=== PATIENT | female | born 1930 | race Caucasian/White ===

== ENCOUNTER → 2016-04-05 | Outpatient (CLI) | payer OTHER ==
[~2016-04-05] MED LIST: AMIO200T PO; APIX5TAB PO; ASPI81CH37 CHEW; CARD240C6 PO; KRIL300C3 PO; LEVO137T2 PO; LOVA40TA PO; METO50TA11 PO; MULTTAB67 PO; PRIM250T5 PO; TOLT1CAP4 PO; VITA100C6 PO; VITA60003 PO
--- NOTE | 2016-04-09 10:19 | RSPPFT ---
DATE OF PROCEDURE: 04/05/16 COMMENTS: Spirometry with FVC of 2.3, FEV1 of 1.5, FEV1/FVC ratio at 64%. A positive response to acutely inhaled bronchodilator noted. Slow vital capacity is 58% of predicted. TLC is 100%. Diffusion capacity is normal. IMPRESSION: 1. Moderately severe obstructive airways disease. 2. A positive response to acutely inhaled bronchodilator noted.
== END ==
LOC: HRSP 12:02
PROVIDERS: ATTEND Family Medicine
DX: J98.8 Other specified respiratory disorders (principal); Z79.899 Other long term (current) drug therapy
CPT/HCPCS: 94060; 94726; 94729

== ENCOUNTER 2016-05-30 07:22 | Day surgery (SDC) | payer OTHER ==
[~2016-05-30 07:22] MED LIST changes: -CARD240C6 PO
[2016-05-30] MEDS ORDERED: PROPOFOL 200 MG/20 ML AMP IV ONE (07:57)
[2016-05-30] MEDS ORDERED: INSULIN HUMAN REGULAR 1,000 UNITS/10 ML VIAL SQ PRN (08:15)
[2016-05-30] MEDS ORDERED: METOPROLOL TARTRATE 25 MG TAB PO PRN (08:15)
[2016-05-30] MEDS ORDERED: SODIUM CHLORID 0.9% 500 ML IV SCH (08:15)
[2016-05-30] MEDS ORDERED: LACTATED RINGER'S 1000 ML IV SCH (08:15)
--- NOTE | 2016-05-30 18:28 | EKG ---
Date Performed: 05/30/2016 Time Performed: 07:42:30 PTAGE: 85 years EKG: Atrial fibrillation Possible left anterior fascicular block Possible anterior infarct - age undetermined Lateral T wave changes may be due to myocardial ischemia Abnormal ECG NO PREVIOUS TRACING DOCTOR: Tristen Cordon Interpretating Date/Time 05/30/2016 18:26:56
--- NOTE | 2016-05-31 00:03 | MR ---
cc: DANO COBIAN M.D. DATE: 05/30/2016 PROCEDURE: Cardioversion. INDICATIONS FOR PROCEDURE: Mrs. Tejada is an 85 year-old female with atrial fibrillation, previous ablation, atrial fibrillation, admitted for cardioversion. The risks, the nature and the benefit of the procedure are clearly stated to her. Risks include cardiac arrest, need for endotracheal intubation, stroke, need for temporary pacing and even . The patient understood and agreed to proceed. PROCEDURE NOTE: After written informed consent was obtained, the patient was evaluate by the anesthesiologist. Once sedation verified, anterolateral pads were placed, a 200 sync biphasic joule was delivered that converted the patient into sinus rhythm. No incident report. The patient tolerated procedure. CONCLUSION: Successful cardioversion. COMMENT AND RECOMMENDATIONS: The patient will be observed and discharged home later today. Dano Cobian MD /[place] /11:03 PM /11:48 PM
== END 2016-05-30 13:18 | disposition home or self-care (01) ==
LOC: HDOC 07:22 → HDIC 07:23 → HDOC 13:18
PROVIDERS: ATTEND Internal Medicine Interventional Cardiology
DX: I48.91 Unspecified atrial fibrillation (principal); I10 Essential (primary) hypertension; R06.02 Shortness of breath
CPT/HCPCS: 92960; 93005

== ENCOUNTER 2016-07-23 14:05 | Day surgery (SDC) | payer OTHER ==
[~2016-07-23] VITALS: Ht 167.6 cm; Wt 74.5 kg
[2016-07-23] MEDS ORDERED: METOPROLOL TARTRATE 25 MG TAB PO PRN (14:45)
[2016-07-23] MEDS ORDERED: LACTATED RINGER'S 1000 ML IV PRN (14:45)
[2016-07-23] MEDS ORDERED: INSULIN HUMAN REGULAR 1,000 UNITS/10 ML VIAL SQ PRN (14:45)
[2016-07-23] MEDS ORDERED: POVIDONE IODINE 5% (ANTISEPSIS KIT) 4 APPLICATIONS EACH NARE PRN (14:45)
[2016-07-23] MEDS ORDERED: CHLORHEXIDINE GLUCONATE 2 % 1 PACK (2 CLOTHS) TOPICAL PRN (14:45)
[2016-07-23] MEDS ORDERED: SODIUM CHLORID 0.9% 500 ML IV PRN (14:45)
[2016-07-23] MEDS ORDERED: LORazepam 1 MG TAB SL SCH (14:45)
[2016-07-23] MEDS ORDERED: LEVOFLOXACIN 500 MG PREMIX INJ 100 ML IV ONE (15:00)
[2016-07-23] MEDS: SODIUM CHLORID 0.9% 500 ML INJ 500 ML IV SCH (15:00)
[2016-07-23 15:02] VITALS: BP 171/123; PULSE 116; RESP 18; TEMP 98.4; O2SAT 98
[2016-07-23 15:05] LABS: AUTOMATED NEUTROPHIL # 5.2 TH/MM3 (1.8-7.7); BASOPHIL # 0.1 TH/MM3 (0-0.2); BASOPHIL % 0.9 % (0.0-2.0); EOSINOPHIL # 0.2 TH/MM3 (0-0.4); EOSINOPHIL % 2.2 % (0.0-4.0); HEMATOCRIT 41.9 % (35.0-46.0); HEMO FLAGS DIFF FINAL; LYMPH % 21.4 % (9.0-44.0); LYMPHOCYTE # 1.7 TH/MM3 (1.0-4.8); MEAN CELL VOLUME 97.6 FL (80.0-100.0); MEAN CORPUSCULAR HGB CONC 33.8 % (32.0-36.0); MONO % 8.7 % (0.0-8.0); NEUT % 66.8 % (16.0-70.0); PLATELET COUNT 224 TH/MM3 (150-450); RED BLOOD COUNT 4.29 MIL/MM3 (4.00-5.30); RED CELL DISTRIBUTION WIDTH 14.9 % (11.6-17.2); WHITE BLOOD COUNT 7.8 TH/MM3 (4.0-11.0)
[2016-07-23] MEDS ORDERED: CARD240C6 PO (15:07)
[2016-07-23 15:16] LABS: POTASSIUM 4.1 MEQ/L (3.5-5.1)
[2016-07-23 15:20] LABS: APTT (PATIENT) 24.5 SEC (24.3-30.1); INTERNATIONAL NORMALIZED RATIO 1.1 RATIO; PROTHROMBIN TIME - PATIENT 12.2 SEC (9.8-11.6)
[2016-07-23] MEDS ORDERED: HEPARIN-NS/PF INJ 500 ML ONE (15:52)
[2016-07-23] MEDS ORDERED: PROPOFOL 200 MG/20 ML AMP OTHER ONE (16:46)
[2016-07-23] MEDS ORDERED: ISOPROTERENOL HCL 1 MG/5 ML AMP ONE (17:03)
[2016-07-23] MEDS ORDERED: PROTAMINE SULFATE 50 MG/5 ML VIAL ONE (17:03)
[2016-07-23] MEDS ORDERED: HEPARIN SODIUM - IV 10,000 UNITS/10 ML VIAL ONE (17:03)
[2016-07-23] MEDS ORDERED: HEPARIN-D5W INJ 250 ML ONE (17:03)
--- NOTE | 2016-07-23 18:55 | CATHPROC ---
[facility] HIS Report Study Information Study Number Scheduled Start Study Start [id number] 07/23/2016 Jul 23 2016 3:47PM Referring Institution Admit Source Facility Department 1 Other [facility] - Informatics Spec Physician and Clinical Staff Initial Maria Teresa Summers Energy Director Concepcion Amador,SEATING AND MOBILITY TECHNOLOGIST TECH2 Energy Director Juan Antonio Pardo,RT(R) Other Anesthesia, SERVICE ENGINE REPAIRER Recorder Kaci Pizarro,RN Recorder Ilana Macario,NERISSA Scrub Dottie Pendleton RCIS Procedures Performed Procedure Location (Site) Vessel Name Ablation Procedure Cardioversion ICE CATHETER INSERT RA Atruim RF Ablation LT. ATRIUM LT. ATRIUM RF Ablation RA Atruim Equipment Time Gas And Oil Checker Description Size Mfg Part Number Used/Scraped NEEDLE, TRANSSEPTAL NRG 98 15:51 [facility] [id number] Used C1 [employer]/ EP 15:51 KIT, TRANSDUCER / AFIB [id number] Used PACER COVER, TRANSDUCER CABLE 15:51 [employer] [id number] Used ACUNAV WIRE, GUIDE AMPLATZ STIFF 17:49 COOK/PACER 3MMJ [id number] Used 180CM 15:51 CORDIS/PACER SHEATH, FR10 RAMIRO 11CM FR 10 [id number] Used 15:51 CORDIS/PACER SHEATH, FR9 RAMIRO 11CM FR 9 [id number] Used 15:51 [employer] PACK, CCL CUSTOM * [id number] Used 15:51 [employer] PACER [place], LIMB * [id number] Used [id number] 15:51 [employer] MEDICAL SHEATH, FR4.5 PRELUDE 11CM FR 4.5 Used [id number] 15:51 NAMIC TUBING, HIGH PRESSURE 48" 48" [id number] Used 15:51 NAMIC TUBING, HIGH PRESSURE 48" 48" [id number] Used 15:51 [employer] BLANKET,WARM AIR CCL * [id number] Used CATHETER, TACTICATH ABLAT [id number] 15:51 [facility] [employer] Used 65 BUNDLE BUNDLE CATHETER, FR7 OPTIMA SPIRAL 15:51 [facility] [facility] MEDICAL FR7 [id number] Used BUNDLE 15:51 [facility] MEDICAL CATHETER, JSN, QUAD BUNDLE FR 5 [id number] Used 15:51 [facility] MK MEDICAL CATHETER, JSN, QUAD BUNDLE FR 5 [id number] Used 15:51 [facility] MEDICAL ELECTRODE KIT, MARIA GUADALUEP X SURFACE * [id number] Used SET, [place] TUBING 15:51 [facility] MEDICAL [id number] Used BUNDLE 15:51 [facility]. MK MEDICAL SHEATH, EPS, FR6 FAST CATH FR 6 [id number] Used 15:51 [facility] MK MEDICAL SHEATH, EPS, FR7 FAST CATH FR 7 [id number] Used 15:51 [facility] MEDICAL SHEATH, EPS, FR8 FAST CATH FR 8 [id number] Used SHEATH, FR8.5 STEERABLE SM 15:51 [facility] MEDICAL 71CM [id number] Used 71CM BUNDLE [facility] PAD, ELECTROSURGICAL 15:51 * [id number] Used SURGICAL GROUNDING (BLUE) History: Allergies Allergy Reaction NKDA History: Risk Factors Hypertension Dyslipidemia Yes Yes Labs Hgb (g/dl) Hct (%) RBC (MIL/MM3) WBC (l/cumm) Platelets (thousands) 12.00-18.00 37.00-55.00 4.80-6.20 4.80-10.80 140.00-450.00 14.0 21 4.2 7.8 224 Glucose (mg/dl) BUN (mg/dl) Creatinine (mg/dl) BUN:Creatinine (1:x) 60.00-110.00 8.00-20.00 0.10-9.00 10.00-20.00 96 20 0.9 22.2 Na (meq/l) K (meq/l) 138.00-146.00 3.80-5.10 138 4.1 INR (PTT:PT) 0.50-2.00 1.1 Medication Medication Total Dose (Bolus/Oral) Medication Total Dosage/Unit 1% XYLOCAINE 40 mL HEPARIN 12278 units PROTAMINE 40 mg Medications (Bolus/Oral) Medication Time Given Dosage/Unit Administered By Reason 1% XYLOCAINE 07/23/2016 5:36:12 PM 20 mL Maria Teresa Cobian 20 mL 1% XYLOCAINE given in lab by Maria Teresa Cobian in Left Groin via Subcutaneous. 1% XYLOCAINE 07/23/2016 5:40:27 PM 20 mL Mango, Maria Teresa 20 mL 1% XYLOCAINE given in lab by Maria Teresa Cobian in Right Groin via Subcutaneous. HEPARIN 07/23/2016 5:50:45 PM 84261 units Anesthesia, SERVICE ENGINE REPAIRER As per physicians v erbal order 34111 units HEPARIN given in lab by Anesthesia, SERVICE ENGINE REPAIRER via Peripheral IV. Ordered by Maria Teresa Cobian. Carolynn son: As per physicians verbal order. PROTAMINE 07/23/2016 6:37:03 PM 40 mg Anesthesia, SERVICE ENGINE REPAIRER As per physicians lorene bal order 40 mg PROTAMINE given in lab by Anesthesia, SERVICE ENGINE REPAIRER via Peripheral IV. Ordered by Maria Teresa Cobian. Reason: As per physicians verbal order. Medication (Drip) Medication Time Given Dosage/Unit Concentration/Unit Diluent (ml) Solution ISUPREL 07/23/2016 6:31:03 PM 2 mcg/min 1 mg 250 NaCl .9 2 mcg/min ISUPREL given in lab by Anesthesia, SERVICE ENGINE REPAIRER via Peripheral IV. Pump/Drip Flow = 30 ml/hr using NaCl .9 with a concentration of 1 mg in 250 ml. Ordered by Maria Teresa Cobian. Initial Case Assessment Cardiovascular HR Rhythm NIBP 104 af 178/130 Edema Present Skin color Skin None Normal Warm Dry Neurological State Oriented to time-place- Alert Moves all extremities person Respiration - General Respiration Rate SpO2 (%) O2 (lpm) (B/min) 16 95 0 Final Case Assessment Cardiovascular HR Rhythm NIBP Chest Pain 88 sr 166/110 0 Edema Present Skin color Skin None Normal Warm Dry Circulatory - Right Pulses Dorsalis Pedis 3 Scale (0,1,2,3,4,d) Circulatory - Left Pulses Dorsalis Pedis 2 Scale (0,1,2,3,4,d) Circulatory - Lower Extremities Color Lower Right Color Lower Left Normal Normal Neurological State Oriented to time-place- Lethargic Moves all extremities person Respiration - General Respiration Rate SpO2 (%) O2 (lpm) (B/min) 16 99 4 Chronological Log Time Study Chronological Log 16:25:50 Patient arrived via Bed. 16:36:14 Patient Name, D.O.B, / Armband Verified By R.N. 16:36:21 Pre-op and post- op instructions given; patient acknowledges understanding of instructions. 16:36:26 Presedation assessment performed by Informatics Spec RN. 16:36:43 Patient has been NPO for More than 6Hrs. 16:36:53 Consent signed by the physician and the patient and verified by the Informatics Spec staff. 16:37:03 Verbal Stimulation=2 Physical Stimulation=2 Airway=2 Respiration=2 TOTAL=2. (0=absent, 1=li mited, 2=present) 16:37:34 Skin Breakdown. None per pt. 16:37:45 Patient Warmer Placed on the Table. 16:37:51 Ean Prominences Protected 16:37:53 A # 20 IV was noted in the Antecubital (left). Grade = 0 16:38:49 A # 20 IV was noted in the Forearm (right). Grade = 0 16:39:07 History and physical on the chart or being dictated. Assessment: Initial Case, RY=073 BPM, Rhythm=af, EEIB=440/130 mmhg, Edema=None, Color=Normal, S kin = Warm, Dry 16:39:11 Neurological: State=Alert, Ox3, BERMAN Respiration: Resp=16 B/min, SpO2=95 %, O2=0 lpm 16:40:47 Table restraints applied according to hospital policy 16:41:00 Right groin prepped with 2% chlorhexidine, and with a 3 min. waiting time. 16:45:00 Anesthesia at bedside. Assumes care of patient. See anesthesia flow sheet for all vital sig ns and medications given. 16:51:57 Reference ECG taken 16:56:38 SE out. MM in. 16:56:44 St Mk rep present. 17:13:25 Anesthesiologist present for intubation. 17:23:08 MD paged 17:23:22 MD responded 17:26:31 MD arrived. Time Out. Correct patient, procedure, procedure equipment, site and side verified with physicia n present. Time 17:30:00 concurred by MD, individual staff and SERVICE ENGINE REPAIRER. Time Out #2 - Consents verified, patient in correct position, all results are labled and displa yed, safety precautions 17:30:13 taken, antibiotics administered. Time out concurred by MD, individual staff and SERVICE ENGINE REPAIRER in procedu re 17:30:37 Case Start 17:30:52 Yunier in progress. 17:35:19 Yunier complete. 17:36:12 20 mL 1% XYLOCAINE given in lab by Maria Teresa Cobian in Left Groin via Subcutaneous. 17:36:39 Vascular access was obtained in the Fem Vein (left). 17:36:46 Vascular access was obtained in the Fem Vein (left). 17:36:58 Vascular access was obtained in the Fem Vein (left). 17:37:06 Vascular access was obtained in the Fem Art (left). A SHEATH, FR4.5 PRELUDE 11CM FR 4.5 was advanced into the Fem Art (left) using the Modified Katie geoffrey technique. 17:37:25 0.9ns pressure bag connected. 17:37:55 A SHEATH, EPS, FR6 FAST CATH FR 6 was advanced into the Fem Vein (left) using the Modified Seldinger technique. 17:38:05 A SHEATH, EPS, FR7 FAST CATH FR 7 was advanced into the Fem Vein (left) using the Modified Seldinger technique. 17:38:20 A SHEATH, FR10 RAMIRO 11CM FR 10 was advanced into the Fem Vein (left) using the Modified S eldinger technique. 17:40:27 20 mL 1% XYLOCAINE given in lab by Maria Teresa Cobian in Right Groin via Subcutaneous. 17:40:52 Vascular access was obtained in the Fem Vein (right). 17:40:57 A SHEATH, EPS, FR8 FAST CATH FR 8 was advanced into the Fem Vein (right) using the Modified Seldinger technique. 17:43:21 Reference ECG taken A CATHETER, JSN, QUAD BUNDLE FR 5 was advanced vis Fem Vein (left) and placed in the CS. Placem ent was visually 17:43:22 confirmed under fluoroscopy. 17:44:08 Beginning of case Body Temp 35.9. A CATHETER, JSN, QUAD BUNDLE FR 5 was advanced vis Fem Vein (left) and placed in the HIS. Place ment was 17:44:55 visually confirmed under fluoroscopy. 17:46:51 ice catheter Was Postioned. A SHEATH, FR8.5 STEERABLE SM 71CM BUNDLE 71CM was exchanged in the Fem Vein (right). This was n ecessary in 17:47:01 order for catheter support. 17:48:29 Unable to advance [place] over 0.035 wire. Amplatz wire used 17:50:[place] [address] units HEPARIN given in lab by Anesthesia, SERVICE ENGINE REPAIRER via Peripheral IV. Ordered by Damon Cobian Reason: As per 17:50:45 physicians verbal order. 17:52:14 A eps was advanced to the right atrium and passed through the septal wall to the left atriu m. 17:52:20 [place] out A CATHETER, FR7 OPTIMA SPIRAL BUNDLE FR7 was advanced vis Fem Vein (right) and placed in the LA . Placement 17:52:48 was visually confirmed under fluoroscopy. Mapping in progress. 17:58:00 Activated Clotting Time Drawn A CATHETER, TACTICATH ABLAT 65 BUNDLE was advanced vis Fem Vein (right) and placed in the LA. P lacement was 18:02:29 visually confirmed under fluoroscopy. 18:04:45 Mapping complete. Mapping catheter removed. 18:04:54 RF Ablation of the LT. ATRIUM with a CATHETER, TACTICATH ABLAT 65 BUNDLE. 18:07:18 ACT (Normal Range 90-180) = 342 18:18:00 Activated Clotting Time Drawn 18:20:27 RF Catheter was removed A CATHETER, TACTICATH ABLAT 65 BUNDLE was advanced vis Fem Vein (right) and placed in the HRA. Placement 18:22:46 was visually confirmed under fluoroscopy. 18:23:24 RF Ablation of the RA with a CATHETER, TACTICATH ABLAT 65 BUNDLE. 18:23:30 Ablation complete. 18:23:40 ECG rhythm of AFnoted. Patient cardioverted at 200 joules. synch 18::58 Monitor noted SB. 18:24:00 ACT (Normal Range 90-180) = 347 18:26:50 Catheters removed without difficulty. A SHEATH, FR9 RAMIRO 11CM FR 9 was exchanged in the Fem Vein (right). This was necessary in ord er to achieve 18:27:09 vascular hemostasis. 2 mcg/min ISUPREL given in lab by Anesthesia, SERVICE ENGINE REPAIRER via Peripheral IV. Pump/Drip Flow = 30 ml/hr using NaCl .9 with 18:31:03 a concentration of 1 mg in 250 ml. Ordered by Maria Teresa Cobian. 18:32:30 Isuprel gtt off per order. 40 mg PROTAMINE given in lab by Anesthesia, SERVICE ENGINE REPAIRER via Peripheral IV. Ordered by Maria Teresa Cobian. R allyson: As per 18:37:03 physicians verbal order. 18:39:11 PACU called. Spoke to Phuong 18:39:24 Bedside Report will be given. 18:39:26 No case complications noted. 18:39:34 Ablation procedure performed: AFIB. 18:39:37 EP Procedure was performed. 18:39:47 Catheter was removed 18:40:[address], sutured, 0.9ns kvo connected and will be removed in Holding Area 18:40:49 No case complications noted. 18:40:50 Cine recording checked. 18:47:30 Activated Clotting Time Drawn 18:50:35 ACT (Normal Range 90-180) = 140 18:50:52 Sterile dressing applied to site 18:50:53 Case End 18:51:16 Defibrillator and ground pads removed. Skin intact. Assessment: Final Case, HR=88 BPM, Rhythm=sr, RMLU=329/110 mmhg, Chest Pain=0, Edema=None, Col or=Normal, Skin = Warm, Dry Right Pulses: Salty Ped=3 Left Pulses: Salty Ped=2 18:51:20 Lower Right Extremities: Color=Normal Lower Left Extremities: Color=Normal Neurological: State=Lethargic, Ox3, BERMAN Respiration: Resp=16 B/min, SpO2=99 %, O2=4 lpm 18:58:39 Patient moved to stretcher End Study - Contrast Media Used In Study Contrast Total Opened (mL) Total Used (mL) Total Wasted (mL) Unspecified 0 0 0 End Study - Maximum Contrast Load Max Contrast Load (mL) 413.9 End Study - Radiation Exposure Fluoro Time (minutes) 4.1 End Study - Patient Disposition Complications Transferred To Interventional Outcome No Telemetry Bed successful
[2016-07-23] MEDS ORDERED: LIDOCAINE HCL 1% 50 ML VIAL INFIL PRN (19:00)
[2016-07-23] MEDS ORDERED: ONDANSETRON HCL 4 MG/2 ML VIAL IV PRN (19:00)
[2016-07-23] MEDS ORDERED: ATROPINE SULFATE 1 MG/ML VIAL IV PRN (19:00)
[2016-07-23] MEDS ORDERED: LORazepam 2 MG/ML VIAL IV PRN (19:00)
[2016-07-23] MEDS ORDERED: SODIUM CHLOR 0.9% 250 ML INJ 250 ML IV PRN (19:00)
[2016-07-23] MEDS ORDERED: METOCLOPRAMIDE HCL 10 MG/2 ML VIAL IV PRN (19:00)
[2016-07-23] MEDS ORDERED: oxyCODONE/ACETAMINOPHEN 5 MG/325 MG TAB PO PRN ×2 (19:00)
[2016-07-23] MEDS ORDERED: fentaNYL CITRATE 250 MCG/5 ML AMP ONE (19:22)
[2016-07-23] MEDS ORDERED: BACITRACIN OINT 0.9 GM PKT TOP ONE (19:30)
[2016-07-23 20:30] VITALS: BP 146/88; PULSE 56; RESP 18; TEMP 97.5; O2SAT 95
[2016-07-23 20:48] VITALS: PULSE 55
[2016-07-23 21:00] VITALS: PULSE 56
[2016-07-23] MEDS: APIXABAN 5 MG TABLET PO SCH (21:32)
[2016-07-23 22:00] VITALS: PULSE 57
--- NOTE | 2016-07-23 22:34 | EKG ---
Date Performed: 07/23/2016 Time Performed: 19:30:35 PTAGE: 85 years EKG: SINUS BRADYCARDIA WITH FIRST DEGREE AV BLOCK INFERIOR MYOCARDIAL INFARCTION , PROBABLY OLD ABNORMAL ECG PREVIOUS TRACING : 07/23/2016 15.03 Compared to previous tracing, Sinus rhythm has replaced atrial fibrillation. DOCTOR: Dennis Fitzgerald Interpretating Date/Time 07/23/2016 22:33:26
--- NOTE | 2016-07-23 22:39 | EKG ---
Date Performed: 07/23/2016 Time Performed: 15:03:14 PTAGE: 85 years EKG: Atrial fibrillation with rapid ventricular response Leftward axis Possible anterior infarct - age undetermined Abnormal ECG PREVIOUS TRACING : 05/30/2016 07.42 No significant change from previous tracing noted. DOCTOR: Dennis Fitzgerald Interpretating Date/Time 07/23/2016 22:38:07
[2016-07-23 23:28] VITALS: BP 106/69; PULSE 58; PULSE 70; RESP 18; TEMP 97.8; O2SAT 93
[2016-07-24] VITALS (11 sets, daily range): BP systolic 124–129; BP diastolic 73–86; PULSE 61–76; RESP 18–20; TEMP 97.7–97.8; O2SAT 98–99
[2016-07-24] MEDS ORDERED: LEVOTHYROXINE SODIUM 25 MCG TAB PO SCH (06:00)
[2016-07-24] MEDS ORDERED: LEVOTHYROXINE SODIUM 112 MCG TAB PO SCH (06:00)
[2016-07-24] MEDS: SODIUM CHLORID 0.9% 500 ML INJ 500 ML IV SCH (07:40)
--- NOTE | 2016-07-24 08:17 | PD.CARD.PN ---
Subjective Subjective Remarks No complaints Objective Medications Current Medications Medications (Trade) Dose Ordered Sig/Charisma Route Start Time Stop Time Status Last Admin (NS 500 ml Inj) 500 ml @ 30 mls/hr [id number] IV 07/23/16 15:00 (Percocet 5-325 Mg) 1 tab Q4H PRN PO 07/23/16 19:00 (Percocet 5-325 Mg) 2 tab Q4H PRN PO 07/23/16 19:00 (Ativan Inj) 0.5 mg UNSCH PRN IV 07/23/16 19:00 07/24/16 18:59 Atropine Sulfate 0.5 mg 0.5 mg UNSCH PRN IV 07/23/16 19:00 (NS 250 ml Inj) 250 ml @ 500 mls/hr ONCE PRN IV 07/23/16 19:00 07/24/16 18:59 (Reglan Inj) 10 mg Q4H PRN IV 07/23/16 19:00 (Zofran Inj) 4 mg Q4H PRN IV 07/23/16 19:00 (Xylocaine 1% Inj (50 ml)) 10 ml UNSCH PRN INFIL 07/23/16 19:00 07/24/16 18:59 (Cordarone) 200 mg DAILY PO 07/24/16 09:00 (Eliquis) 5 mg BID PO 07/23/16 21:00 07/23/16 21:32 (Aspirin Chew) 81 mg DAILY CHEW 07/24/16 09:00 (Cardizem Cd) 240 mg DAILY PO 07/24/16 09:00 (Pravachol) 40 mg DAILY PO 07/24/16 09:00 (Mysoline) 125 mg TID PO 07/24/16 09:00 (Synthroid) 112 mcg DAILY@06 PO 07/24/16 06:00 07/24/16 06:06 (Theragran) 1 tab DAILY PO 07/24/16 09:00 (Synthroid) 25 mcg DAILY@06 PO 07/24/16 06:00 07/24/16 06:06 Vital Signs / I&O Vital Signs Date Time Temp Pulse Resp B/P Pulse Ox O2 Delivery O2 Flow Rate FiO2 07/24/16 07:00 65 07/24/16 07:00 99 07/24/16 07:00 97.7 65 20 129/86 99 07/24/16 06:13 61 07/24/16 05:13 62 07/24/16 04:28 61 07/24/16 03:00 66 Nasal Cannula 2.00 07/24/16 03:00 66 07/24/16 03:00 97.8 70 18 124/73 98 07/24/16 02:50 97 Nasal Cannula 2.00 07/24/16 02:20 61 07/24/16 01:05 62 07/24/16 00:00 64 07/23/16 23:32 93 Nasal Cannula 3.00 07/23/16 23:28 70 07/23/16 23:28 97.8 58 18 106/69 93 07/23/16 22:00 57 07/23/16 21:00 56 07/23/16 20:48 55 07/23/16 20:30 95 Nasal Cannula 3.00 07/23/16 20:30 97.5 56 18 146/88 95 07/23/16 20:15 97.6 56 18 140/85 100 Nasal Cannula 3 07/23/16 20:00 58 17 134/79 99 Nasal Cannula 3 07/23/16 19:45 58 20 137/86 99 Nasal Cannula 3 07/23/16 19:30 57 19 145/82 100 Nasal Cannula 3 07/23/16 19:15 65 22 150/84 100 Nasal Cannula 3 07/23/16 19:11 97.4 67 21 147/89 95 Nasal Cannula 3 07/23/16 15:02 98.4 116 18 171/123 98 I/O 07/23/16 07/23/16 07/23/16 07/24/16 07/24/16 07/24/16 07:00 15:00 23:00 07:00 15:00 23:00 Intake Total 1050 ml 240 ml Output Total 800 ml 150 ml Balance 250 ml 90 ml Intake Oral 50 ml 240 ml Other 1000 ml Output Urine Total 800 ml 150 ml Stool Total 0 ml Physical Exam GENERAL: Well-nourished, well-developed patient. SKIN: Warm and dry. Groin sites soft without swelling or bleeding. HEAD: Normocephalic. EYES: No scleral icterus. No injection or drainage. NECK: Supple, trachea midline. No JVD or lymphadenopathy. CARDIOVASCULAR: Regular rate and rhythm without murmurs, gallops, or rubs. RESPIRATORY: Breath sounds equal bilaterally. No accessory muscle use. GASTROINTESTINAL: Abdomen soft, non-tender, nondistended. EXTREMITIES: No cyanosis, or edema. NEUROLOGICAL: Awake, alert, and oriented x 3. Non-focal. Laboratory Laboratory Tests Test 07/23/16 14:36 White Blood Count 7.8 TH/MM3 Red Blood Count 4.29 MIL/MM3 Hemoglobin 14.2 GM/DL Hematocrit 41.9 % Mean Corpuscular Volume 97.6 FL Mean Corpuscular Hemoglobin 33.0 PG Mean Corpuscular Hemoglobin 33.8 % Concent Red Cell Distribution Width 14.9 % Platelet Count 224 TH/MM3 Mean Platelet Volume 8.4 FL Neutrophils (%) (Auto) 66.8 % Lymphocytes (%) (Auto) 21.4 % Monocytes (%) (Auto) 8.7 % Eosinophils (%) (Auto) 2.2 % Basophils (%) (Auto) 0.9 % Neutrophils # (Auto) 5.2 TH/MM3 Lymphocytes # (Auto) 1.7 TH/MM3 Monocytes # (Auto) 0.7 TH/MM3 Eosinophils # (Auto) 0.2 TH/MM3 Basophils # (Auto) 0.1 TH/MM3 CBC Comment DIFF FINAL Differential Comment Prothrombin Time 12.2 SEC Prothromb Time International 1.1 RATIO Ratio Activated Partial 24.5 SEC Thromboplast Time Sodium Level 138 MEQ/L Potassium Level 4.1 MEQ/L Chloride Level 98 MEQ/L Carbon Dioxide Level 32.0 MEQ/L Anion Gap 8 MEQ/L Blood Urea Nitrogen 20 MG/DL Creatinine 0.97 MG/DL Estimat Glomerular Filtration 55 ML/MIN Rate Random Glucose 96 MG/DL Calcium Level 9.8 MG/DL Blood Type A POSITIVE Antibody Screen NEGATIVE Assessment and Plan Problem List: (1) Atrial fibrillation Assessment and Plan: NSR on tele s/p ablation. (2) S/P ablation of atrial fibrillation Assessment and Plan: Groin sites stable, NSR on tele. Continue Eliquis. DC home, f/u with Dr. Cobian in 3 weeks per my d/w him. Problem Qualifiers (1) Atrial fibrillation: Qualified Code: I48.91 - Atrial fibrillation, unspecified type Inez Steen July 24, 2016 08:17
[2016-07-24] MEDS: APIXABAN 5 MG TABLET PO SCH (08:54)
[2016-07-24] MEDS ORDERED: MULTIVITAMIN TAB PO SCH (09:00)
[2016-07-24] MEDS ORDERED: PRIMIDONE 250 MG TAB PO SCH (09:00)
[2016-07-24] MEDS ORDERED: ASPIRIN 81 MG CHEW TAB CHEW SCH (09:00)
[2016-07-24] MEDS ORDERED: PRAVASTATIN SOD 40 MG TAB PO SCH (09:00)
[2016-07-24] MEDS ORDERED: AMIODARONE 200 MG TAB PO SCH (09:00)
[2016-07-24] MEDS ORDERED: DILTIAZEM-CD 240 MG CAP ER PO SCH (09:00)
[2016-07-24 09:07] LABS: APTT (PATIENT) 26.1 SEC (24.3-30.1); INTERNATIONAL NORMALIZED RATIO 1.2 RATIO; PROTHROMBIN TIME - PATIENT 13.2 SEC (9.8-11.6)
--- NOTE | 2016-07-24 11:47 | EKG ---
Date Performed: 07/24/2016 Time Performed: 06:36:56 PTAGE: 85 years EKG: Sinus rhythm with PAC(s) Possible anterior infarct - age undetermined Low QRS voltages in precordial leads Abnorm al ECG PREVIOUS TRACING : 07/23/2016 19.30 No significant change from previous tracing noted. DOCTOR: Dennis Fitzgerald Interpretating Date/Time 07/24/2016 11:46:06
--- NOTE | 2016-07-29 17:40 | ETE ---
Study Study Date:07/23/2016 STUDY CONCLUSIONS SUMMARY - Left ventricle: The cavity size was normal. Wall thickness was normal. Systolic function was severely reduced. The estimated ejection fraction was in the range of 20% to 25%. Wall motion was normal; there were no regional wall motion abnormalities. - Aortic valve: No evidence of vegetation. - Mitral valve: No evidence of vegetation. Mild regurgitation. - Left atrium: The atrium was moderately dilated. No evidence of thrombus in the atrial cavity or appendage. No evidence of thrombus in the atrial cavity or appendage. No evidence of thrombus in the atrial cavity or appendage. - Right atrium: No evidence of thrombus in the atrial cavity or appendage. - Atrial septum: No defect or patent foramen ovale was identified. Echo contrast study showed no xaegs-tk-demx atrial level shunt , at baseline or with provocation. Echo contrast study showed no jrdrk-yo-yzeg atrial level shunt, at baseline or with provocation. - Tricuspid valve: No evidence of vegetation. Mild regurgitation. - Pulmonic valve: No evidence of vegetation. If LV function is below 40, please consider prescribing an ACEI or ARB or document rationale for non-use. PROCEDURE DATA Consent: The risks, benefits, and alternatives to the procedure were explained to the patient and informed consent was obtained. Procedure: Initial setup. The patient was brought to the laboratory in the fasting state. Intravenous access was obtained. Surface ECG leads and pulse oximetric signals were monitored. Sedation. Conscious sedation was administered by cardiology staff. Transesophageal echocardiography. Topical anesthesia was obtained using viscous lidocaine. A transesophageal probe was inserted by the attending tax collection coordinator. Image quality was good. Study completion: All IVs inserted during the procedure were removed. The patient tolerated the procedure well. There were no complications. Transesophageal echocardiography. 2D, complete spectral Doppler, and color Doppler. CARDIAC ANATOMY LEFT VENTRICLE: The cavity size was normal. Wall thickness was normal. Systolic function was severely reduced. The estimated ejection fraction was in the range of 20% to 25%. Wall motion was normal; there were no regional wall motion abnormalities. AORTIC VALVE: Trileaflet; mildly thickened, mildly calcified leaflets. Cusp separation was normal. No evidence of vegetation. Doppler: No significant regurgitation. Aorta: - There was no atheroma. There was no evidence for dissection. Aortic root: The aortic root was not dilated. Ascending aorta: The ascending aorta was normal in size. Aortic arch: The aortic arch was normal in size. Descending aorta: The descending aorta was normal in size. MITRAL VALVE: Structurally normal valve. Leaflet separation was normal. No evidence of vegetation. Doppler: Mild regurgitation. LEFT ATRIUM: The atrium was moderately dilated. No evidence of thrombus in the atrial cavity or appendage. No evidence of thrombus in the atrial cavity or appendage. No evidence of thrombus in the atrial cavity or appendage. The appendage was morphologically a left appendage, multilobulated, and of normal size. Emptying velocity was normal. ATRIAL SEPTUM: No defect or patent foramen ovale was identified. Echo contrast study showed no cwzmg-ws-qeai atrial level shunt, at baseline or with provocation. Echo contrast study showed no gwvts-wj-dnor atrial level shunt, at baseline or with provocation. RIGHT VENTRICLE: The cavity size was normal. Wall thickness was normal. Systolic function was normal. PULMONIC VALVE: Structurally normal valve. No evidence of vegetation. TRICUSPID VALVE: Structurally normal valve. Leaflet separation was normal. No evidence of vegetation. Doppler: Mild regurgitation. PULMONARY ARTERY: The main pulmonary artery was normal-sized. RIGHT ATRIUM: The atrium was normal in size. No evidence of thrombus in the atrial cavity or appendage. The appendage was morphologically a right appendage. PERICARDIUM: There was no pericardial effusion. Prepared and signed by Maria Teresa Cobian [id number]
--- NOTE | 2016-09-12 19:40 | PD.CARD ---
Atrial Fibrillation Ablation PROCEDURE DATE: July 23, 2016 PROCEDURES PERFORMED: 1. Electrophysiology study on Isuprel infusion 2. CS cannulation 3. 3-D mapping 4. Transseptal approach 5. Right and left heart catheterization 6. Intracardiac echo 7. Radiofrequency ablation of atrial fibrillation 8. Pulmonary vein isolation 9. Posterior wall ablation 10. Mitral valve isolation 11. Mitral line creation 12. Left atrial tachycardia ablation 13. Roof line creation 14. Floor line creation 15. Anterior and posterior ablation 16. Cardioversion INDICATIONS FOR THE PROCEDURE Ms. Tejada is a 85-year-old female with atrial fibrillation, previous ablation, symptomatic, on anticoagulation, admitted for electrophysiology study and ablation. The risks, the nature and the benefits of the procedure were clearly stated to her. The risks include pneumothorax, cardiac perforation, stroke, need for open heart surgery and even . The patient understood and agreed to proceed. DESCRIPTION OF THE PROCEDURE IN DETAIL As written informed consent was obtained prior to esophageal echocardiogram, the patient was kept on the table where she was prepped and draped in the usual sterile fashion. Conscious sedation was initiated and maintained throughout the procedure by the anesthesiologist. Once sedation was verified, the right and left inguinal areas were anesthetized with 2% Xylocaine. Using modified Seldinger technique, the left femoral vein was cannulated on three occasions, three guidewires were advanced. Over the wire a 6, 7 and a 10-Hungarian Hemaquet were advanced. Then the left femoral artery was cannulated on one occasion, one guidewire was advanced. Over the wire a 4-Hungarian Hemaquet was advanced. Then the right femoral vein was cannulated on one occasion, one guidewire was advanced. Over the wire a 8-Hungarian Hemaquet was advanced. Then under fluoroscopic guidance through the 6 and 7-Hungarian Hemaquet, two 5-Hungarian Jordana curved quadripolar electrophysiology catheters were advanced and placed around the His as well as coronary sinus. Basic interval was measured. The patient was in atrial fibrillation. Through the 10-Hungarian Hemaquet, a CordWorkpop Garber AcuNav intracardiac echo catheter was advanced and placed at the right atrium. Multiple view was obtained. There was no pericardial effusion, pulmonary vein was seen, atrial septal was visualized. Then the 8-Hungarian Hemaquet in the right femoral vein was exchanged for Agilis transseptal sheath that was placed all the way to the superior vena cava. Through the sheath a Gato needle was advanced, then the sheath, the dilator and the needle were progressed until foci engaged. Once engaged, the needle was advanced. RF was delivered for 2 seconds. I was able to cross into the left atrium. Once the needle crossed, the dilator was advanced. Once the dilator crossed, the sheath was advanced. Once the sheath crossed, the dilator and the needle were removed. At this point I did flood the system and fluid movement was seen in the left atrium the indicates the sheath is in good position. The patient already received 10,000 units of heparin. The goal is to keep an ACT around 350 during ablation. Then through the sheath a St. Mk 20 pulse circumferential catheter was advanced. Using Matchbook endocardial solution mapping system, a two-dimensional configuration of the left atrium was obtained. Points were taken at the left superior and inferior veins, right superior and inferior veins, mitral valve, and appendages. There were signals around the left superior and right inferior veins. Then through the sheath a St. Mk TactiCath 65cm 3.5mm irrigated tipped mapping and radiofrequency ablation catheter was advanced. Esophageal probe was placed temperature monitoring during ablation. When it increased to 0.5 degrees Celsius above baseline, I moved to a different area of the atrium. First I did isolate the left superior and inferior vein. I did make a big [place] around the veins. Posterior was ablated. Then a roof line was created, a floor line was created, a mitral line was isolated, then the mitral valve was isolated. The patient was already in left atrial tachycardia. I did create a new line from the floor to the roof area, passing by the left atrial appendage. Then the right superior and inferior veins were isolated. I did remap the atrium. There is no significant signal in the atrium. At this point I decided to proceed with cardioversion. A 200 sync biphasic joule was delivered that converted the patient into sinus rhythm. At that point I did advance the circumferential catheter again into the vein. There was no signal into the vein, pacing from the vein showed no conduction to the atrium. Isuprel infusion was initiated at 20 mcg for 10 minutes. No tachyarrhythmia was induced, post Isuprel no tachyarrhythmia was induced. At that point the procedure was complete. All catheters were removed, atrial septal sheath was exchanged for 9-Hungarian Hemaquet, intracardiac echo showed no pericardial effusion. There is still good flow in the pulmonary vein. The patient is going to be transferred to the recovery room. No incident report. The patient tolerated the procedure. Blood loss was minimal. FINDINGS 1. Electrocardiogram: At baseline the patient was in atrial fibrillation, post procedure the patient was in sinus rhythm. 2. Basic interval: Base cycle length was around 540. Post ablation she was around 980 milliseconds. 3. Tachyarrhythmia: Atrial fibrillation was mapped and ablated. Atrial tachycardia was ablated. The ablation was successful. CONCLUSION Successful electrophysiology study, mapping, radiofrequency ablation of atrial fibrillation, left atrial tachycardia, pulmonary vein isolation, posterior ablation, mitral valve isolation, mitral line creation, roof line creation, floor line creation, left atrial tachycardia, and cardioversion. COMMENTS AND RECOMMENDATIONS The patient is going to be transferred to the telemetry unit. Will be observed and when stable can be discharged home. Maria Teresa Cobian MD Sep 12, 2016 19:40
== END 2016-07-24 11:25 | disposition home or self-care (01) ==
LOC: HDOC 14:05 → HDIC 14:07 → HCIN 20:30 → HDOC 07-24 11:25
PROVIDERS: ATTEND Internal Medicine Interventional Cardiology
DX: I48.91 Unspecified atrial fibrillation (principal); R00.2 Palpitations; I12.9 Hypertensive chronic kidney disease with stage 1 through stage 4 chronic kidney disease, or unspecified chronic kidney disease; N18.9 Chronic kidney disease, unspecified; E78.5 Hyperlipidemia, unspecified; E03.9 Hypothyroidism, unspecified; R25.1 Tremor, unspecified
CPT/HCPCS: 00537; 80048; 85002; 85025; 85610; 85730; 86850; 86900; 86901; 92960; 93005; 93312; 93320; 93325; 93613; 93623; 93656; 93662; C1730; C1731; C1732; C1759; C1766; C2630; J1644; J1956; J2720; J3010

== ENCOUNTER 2017-06-03 13:13 | Day surgery (SDC) | payer OTHER ==
[~2017-06-03 13:13] MED LIST changes: -ASPI81CH37 CHEW; +ASPI81CH6 CHEW; +CARD240C6 PO; -METO50TA11 PO; -TOLT1CAP4 PO; -VITA60003 PO
[2017-06-03 14:12] VITALS: BP 159/116; PULSE 94; RESP 20; TEMP 97.8; O2SAT 92
[2017-06-03] MEDS ORDERED: LEVO175T2 PO (14:14)
[2017-06-03] MEDS ORDERED: VITA250T3 PO (14:14)
[2017-06-03] MEDS ORDERED: XARE20TA PO (14:14)
[2017-06-03] MEDS ORDERED: PRIM50TA5 PO (14:14)
[2017-06-03] MEDS ORDERED: POTA-163 PO (14:16)
[2017-06-03] MEDS ORDERED: METO100T PO (14:16)
[2017-06-03] MEDS ORDERED: FURO1TAB60 PO (14:16)
--- NOTE | 2017-06-03 14:26 | RADRPT ---
EXAM DATE/TIME: 06/03/2017 13:39 [facility] COMPARISON: No previous studies available for comparison. INDICATIONS : Left pleural effusion. MEDICAL HISTORY : Hypertension. Thyroid disease. SURGICAL HISTORY : None. ENCOUNTER: Initial ACUITY: 1 day PAIN SCORE: 0/10 LOCATION: Left chest MEASUREMENTS: SKIN TO PARIETAL PLEURA: 2.6 cm SKIN TO MAX SAFE DEPTH: 5.4 cm ESTIMATED FLUID VOLUME: 445 cc FLUID COMPOSITION: simple FINDINGS: Pleural effusion as above. CONCLUSION: 1. Simple appearing moderate size left pleural effusion, as above. Giovani Monique MD on June 03, 2017 at 14:24 Board Certified Radiologist. This report was verified electronically.
[2017-06-03 14:32] LABS: AUTOMATED NEUTROPHIL # 3.9 TH/MM3 (1.8-7.7); BASOPHIL % 0.9 % (0.0-2.0); EOSINOPHIL # 0.1 TH/MM3 (0-0.4); HEMATOCRIT 34.2 % (35.0-46.0); HEMOGLOBIN 11.7 GM/DL (11.6-15.3); LYMPH % 12.5 % (9.0-44.0); LYMPHOCYTE # 0.7 TH/MM3 (1.0-4.8); MEAN CELL VOLUME 96.8 FL (80.0-100.0); MEAN CORPUSCULAR HEMOGLOBIN 33.2 PG (27.0-34.0); MEAN CORPUSCULAR HGB CONC 34.3 % (32.0-36.0); MEAN PLATELET VOLUME 8.1 FL (7.0-11.0); MONO % 13.9 % (0.0-8.0); MONOCYTE # 0.8 TH/MM3 (0-0.9); NEUT % 71.7 % (16.0-70.0); PLATELET COUNT 115 TH/MM3 (150-450); RED BLOOD COUNT 3.54 MIL/MM3 (4.00-5.30); RED CELL DISTRIBUTION WIDTH 15.4 % (11.6-17.2); WHITE BLOOD COUNT 5.4 TH/MM3 (4.0-11.0)
[2017-06-03 14:41] LABS: INTERNATIONAL NORMALIZED RATIO 1.2 RATIO; PROTHROMBIN TIME - PATIENT 12.4 SEC (9.8-11.6)
[2017-06-03 14:58] LABS: TOTAL PROTEIN 6.9 GM/DL (6.4-8.2)
[2017-06-03 15:30] VITALS: BP 149/99; PULSE 79; RESP 20; TEMP 97.7; O2SAT 95
[2017-06-03] MEDS ORDERED: HEPARIN SODIUM - IV 10,000 UNITS/10 ML VIAL OTHER ONE (15:45)
--- NOTE | 2017-06-03 16:16 | MR ---
cc: Gilberto Sheets MD 06/03/2017 PROCEDURE: Left thoracentesis. PREOPERATIVE DIAGNOSIS: Left pleural effusion. PROCEDURE NOTE: Informed consent was obtained from the patient. The procedure and the complications including the complication of anesthesia, pneumothorax requiring chest tube, injury to blood vessels, lungs, nausea, arrhythmia, hypoxia, pneumothorax requiring chest tube were explained. She consented for the procedure. The left side of the chest was marked with US. Chest was cleaned with ChloraPrep and 1% lidocaine. Infiltration anesthesia was used with 16 gauge Angio-cath. Thoracentesis was done and hemorrhagic fluid was obtained .It was hooked up to a vacuum bottle. 450 mL was removed then fluid stopped coming and the procedure was terminated. She tolerated the procedure well. Pleural fluid is sent for protein, glucose, LDH, cell count and differential, routine culture, AFB fungal culture and cytology. Postprocedure, successful removal of fluid, rule out pneumothorax. Gilberto Sheets MD ADA/DL/rr , 03:20 PM , 03:35 PM [facility]
--- NOTE | 2017-06-03 16:24 | RADRPT ---
EXAM DATE/TIME: 06/03/2017 15:26 [facility] COMPARISON: No previous studies available for comparison. INDICATIONS : Post left thoracentesis. MEDICAL HISTORY : Hypertension. Thyroid disease. SURGICAL HISTORY : None. ENCOUNTER: Initial ACUITY: 1 day PAIN SCORE: 0/10 LOCATION: Bilateral chest FINDINGS: The exam demonstrates a small left effusion with consolidation of the left lower lobe. There is no pn eumothorax. The right lung is clear. The heart is mildly enlarged. The osseous structures demonstrate degenerative changes but are grossly intact. CONCLUSION: 1. No pneumothorax identified following left thoracentesis. 2. Continued atelectasis and consolidation of the left lung base. Gonzalez Martinez MD on June 03, 2017 at 16:22 Board Certified Radiologist. This report was verified electronically.
[2017-06-03 16:46] LABS: TOTAL PROTEIN,PLEURAL FLUID 3.4 GM/DL
[2017-06-03 20:36] LABS: PLEURAL FLUID HISTIOCYTES 9 %; PLEURAL FLUID LYMPHS 53 %; PLEURAL FLUID MESOTHELIAL 1 %; PLEURAL FLUID MONOS 4 %; PLEURAL FLUID POLYS (SEGS) 33 %
[2017-06-03 20:40] LABS: PLEURAL FLUID RBC 18739 /MM3 (0-0); PLEURAL FLUID WBC 870 /MM3 (0-10)
--- NOTE | 2017-06-04 08:16 | MH ---
cc: Gilberto Sheets MD DATE OF ADMISSION: 06/03/2017 CHIEF COMPLAINT: The patient will come for left thoracentesis on 06/03/2017. HISTORY OF PRESENT ILLNESS: Ms. Tejada is a pleasant 86-year-old female with history CHF, atrial fibrillation, shortness of breath which is getting worse. She had a chest x-ray done which shows moderate size left pleural effusion, small right pleural effusion. She has no cough or sputum production, no fever, chills, no night sweats, no chest pain. PAST MEDICAL HISTORY: History of atrial fibrillation, hypertension, essential, familial tremors, history of bladder implant. MEDICATIONS She takes Xarelto 20 mg a day, aspirin 81 mg a day, primidone 250 mg a day, diltiazem 240 mg a day, metoprolol 100 mg, Lasix 40 mg a day, pravastatin 40 mg a day, potassium 20 mEq a day, amiodarone 200 mg a day, levothyroxine once a day. ALLERGIES: SHE IS ALLERGIC TO SIMVASTATIN. SOCIAL HISTORY: She has no history of smoking. She used to drink rarely which she quit. 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 She is a , lives alone. She has 5 children. One has drug problem. She has 3 brothers, 2 . Has 3 sisters, all . REVIEW OF SYSTEMS: Feels weak, mild shortness of breath, no bleeding from any site, no seizure, stroke or epilepsy, has lost some weight. PHYSICAL EXAMINATION: GENERAL: A frail elderly female, not in acute distress. VITAL SIGNS: Blood pressure 144/80, heart rate 79, respirations 18, weight 163, pulse ox saturation 97%. HEENT: Pupils equal and reactive to light. Oral mucosa, nasal mucosa normal. NECK: Supple. JVP not raised. CHEST: Dull to percussion, decreased breath sounds at the left base. CARDIOVASCULAR: S1, S2 normal. ABDOMEN: Benign. EXTREMITIES: No edema. IMPRESSION: 1. Moderate size left pleural effusion. 2. Congestive heart failure. 3. Atrial fibrillation 4. Dyspnea. 5. Hypertension. 6. Tremors. 7. Status post bladder implant. PLAN: She will need thoracentesis. I explained to her the procedure and the complications including complications of anesthesia, pneumothorax, possible chest tube placement, injury to blood vessles, nerves, arrthmias, hypoxia. She will have to hold her Xarelto for 3 days and while she is off Xarelto she will be at increased risk of thromboembolic events and stroke which she understands well. She will be scheduled for thoracentesis at [facility] for 06/03/2017. Follow up in 2 weeks. Gilberto Sheets MD ADA/rt , 10:18 PM , 11:23 PM [facility]
[2017-06-05 14:33] LABS: AMYLASE BODY FLUID 30 U/L; AMYLASE BODY FLUID TYPE PLEURAL
== END 2017-06-03 16:49 | disposition home or self-care (01) ==
LOC: HRAD 13:13 → HRIP 13:19 → HRAD 16:49
PROVIDERS: ATTEND Specialist
DX: J90 Pleural effusion, not elsewhere classified (principal); Z79.01 Long term (current) use of anticoagulants; Z79.899 Other long term (current) drug therapy; I10 Essential (primary) hypertension; E07.9 Disorder of thyroid, unspecified; I50.9 Heart failure, unspecified; I48.91 Unspecified atrial fibrillation; R06.02 Shortness of breath; J98.11 Atelectasis
CPT/HCPCS: 32554; 71045; 76604; 82150; 82945; 82947; 83615; 83986; 84155; 84157; 85025; 85610; 85730; 87015; 87070; 87102; 87116; 87205; 87206; 88112; 88305; 89051; J1644

== ENCOUNTER 2017-09-26 12:13 | Observation (INO) ==
[2017-09-26] MEDS ORDERED: Iohexol 300 MG/ML 100 ML Vial (for Rad CT) IVCONTRAST ONE (12:14)
[2017-09-26] MEDS ORDERED: Sod Chloride 0.9% Inj 1,000 ML IV.SIG ONE (18:25)
--- NOTE | 2017-09-26 19:10 | ED ---
HPI General Chief complaint: Medical Clearance Stated complaint: possible fluid in stomach Time Seen by Provider: 09/26/17 18:14 Source: patient Mode of arrival: ambulatory Limitations: no limitations History of Present Illness HPI narrative: 36-year-old female presents to the emergency department for evaluation of swelling of the upper abdomen and chest that is been present for a couple of weeks. She says that she had a CT abdomen pelvis performed Saturday with Dr. Barriga, her primary care physician. She does not know the results of this. Says that she was here in April and had a thoracentesis because of edema in the chest and abdomen. She says that she believes this started after taking her "water pill". She says she started bloating afterwards. She denies fever, chills, chest pain, shortness of breath, abdominal pain. She says she has been urinating and has normal bowel movements. Says she does have a bladder device implanted and this helps her control her bladder. This was 6 years ago that this was implanted. Related Data Home Medications Medication Instructions Recorded Confirmed amiodarone 200 mg PO DAILY 09/26/17 09/26/17 apixaban [Eliquis] 5 mg PO BID 09/26/17 09/26/17 ascorbic acid (vitamin C) [Vitamin 500 mg PO DAILY 09/26/17 09/26/17 C] aspirin [Aspirin Low Dose] 81 mg PO DAILY 09/26/17 09/26/17 calcium citrate-vitamin D3 1 tab PO QAM 09/26/17 09/26/17 [Citracal + D Maximum] furosemide [Lasix] 40 mg PO BID 09/26/17 09/26/17 levothyroxine 200 mcg PO DAILY 09/26/17 09/26/17 metoprolol succinate 50 mg PO AC DINNER 09/26/17 09/26/17 metoprolol succinate 100 mg PO DAILY 09/26/17 09/26/17 multivitamin 1 tab PO DAILY 09/26/17 09/26/17 polyvinyl alcohol [Artificial 1 drop EACH EYE BID 09/26/17 09/26/17 Tears (polyvin alc)] potassium chloride 10 meq PO DAILY 09/26/17 09/26/17 pravastatin 40 mg PO DAILY 09/26/17 09/26/17 primidone 125 mg PO Q12H 09/26/17 09/26/17 Allergies Allergy/AdvReac Type Severity Reaction Status Date / Time simvastatin Allergy Unknown Rash Verified 09/26/17 12:30 Review of Systems Except as stated in HPI: all other systems reviewed are negative FOR[facility]LY [facility] Medical History Medical History COPD (chronic obstructive pulmonary disease) (Acute) Hypertension (Acute) Surgical History Surgical History Hx of tonsillectomy (Acute) Social History Social History Substance History: No History of Abuse Second Hand Smoke Exposure: Yes Smoking Status: Never smoker How Often Do You Have a Drink Containing Alcohol: Never Recent Travel in [facility] within the Last 8 Weeks: No Recent Out of Country Travel within the Last 8 Weeks: No Immunization History Tetanus Immunization: >5 Years Hx Influenza Vaccine This Season: Yes Exam Narrative Exam Narrative: GENERAL: WD, WN in NAD, resting tremor present SKIN: Focused skin assessment warm/dry. HEAD: Atraumatic. Normocephalic. EYES: Pupils equal and round. No scleral icterus. No injection or drainage. ENT: No nasal bleeding or discharge. Mucous membranes pink and moist. NECK: Trachea midline. No JVD. CARDIOVASCULAR: Regular rate and rhythm. No murmur appreciated. RESPIRATORY: No accessory muscle use. Clear to auscultation. Breath sounds equal bilaterally. GASTROINTESTINAL: Abdomen soft, non-tender, somewhat distended in the upper abdominal region without rebound tenderness. Hepatic and splenic margins not palpable. MUSCULOSKELETAL: No obvious deformities. No clubbing. No cyanosis. No edema. Homans sign negative bilaterally NEUROLOGICAL: Awake and alert. No obvious cranial nerve deficits. Motor grossly within normal limits. Normal speech. PSYCHIATRIC: Appropriate mood and affect; insight and judgment normal. Course Initial Documented Vital Signs Temperature 98.0 F 09/26/17 12:24 Pulse Rate 84 09/26/17 12:24 Respiratory Rate 18 09/26/17 12:24 Blood Pressure 143/96 H 09/26/17 12:24 Pulse Oximetry 94 L 09/26/17 12:24 Last Documented Vital Signs Temperature 98.3 F 09/27/17 02:55 Pulse Rate 96 H 09/27/17 02:55 Respiratory Rate 16 09/27/17 02:55 Blood Pressure 133/78 09/27/17 02:55 Pulse Oximetry 94 L 09/27/17 02:55 Medical Decision Making MARTHA Attestation MARTHA supervised visit: Yes Attestation: I, Dr. Gonzales, have reviewed the advance practice practitioner's documentation and am in agreement, met with the patient face to face, made the diagnosis, and the medical decision making was done by me. *My assessment and Findings: The patient has pericardial effusion pleural effusion and ascites. She has shortness of breath. Admission with a plan for evaluation by Dr. Sheets pulmonology and/or interventional radiology if necessary for pericardial effusion drainage. Dr. Sheets has performed thoracentesis previously. Patient is hemodynamically stable despite the presence of pericardial effusion. Case discussed with Dr. Flores. [facility] Narrative Medical decision making narrative: 86-year-old female presents emergency department for evaluation of upper abdominal swelling that is been present for a couple of weeks. Primary care physician who ordered a CT abdomen pelvis. Patient comes in today because the swelling has increased. She denies fever, chills, nausea, vomiting, diarrhea, abdominal pain. She believes that she needs to have fluid removed as she required this earlier this year. Denies history of cancer. Her vital signs are stable. Her labs are significant for an elevated alkaline phosphatase. Review the CT of the abdomen and pelvis from just a couple of days ago. There is concern for pericardial effusion and ascites. There are also small pleural effusions. I discussed this case my attending who recommended a CT abdomen pelvis for further evaluation. Please see his note for further information and disposition. Lab Data Lab results reviewed: Yes I reviewed the patient's lab results. Result diagrams: 09/26/17 18:40 09/26/17 18:40 Lab Results 09/26/17 09/26/17 09/26/17 Range/Units 18:40 18:40 18:40 WBC 4.3 (4.0-11.0) th/mm3 RBC 3.90 L (4.00-5.30) mil/mm3 Hgb 12.2 (11.6-15.3) gm/dL Hct 36.7 (35.0-46.0) % MCV 94.1 (80.0-100.0) fL MCH 31.2 (27.0-34.0) pg MCHC 33.2 (32.0-36.0) % RDW 15.3 (11.6-17.2) % Plt Count 184 (150-450) th/mm3 MPV 7.8 (7.0-11.0) fL Neut % (Auto) 63.5 (16.0-70.0) % Lymph % (Auto) 18.1 (9.0-44.0) % [place] % (Auto) 13.2 H (0.0-8.0) % Eos % (Auto) 4.3 H (0.0-4.0) % Baso % (Auto) 0.9 (0.0-2.0) % Neut # (Auto) 2.7 (1.8-7.7) th/mm3 Lymph # (Auto) 0.8 L (1.0-4.8) th/mm3 [place] # (Auto) 0.6 (0.0-0.9) th/mm3 Eos # (Auto) 0.2 (0.0-0.4) th/mm3 Baso # (Auto) 0.0 (0.0-0.2) th/mm3 WBC Differential . Differential Comment Auto diff final PT 12.7 H (9.8-11.6) sec INR 1.3 Ratio APTT 28.7 (24.3-30.1) sec Sodium 132 L (136-145) meq/L Potassium 5.0 (3.5-5.1) meq/L Chloride 94 L (98-107) meq/L Carbon Dioxide 29.6 (21.0-32.0) meq/L Anion Gap 8 (5-15) meq/L BUN 10 (7-18) mg/dL Creatinine 0.87 (0.50-1.00) mg/dL Estimated GFR 62 L (>89) mL/min Random Glucose 88 (74-106) mg/dL Calcium 9.7 (8.5-10.1) mg/dL Total Bilirubin 0.5 (0.2-1.0) mg/dL AST 35 (15-37) U/L ALT 21 (10-53) U/L Alkaline Phosphatase 313 H (45-117) U/L B-Natriuretic Peptide (0-100) pg/mL Total Protein 7.5 (6.4-8.2) g/dL Albumin 4.0 (3.4-5.0) g/dL Lipase 196 (73-393) U/L 09/26/17 Range/Units 18:40 WBC (4.0-11.0) th/mm3 RBC (4.00-5.30) mil/mm3 Hgb (11.6-15.3) gm/dL Hct (35.0-46.0) % MCV (80.0-100.0) fL MCH (27.0-34.0) pg MCHC (32.0-36.0) % RDW (11.6-17.2) % Plt Count (150-450) th/mm3 MPV (7.0-11.0) fL Neut % (Auto) (16.0-70.0) % Lymph % (Auto) (9.0-44.0) % [place] % (Auto) (0.0-8.0) % Eos % (Auto) (0.0-4.0) % Baso % (Auto) (0.0-2.0) % Neut # (Auto) (1.8-7.7) th/mm3 Lymph # (Auto) (1.0-4.8) th/mm3 [place] # (Auto) (0.0-0.9) th/mm3 Eos # (Auto) (0.0-0.4) th/mm3 Baso # (Auto) (0.0-0.2) th/mm3 WBC Differential Differential Comment PT (9.8-11.6) sec INR Ratio APTT (24.3-30.1) sec Sodium (136-145) meq/L Potassium (3.5-5.1) meq/L Chloride (98-107) meq/L Carbon Dioxide (21.0-32.0) meq/L Anion Gap (5-15) meq/L BUN (7-18) mg/dL Creatinine (0.50-1.00) mg/dL Estimated GFR (>89) mL/min Random Glucose (74-106) mg/dL Calcium (8.5-10.1) mg/dL Total Bilirubin (0.2-1.0) mg/dL AST (15-37) U/L ALT (10-53) U/L Alkaline Phosphatase (45-117) U/L B-Natriuretic Peptide 236 H (0-100) pg/mL Total Protein (6.4-8.2) g/dL Albumin (3.4-5.0) g/dL Lipase (73-393) U/L Imaging Data Attestation: I personally reviewed and interpreted this imaging study as follows : Radiologist's impression: ITS Impressions Abdomen/Pelvis CT 09/26/17 20:07 CONCLUSION: 1. Persistent moderate ascites and body wall edema/anasarca, nonspecific but potentially cardiac in origin. 2. Pleural and pericardial effusions and panchamber enlargement of the heart again noted. 3. No obstruction or acute inflammatory changes are demonstrated. Discharge Plan Discharge Disposition Patient Disposition: 30 Still Patient Physicians Team ED Provider: Gonzalez Gonzales ED Midlevel Provider: Elvia Black Primary Care Provider: Aguilar Barriga Attending Provider: Delvin Flores Other Providers: Dennis Fitzgerald Status ED Status: Admitted Observation Patient
[2017-09-26 19:15] LABS: Baso % (Auto) 0.9 % (0.0-2.0); Eos # (Auto) 0.2 th/mm3 (0.0-0.4); Eos % (Auto) 4.3 % (0.0-4.0); Hematocrit 36.7 % (35.0-46.0); Hemoglobin 12.2 gm/dL (11.6-15.3); Lymph # (Auto) 0.8 th/mm3 (1.0-4.8); Lymph % (Auto) 18.1 % (9.0-44.0); Mean Corpuscular HGB Conc 33.2 % (32.0-36.0); Mean Corpuscular Hemoglobin 31.2 pg (27.0-34.0); Mean Corpuscular Volume 94.1 fL (80.0-100.0); Mean Platelet Volume 7.8 fL (7.0-11.0); Mono # (Auto) 0.6 th/mm3 (0.0-0.9); Mono % (Auto) 13.2 % (0.0-8.0); Neut # (Auto) 2.7 th/mm3 (1.8-7.7); Neut % (Auto) 63.5 % (16.0-70.0); Platelet Count 184 th/mm3 (150-450); Red Cell Distribution Width 15.3 % (11.6-17.2); White Blood Count 4.3 th/mm3 (4.0-11.0)
[2017-09-26 19:27] LABS: Activated Partial Thrombo Time 28.7 sec (24.3-30.1); INR 1.3 Ratio; Prothrombin Time 12.7 sec (9.8-11.6)
[2017-09-26 19:41] LABS: Anion Gap 8 meq/L (5-15); Aspartate Aminotransferase 35 U/L (15-37); Blood Urea Nitrogen 10 mg/dL (7-18); Calcium 9.7 mg/dL (8.5-10.1); Carbon Dioxide 29.6 meq/L (21.0-32.0); Chloride 94 meq/L (98-107); Glomerular Filtration Rate 62 mL/min (>89); Glucose,Random 88 mg/dL (74-106); Lipase 196 U/L (73-393); Sodium 132 meq/L (136-145)
[2017-09-26 19:42] LABS: Alanine Aminotransferase 21 U/L (10-53)
[2017-09-26 19:44] LABS: Alkaline Phosphatase 313 U/L (45-117); Total Protein 7.5 g/dL (6.4-8.2)
[2017-09-26] MEDS ORDERED: Diatrizoate Meglum/Diatrizoate Sod Liq 9 ML UDC PO ONE (21:00)
--- NOTE | 2017-09-26 21:48 | ECG ---
Date Performed: 09/26/2017 Time Performed: 18:54:25 PTAGE: 86 years EKG: Baseline artifact present Artifact prevents accurate interpretation of baseline rhythm. POS SIBLE ANTERIOR MYOCARDIAL INFARCTION ABNORMAL RHYTHM ECG Compared to prior electrocardiogram, I canno t compare rhythm because of artifact. I see no other definite changes. PREVIOUS TRACING : 07/24/2016 06.36 DOCTOR: Santana Armas Interpretating Date/Time 09/26/2017 21:48:06
--- NOTE | 2017-09-26 23:08 | CT ---
EXAM DATE: 09/26/2017 10:56 PM EDT AGE/SEX: 86 years / Female INDICATIONS: Abdominal pain, distention. CLINICAL DATA: This is the patient's initial encounter. Patient reports that signs and symptoms have been present for 1 day and indicates a pain score of 5/10. MEDICAL/SURGICAL HISTORY: Chronic obstructive pulmonary disease. Hypertension. Tonsillectomy. ORAL CONTRAST: Prescribed oral contrast ingested. RADIATION DOSE: 13.61 CTDI (mGy) COMPARISON: POI, CT ABDOMEN W AND W/O CONTRAST, 09/20/2017. . TECHNIQUE: Multiple contiguous axial images were obtained through the abdomen and pelvis following b olus infusion of 80 ml Omnipaque 350 (iohexol) nonionic water-soluble contrast as a single exam dos e. Prescribed oral contrast ingested. Using automated exposure control and adjustment of the mA and/ or kV according to patient size, radiation dose was kept as low as reasonably achievable to obtain op timal diagnostic quality images. DICOM format image data is available electronically for review and comparison. FINDINGS: Decreased attenuation liver again noted. Spleen, pancreas and adrenal glands are within normal limits . Bilateral renal cysts are again seen. There are prominent bilateral extrarenal pelves but no defini te abhilash hydronephrosis. No obstruction or acute inflammatory changes seen of the gastrointestinal tract. No free air seen. Moderate ascites again noted, not significantly changed in volume. Small bilateral pleural effusions, large pericardial effusion and panchamber enlargement of the heart again noted. There is coronary ar radha calcification. There is body wall edema and anasarca. Scattered calcified uterine fibroids again seen. CONCLUSION: 1. Persistent moderate ascites and body wall edema/anasarca, nonspecific but potentially cardiac in origin. 2. Pleural and pericardial effusions and panchamber enlargement of the heart again noted. 3. No obstruction or acute inflammatory changes are demonstrated. Electronically signed by: pJ Gregory MD 09/26/2017 11:06 PM EDT
[2017-09-27] MEDS ORDERED: Temazepam 15 MG Capsule PO PRN (00:40)
[2017-09-27] MEDS ORDERED: Bisacodyl 10 MG Supp RECTAL PRN (00:40)
[2017-09-27] MEDS: Calcium/Vitamin D 250/125 MG Tablet PO SCH (05:30)
--- NOTE | 2017-09-27 11:28 | MB ---
cc: Dennis Fitzgerald MD DATE: 09/27/2017 REASON FOR CONSULTATION: Pericardial effusion. HISTORY OF PRESENT ILLNESS: The patient is an 86-year-old white female with a history of paroxysmal atrial fibrillation, apparently status post ablation sometime last year, history of hypertension and hyperlipidemia, who was sent to the hospital due to a moderate to large-sized pericardial effusion seen on recent echo and abdominal CT, as well as due to symptoms of increased shortness of breath and pedal edema. The patient states in the last few days she has had increased dyspnea with minimal exertion. She has chronic pedal edema which has also worsened over the last few weeks. She denies orthopnea, paroxysmal nocturnal dyspnea, chest pain, palpitations, lightheadedness, syncope, near-syncope, fevers, flu symptoms. PAST MEDICAL HISTORY: As above. No other details currently available. CARDIAC MEDICATIONS AT HOME: 1. Amiodarone 200 mg daily. 2. Eliquis 5 mg daily. 3. Aspirin 81 mg daily. 4. Metoprolol succinate 150 mg daily. 5. Furosemide 40 mg twice daily. 6. Pravastatin 40 mg daily. 7. Potassium chloride 10 mEq daily. ALLERGIES: SIMVASTATIN. FAMILY HISTORY: Noncontributory. SOCIAL HISTORY: The patient denies alcohol or tobacco abuse. REVIEW OF SYSTEMS: As in the History of Present Illness, otherwise negative or noncontributory. She also denies headache, abdominal pain, melena, dyspepsia, bright red blood per rectum. PHYSICAL EXAMINATION: VITAL SIGNS: Her blood pressure 134/82 with a pulse of 92, respirations 18. GENERAL: She is a well-developed, well-nourished white female, in no acute distress. HEENT/NECK: Jugular venous pressure is seen to the mandible. Carotid pulses are 2+ bilaterally and without bruits. CHEST: Reveals clear lungs rodriguez. CARDIAC: She has an irregularly irregular rhythm with a grade 1-2/6 systolic murmur heard at the right upper sternal border, as well as a grade 1-2/6 systolic murmur heard at the apex. The S2 heart sound is normal. No gallop is audible. ABDOMEN: She has a soft, nontender abdomen. Bowel sounds are present. There is no definite hepatosplenomegaly. EXTREMITIES: Reveals no clubbing or cyanosis. There is 2-3+ pretibial edema bilaterally. LABORATORY DATA: Potassium 5.0, BUN 10, creatinine 0.87. Brain natriuretic peptide level 236. WBC 4.3, hemoglobin 12.2, platelets 184. INR 1.3. EKG shows atrial fibrillation, borderline poor R-wave progression, low QRS voltage in the limb leads, diffuse nonspecific T-wave abnormality. IMPRESSION: Moderate to large-sized pericardial effusion demonstrated by recent echo and abdominal CT, increased pedal edema, severe tricuspid regurgitation in this 86-year-old white female with a history of paroxysmal atrial fibrillation, apparently status post cardioversion and ablation sometime last year, history of hypertension, hyperlipidemia. Although there was no echocardiographic evidence for pericardial tamponade, clinically the patient has deteriorated recently. She also has elevated jugular venous pressure on exam, although some of this jugular venous distention is likely due to tricuspid regurgitation. She did have a pericardial effusion on echocardiogram a year ago, but the size reportedly was small. Overall, in light of her increased symptomatology, I have recommended she undergo CT guided pericardiocentesis. With respect to her severe tricuspid regurgitation also demonstrated on a recent echo, would recommend conservative medical therapy. With respect to her atrial fibrillation, it appears mostly chronic based on EKG's in Dr. Cobian's office. RECOMMENDATIONS: 1. Interventional Radiology consultation for CT-guided pericardiocentesis today. 2. After pericardiocentesis, I recommend intravenous diuretic therapy to help mobilize her pedal edema and ascites. 3. After her pericardiocentesis, resume Eliquis. MD DAWIT Boggs/KIRILL , 11:08 AM , 11:27 AM SILVER
[2017-09-27 12:22] LABS: Bilirubin,Urine Negative (Negative); Clarity,Urine Cloudy (Clear); Color,Urine Yellow (Yellw/Straw); Glucose,Urine (UA) Negative (Negative); Nitrite,Urine Negative (Negative); Specific Gravity,Urine 1.019 (1.002-1.035)
[2017-09-27 12:23] LABS: Leukocyte Esterase,Urine Large (Negative); Mucus,Urine Few /lpf (Occasional); Squamous Epithelial Cell,Urine 1 /hpf (0-5)
--- NOTE | 2017-09-27 16:29 | ECHRPT ---
Indication: HEART FAILURE CONCLUSIONS Normal left ventricular size. Wall thickness is normal. The left ventricular systolic function is low normal with an estimated ejection fraction in the rang e of 50- 55%. The left atrial size is mrgavsim-ra-ifflmldl dilated. The right atrial size is severely dilated. No atrial level shunt is demonstrated by color flow Doppler interrogation. Jarh-od-lvngafwo mitral valve regurgitation. Aortic valve sclerosis is present. No aortic valve regurgitation. No aortic valve stenosis. There is severe tricuspid valve regurgitation. The estimated pulmonary arterial pressure is 50.4 mmHg. Mild to moderate pulmonary valve regurgitation. A left sided pleural effusion is present. A moderate left sided pleural effusion is noted. There is a tgtym-uu-chpyxwxn sized posterior, partially loculated pericardial effusion present. No hemodynamically significant echocardiographic features were observed (no pre-tamponade physiology). BP: / HR: Rhythm: Sinus MEASUREMENTS (Male / Female) Normal Values Technical Quality:Fair 2D ECHO LV Diastolic Diameter PLAX 3.6 cm 4.2 - 5.9 / 3.9 - 5.3 cm LV Systolic Diameter PLAX 2.9 cm IVS Diastolic Thickness 1.0 cm 0.6 - 1.0 / 0.6 - 0.9 cm LVPW Diastolic Thickness 1.0 cm 0.6 - 1.0 / 0.6 - 0.9 cm LV Relative Wall Thickness 0.5 RV Internal Dim ED PLAX 3.3 cm LVOT Diameter 2.1 cm Aortic Root Diameter 3.2 cm LA Systolic Diameter LX 4.0 cm 3.0 - 4.0 / 2.7 - 3.8 cm M-MODE AV Cusp Separation MM 1.1 cm DOPPLER AV Peak Velocity 176.5 cm/s AV Peak Gradient 12.5 mmHg AV Mean Gradient 6.5 mmHg AV Velocity Time Integral 31.5 cm LVOT Peak Velocity 106.1 cm/s LVOT Peak Gradient 4.5 mmHg LVOT Velocity Time Integral 17.5 cm AV Area Cont Eq vti 1.9 cm AV Area Cont Eq pk 2.1 cm Mitral E Point Velocity 119.5 cm/s LV E' Lateral Velocity 4.3 cm/s Mitral E to LV E' Lateral Ratio 27.9 LV E' Septal Velocity 3.0 cm/s Mitral E to LV E' Septal Ratio 39.6 TR Peak Velocity 318.0 cm/s TR Peak Gradient 40.4 mmHg Right Atrial Pressure 10.0 mmHg Pulmonary Artery Systolic Pressu 50.4 mmHg Right Ventricular Systolic Press 50.4 mmHg PV Peak Velocity 47.8 cm/s PV Peak Gradient 0.9 mmHg FINDINGS LEFT VENTRICLE Normal left ventricular size. Wall thickness is normal. The left ventricular systolic function is low normal with an estimated ejection fraction in the rang e of 50- 55%. RIGHT VENTRICLE Normal right ventricular size and systolic function. LEFT ATRIUM The left atrial size is rpzuwzab-lm-ewkjvaug dilated. RIGHT ATRIUM The right atrial size is severely dilated. ATRIAL SEPTUM No atrial level shunt is demonstrated by color flow Doppler interrogation. AORTA The aortic root and proximal ascending aorta are normal in size on limited imaging. MITRAL VALVE Wvia-bp-lsqovkhz mitral valve regurgitation. AORTIC VALVE Aortic valve sclerosis is present. No aortic valve regurgitation. No aortic valve stenosis. TRICUSPID VALVE There is severe tricuspid valve regurgitation. The estimated pulmonary arterial pressure is 50.4 mmHg. PULMONARY VALVE Mild to moderate pulmonary valve regurgitation. VESSELS The inferior vena cava is normal in size. PERICARDIUM A left sided pleural effusion is present. A moderate left sided pleural effusion is noted. There is a arrmn-hb-dfnyhpuj sized posterior, partially loculated pericardial effusion present. No hemodynamically significant echocardiographic features were observed (no pre-tamponade physiology). Tripp Ruiz MD, FACC (Electronically Signed) Final Date:27 September 2017 16:27
--- NOTE | 2017-09-27 16:32 | P.HPIM ---
History of Present Illness Primary Care Physician: Aguilar Barriga MD Chief Complaint: Sent for shortness of breath and pericardial effusion/pleural effusion History of Present Illness: 86-year-old female with a medical history significant for hypertension, paroxysmal A. fib, hyperlipidemia sent to the hospital for worsening shortness of breath, lower extremity edema. Patient was found to have a large pericardial effusion on a recent echocardiogram and abdominal CT. She reports increasing dyspnea with minimal exertion. She reports abdominal bloating. The patient currently denies chest pain. No nausea or vomiting. She states she is okay as long as she does not move much. - Diagnosis (1) Pericardial effusion (2) Pleural effusion (3) Ascites (4) Paroxysmal A-fib (5) Tricuspid regurgitation Inpatient Certification: I certify that the inpatient services were ordered in accordance with Medicare regulations governing the order. This includes certification that hospital inpatient services are reasonable and necessary and in the case of services not specified as inpatient-only under 42 CFR 419.22(n), that they are appropriately provided as inpatient services in accordance to with the 2-midnight benchmark under 43 CFR 412.3(e) Review of Systems All other systems reviewed negative except as stated in HPI PMFSH - History History Provided By: Patient - Medical History Medical History: Medical History (Last Updated 09/27/17 @ 17:02 by Deborah Shultz MD) COPD (chronic obstructive pulmonary disease) Hypertension Paroxysmal A-fib Pericardial effusion without cardiac tamponade Pleural effusion - Surgical History Surgical History: Surgical History (Last Reviewed 09/27/17 @ 17:02 by Deborah Shultz MD) Hx of tonsillectomy - Tobacco History Second Hand Smoke Exposure: Yes Tobacco Use In Past 30 Days: No Smoking Status: Never smoker - Alcohol History How Often Do You Have a Drink Containing Alcohol: Never - Substance Use History Substance History: No History of Abuse - Travel History Recent Travel in the [place] Within the Last 8 Weeks: No Recent Travel Out of the Country Within the Last 8 Weeks: No - Immunization History Tetanus Immunization: >5 Years Hx Influenza Vaccine This Season: Yes Medications and Allergies Active Medications: Active Medications Al Hydroxide/Mg Hydroxide (Milk Of Magnesia Liq) 30 ml PO Q12H PRN PRN Reason: Mild Constipation Bisacodyl (Dulcolax Supp) 10 mg RECTAL DAILY PRN PRN Reason: SEVERE CONSITIPATION Lactulose (Lactulose Liq) 30 ml PO DAILY PRN PRN Reason: SEVERE CONSITIPATION Sennosides (Senokot) 17.2 mg PO Q12H PRN PRN Reason: Moderate Constipation Sodium Chloride (Ns Flush) 2 ml IV.FLUSH PRN PRN PRN Reason: FLUSH AFTER USING IV ACCESS Temazepam (Restoril) 15 mg PO HS PRN PRN Reason: INSOMNIA Allergies Allergy/AdvReac Type Severity Reaction Status Date / Time simvastatin Allergy Unknown Rash Verified 09/26/17 12:30 Home Medications Medication Instructions Recorded Confirmed Type amiodarone 200 mg PO DAILY 09/26/17 09/26/17 History apixaban [Eliquis] 5 mg PO BID 09/26/17 09/26/17 History ascorbic acid (vitamin C) [Vitamin 500 mg PO DAILY 09/26/17 09/26/17 History C] aspirin [Aspirin Low Dose] 81 mg PO DAILY 09/26/17 09/26/17 History calcium citrate-vitamin D3 1 tab PO QAM 09/26/17 09/26/17 History [Citracal + D Maximum] furosemide [Lasix] 40 mg PO BID 09/26/17 09/26/17 History levothyroxine 200 mcg PO DAILY 09/26/17 09/26/17 History metoprolol succinate 50 mg PO AC DINNER 09/26/17 09/26/17 History metoprolol succinate 100 mg PO DAILY 09/26/17 09/26/17 History multivitamin 1 tab PO DAILY 09/26/17 09/26/17 History polyvinyl alcohol [Artificial 1 drop EACH EYE BID 09/26/17 09/26/17 History Tears (polyvin alc)] potassium chloride 10 meq PO DAILY 09/26/17 09/26/17 History pravastatin 40 mg PO DAILY 09/26/17 09/26/17 History primidone 125 mg PO Q12H 09/26/17 09/26/17 History Exam Vital signs: Vital Signs 09/26/17 17:29 09/26/17 17:57 09/26/17 18:52 Temperature 97.5 F L 97.6 F Pulse Rate 73 72 87 Respiratory Rate 22 22 Blood Pressure 142/95 H 142/95 H Pulse Oximetry 97 97 09/26/17 20:01 09/26/17 20:02 09/26/17 20:03 Temperature Pulse Rate 88 79 Respiratory Rate 18 Blood Pressure 153/96 H Pulse Oximetry 95 95 09/27/17 00:30 09/27/17 00:52 09/27/17 02:55 Temperature 98.3 F Pulse Rate 76 96 H Respiratory Rate 18 16 Blood Pressure 144/72 H 133/78 Pulse Oximetry 99 94 L 94 L 09/27/17 08:00 09/27/17 09:00 09/27/17 09:02 Temperature 97.6 F Pulse Rate 70 92 H Respiratory Rate 18 Blood Pressure 134/82 Pulse Oximetry 94 L 94 L 09/27/17 11:27 09/27/17 16:06 Temperature 98.3 F 98 F Pulse Rate 87 95 H Respiratory Rate 18 16 Blood Pressure 143/81 H 131/78 Pulse Oximetry 96 95 Intake & Output 09/26/17 09/27/17 09/27/17 18:59 06:59 18:59 Intake Total 1000 / 1000 Balance 1000 / 1000 Weight 76.657 kg 77 kg Intake: IV 1000 / 1000 NS Inj 1,000 ML @ Wide Open IV. 1000 / 1000 SIG BOLUS ONE Rx#:[id number] Other: # Voids 1 Weight On Admission 76.657 kg Narrative: GENERAL: Elderly female in no acute distress at rest. CARDIOVASCULAR: JVD present. Normal rate, irregular rhythm. 2 out of 6 LINDA best heard over the right upper sternal border RESPIRATORY: Good respiratory efforts. Breath sounds equal and clear to auscultation bilaterally. GASTROINTESTINAL: Abdomen soft, non-tender, non-distended. Normal active bowel sounds MUSCULOSKELETAL: 2+ bilateral lower extremity pitting edema NEURO: Alert & Oriented x4 to person, place, time, situation. Moves all ext x4 PSYCH: Appropriate mood and affect. Results - Labs CBC & Chem 7: 09/26/17 18:40 09/26/17 18:40 Labs: Short CBC 09/26/17 Range/Units 18:40 WBC 4.3 (4.0-11.0) th/mm3 Hgb 12.2 (11.6-15.3) gm/dL Hct 36.7 (35.0-46.0) % Plt Count 184 (150-450) th/mm3 BMP 09/26/17 18:40 Sodium 132 L Potassium 5.0 Chloride 94 L Carbon Dioxide 29.6 BUN 10 Creatinine 0.87 Calcium 9.7 Liver Function 07/05/18 Range/Units 18:40 Total Bilirubin 0.5 (0.2-1.0) mg/dL AST 35 (15-37) U/L ALT 21 (10-53) U/L Alkaline Phosphatase 313 H (45-117) U/L Albumin 4.0 (3.4-5.0) g/dL Urine 09/27/17 Range/Units 11:40 Urine Color Yellow (Yellw/Straw) Urine Clarity Cloudy H (Clear) Urine pH 8.0 (5.0-8.5) Ur Specific Cher[place] 1.019 (1.002-1.035) Urine Protein 30 H (Neg-Trace) mg/dL Urine Glucose (UA) Negative (Negative) mg/dL - Imaging Impressions Abdomen/Pelvis CT 09/26/17 20:07 CONCLUSION: 1. Persistent moderate ascites and body wall edema/anasarca, nonspecific but potentially cardiac in origin. 2. Pleural and pericardial effusions and panchamber enlargement of the heart again noted. 3. No obstruction or acute inflammatory changes are demonstrated. Caprini VTE Risk Assessment Caprini VTE Risk Assessment: Moderate/High Risk (score >= 2) (Patient is on Eliquis) Caprini Risk Assessment Model: Point Value = 1 Point Value = 2 Point Value = 3 Point Value = 5 Age 41-60 Minor surgery BMI > 25 kg/m2 Swollen legs Varicose veins or History of unexplained or recurrent spontaneous Oral contraceptives or hormone replacement Sepsis (< 1 month) Serious lung disease, including pneumonia (< 1 month) Abnormal pulmonary function Acute myocardial infarction Congestive heart failure (< 1 month) History of inflammatory bowel disease Medical patient at bed rest Age 61-74 Arthroscopic surgery Major open surgery (> 45 min) Laparoscopic surgery (> 45 min) Malignancy Confined to bed (> 72 hours) Immobilizing plaster cast Central venous access Age >= 75 History of VTE Family history of VTE Factor V Leiden Prothrombin [id number] Lupus anticoagulant Anticardiolipin antibodies Elevated serum homocysteine Heparin-induced thrombocytopenia Other congenital or acquired thrombophilia Stroke (< 1 month) Elective arthroplasty Hip, pelvis, or leg fracture Acute spinal cord injury (< 1 month) Prophylaxis Regimen: Total Risk Factor Score Risk Level Prophylaxis Regimen 0-1 Low Early ambulation 2 Moderate Order ONE of the following: *Sequential Compression Device (SCD) *Heparin 5000 units SQ BID 3-4 Higher Order ONE of the following medications: *Heparin 5000 units SQ TID *Enoxaparin/Lovenox 40 mg SQ daily (WT < 150 kg, CrCl > 30 mL/min) *Enoxaparin/Lovenox 30 mg SQ daily (WT < 150 kg, CrCl > 10-29 mL/min) *Enoxaparin/Lovenox 30 mg SQ BID (WT < 150 kg, CrCl > 30 mL/min) AND/OR *Sequential Compression Device (SCD) 5 or more Highest Order ONE of the following medications: *Heparin 5000 units SQ TID (Preferred with Epidurals) *Enoxaparin/Lovenox 40 mg SQ daily (WT < 150 kg, CrCl > 30 mL/min) *Enoxaparin/Lovenox 30 mg SQ daily (WT < 150 kg, CrCl > 10-29 mL/min) *Enoxaparin/Lovenox 30 mg SQ BID (WT < 150 kg, CrCl > 30 mL/min) AND *Sequential Compression Device (SCD) Assessment and Plan - Assessment (1) Pericardial effusion Code(s): I31.3 - Pericardial effusion (noninflammatory) Status: Acute Plan: Appreciate collection agent input. IR for pericardiocentesis. Procedure could not be done today because patient took Eliquis late yesterday. This is scheduled for tomorrow. Continue to monitor hemodynamics. Resume diuretics. (2) Pleural effusion Code(s): J90 - Pleural effusion, not elsewhere classified Status: Acute Plan: Diuretics as above. Patient scheduled for pericardiocentesis. Continue to monitor closely. Supplemental oxygen as needed. (3) Ascites Code(s): R18.8 - Other ascites Status: Acute Plan: I suspect her fluid overload state is secondary to valvulopathy. EF is unremarkable on echocardiogram. Appreciate collection agent input. Continue diuretics. (4) Paroxysmal A-fib Code(s): I48.0 - Paroxysmal atrial fibrillation Status: Acute Plan: Continue amiodarone. Patient is to be restarted on Eliquis after the procedure. (5) Tricuspid regurgitation Code(s): I07.1 - Rheumatic tricuspid insufficiency Status: Acute Plan: Agree with collection agent recommendations to treat conservatively with medical therapy. H&P: Quality - VTE Deep Vein Thrombosis/Pulmonary Embolism Present on Admission: No
[2017-09-27] MEDS: Primidone 250 MG Tablet PO SCH (17:38)
[2017-09-27] MEDS ORDERED: Furosemide 20 MG Tablet PO SCH (21:00)
[2017-09-28] MEDS: Primidone 250 MG Tablet PO SCH ×2 (05:42→17:40)
--- NOTE | 2017-09-28 08:56 | P.PNCA ---
Subjective Interval history: Feels "just fine". Denies dyspnea, orthopnea, PND, CP, palpitations, dizziness. Physical Exam Vital signs: Vital Signs 09/27/17 09:00 09/27/17 09:02 09/27/17 11:27 Temperature 97.6 F 98.3 F Pulse Rate 70 92 H 87 Respiratory Rate 18 18 Blood Pressure 134/82 143/81 H Pulse Oximetry 94 L 96 09/27/17 16:06 09/27/17 19:34 09/27/17 23:37 Temperature 98 F 97.8 F Pulse Rate 95 H 105 H 92 H Respiratory Rate 16 16 16 Blood Pressure 131/78 134/89 109/59 L Pulse Oximetry 95 96 95 09/28/17 03:57 09/28/17 08:17 Temperature 97.6 F Pulse Rate 98 H 88 Respiratory Rate 18 Blood Pressure 137/82 Pulse Oximetry 92 L Intake & Output 09/27/17 09/28/17 09/28/17 18:59 06:59 18:59 Intake Total 240 / 240 Output Total 500 / 500 1000 / 1000 Balance -500 / -500 -760 / -760 Intake: Oral 240 / 240 Output: Urine 500 / 500 1000 / 1000 - Constitutional no acute distress - Routine Neck Exam Present: JVD Comments: JVD to the mandible - Routine Respiratory Exam Present: CTA bilaterally - Routine Cardiovascular Exam Present: S1, S2, murmur, irregularly irregular Comments: II/ systolic murmur lower left sternal border - Routine Abdominal Exam Present: soft, normoactive bowel sounds. Absent: tenderness, organomegaly - Routine Extremities Exam Present: edema. Absent: cyanosis, clubbing Comments: 2+ pretibial edema Assessment and Plan - Assessment (1) Pericardial effusion Code(s): I31.3 - Pericardial effusion (noninflammatory) Status: Chronic Plan: Patient sent to interventional radiology yesterday for CT guided pericardiocentesis. Effusion felt to be now small to medium size. Patient clinically and hemodynamically stable. Recommend no pericardiocentesis at this time. (2) Paroxysmal A-fib Code(s): I48.0 - Paroxysmal atrial fibrillation Status: Chronic Plan: Patient appears to be in atrial fib chronically now. HR's OK. Recommend resume Eliquis, continue metoprolol. 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 Recommend conservative management with diuretic therapy. Recommend IV furosemide diuresis. - Plan Code Status: full code Discussed Condition With: patient and son (3) Tricuspid regurgitation Qualifiers: Cardiac valve disease etiology: etiology unspecified Qualified Code(s): I07.1 - Rheumatic tricuspid insufficiency
[2017-09-28] MEDS ORDERED: Amiodarone 200 MG Tablet PO SCH (09:00)
[2017-09-28 09:23] LABS: Baso % (Auto) 0.9 % (0.0-2.0); Eos # (Auto) 0.2 th/mm3 (0.0-0.4); Eos % (Auto) 4.3 % (0.0-4.0); Hematocrit 31.9 % (35.0-46.0); Hemoglobin 10.8 gm/dL (11.6-15.3); Lymph # (Auto) 0.7 th/mm3 (1.0-4.8); Lymph % (Auto) 12.6 % (9.0-44.0); Mean Corpuscular HGB Conc 33.9 % (32.0-36.0); Mean Corpuscular Hemoglobin 31.6 pg (27.0-34.0); Mean Corpuscular Volume 93.2 fL (80.0-100.0); Mean Platelet Volume 7.6 fL (7.0-11.0); Mono # (Auto) 0.7 th/mm3 (0.0-0.9); Mono % (Auto) 12.3 % (0.0-8.0); Neut # (Auto) 3.9 th/mm3 (1.8-7.7); Neut % (Auto) 69.9 % (16.0-70.0); Platelet Count 169 th/mm3 (150-450); Red Blood Count 3.43 mil/mm3 (4.00-5.30); Red Cell Distribution Width 15.3 % (11.6-17.2); White Blood Count 5.5 th/mm3 (4.0-11.0)
[2017-09-28 09:46] LABS: Alanine Aminotransferase 16 U/L (10-53); Albumin 3.1 g/dL (3.4-5.0); Alkaline Phosphatase 278 U/L (45-117); Anion Gap 8 meq/L (5-15); Aspartate Aminotransferase 27 U/L (15-37); Blood Urea Nitrogen 10 mg/dL (7-18); Carbon Dioxide 25.6 meq/L (21.0-32.0); Chloride 99 meq/L (98-107); Glomerular Filtration Rate 70 mL/min (>89); Glucose,Random 84 mg/dL (74-106); Potassium 3.9 meq/L (3.5-5.1); Sodium 133 meq/L (136-145); Total Protein 6.2 g/dL (6.4-8.2)
--- NOTE | 2017-09-28 11:36 | P.PN ---
Subjective Interval history: Follow-up visit pericardial effusion, pleural effusion, ascites, paroxysmal A. fib. Patient seen and examined today reports she is doing okay. Son at the bedside. States that she has dry mouth and has not eaten. States otherwise, she denies any shortness of breath at rest. States Dr. Salgado have seen her this morning and has mentioned that they are not going to do any procedures today. Denies pain and discomfort. Denies SOB/ dyspnea. Denies chest pain, palpitations, headaches, dizziness. Denies fevers, chills, n/v/d. Denies dysuria. Physical Exam Vital signs: Vital Signs 09/27/17 16:06 09/27/17 19:34 09/27/17 23:37 Temperature 98 F 97.8 F Pulse Rate 95 H 105 H 92 H Respiratory Rate 16 16 16 Blood Pressure 131/78 134/89 109/59 L Pulse Oximetry 95 96 95 09/28/17 03:57 09/28/17 08:00 09/28/17 08:17 Temperature 97.6 F 97.5 F L Pulse Rate 98 H 91 H 88 Respiratory Rate 18 17 Blood Pressure 137/82 135/88 Pulse Oximetry 92 L 96 Intake & Output 09/27/17 09/28/17 09/28/17 18:59 06:59 18:59 Intake Total 240 / 240 Output Total 500 / 500 1000 / 1000 Balance -500 / -500 -760 / -760 Intake: Oral 240 / 240 Output: Urine 500 / 500 1000 / 1000 Narrative: GENERAL: This is a well-nourished, well-developed patient, in no apparent distress. SKIN: Warm and dry. HEENT: Normocephalic. Pupils equal round and reactive. Nose without bleeding. Airway patent. NECK: Trachea midline. CARDIOVASCULAR: Regular rate and rhythm without murmurs, gallops, or rubs. RESPIRATORY: Diminished bases no wheezes, rales, or rhonchi. GASTROINTESTINAL: Abdomen soft, non-tender, nondistended. Bowel Sounds normoactive x4. MUSCULOSKELETAL: Extremities without clubbing, cyanosis, +1 edema. NEUROLOGICAL: Awake and alert. Oriented to time, place, person. No focal neuro deficit. Moves all extremities. Normal speech. Results - Labs CBC & Chem 7: 09/28/17 08:50 09/28/17 08:50 Laboratory Results - last 24 hr 09/27/17 09/28/17 09/28/17 11:40 08:50 08:50 WBC 5.5 RBC 3.43 L Hgb 10.8 L Hct 31.9 L MCV 93.2 MCH 31.6 MCHC 33.9 RDW 15.3 Plt Count 169 MPV 7.6 Neut % (Auto) 69.9 Lymph % (Auto) 12.6 [place] % (Auto) 12.3 H Eos % (Auto) 4.3 H Baso % (Auto) 0.9 Neut # (Auto) 3.9 Lymph # (Auto) 0.7 L [place] # (Auto) 0.7 Eos # (Auto) 0.2 Baso # (Auto) 0.0 WBC Differential . Differential Comment Auto diff final Sodium 133 L Potassium 3.9 D Chloride 99 Carbon Dioxide 25.6 Anion Gap 8 BUN 10 Creatinine 0.78 Estimated GFR 70 L Random Glucose 84 Calcium 9.0 Total Bilirubin 0.4 AST 27 ALT 16 Alkaline Phosphatase 278 H Total Protein 6.2 L D Albumin 3.1 L D Urine Color Yellow Urine Clarity Cloudy H Urine pH 8.0 Ur Specific [place] 1.019 Urine Protein 30 H Urine Glucose (UA) Negative Urine Ketones Trace H Urine Occult Blood Moderate H Urine Nitrate Negative Urine Bilirubin Negative Urine Urobilinogen Less than 2 Ur Leukocyte Esterase Large H Urine RBC 8 H Urine WBC Ur Squamous Epith Cells 1 Urine Mucus Few H Micro UA Comment Culture indicated Urine Culture Comments Culture indicated Assessment and Plan - Assessment (1) Pericardial effusion Code(s): I31.3 - Pericardial effusion (noninflammatory) Status: Chronic Plan: Appreciate screen making supervisor input. IR for pericardiocentesis. Procedure could not be done today because patient took Eliquis late yesterday. This is scheduled for tomorrow. Continue to monitor hemodynamics. Resume diuretics. (2) Pleural effusion Code(s): J90 - Pleural effusion, not elsewhere classified Status: Acute Plan: Diuretics as above. Patient scheduled for pericardiocentesis. Continue to monitor closely. Supplemental oxygen as needed. (3) Ascites Code(s): R18.8 - Other ascites Status: Acute Plan: I suspect her fluid overload state is secondary to valvulopathy. EF is unremarkable on echocardiogram. Appreciate screen making supervisor input. Continue diuretics. (4) Paroxysmal A-fib Code(s): I48.0 - Paroxysmal atrial fibrillation Status: Chronic Plan: Continue amiodarone. Patient is to be restarted on Eliquis after the procedure. 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 - Plan 86-year-old female with a medical history significant for hypertension, paroxysmal A. fib, hyperlipidemia sent to the hospital for worsening shortness of breath, lower extremity edema. Pericardial effusion Pleural effusion Ascites -Appreciate screen making supervisor input. Recommends hold off on pericardiocentesis for now we will conservatively treat with IV diuretics -Continue to monitor hemodynamics. Resume diuretics, switched to IV -Continue to monitor closely. Supplemental oxygen as needed. -fluid overload state is secondary to valvulopathy. EF is unremarkable on echocardiogram. Appreciate screen making supervisor input. Continue diuretics. -Monitor labs Paroxysmal A-fib -Patient is to be restarted on Eliquis DVT Prop Eliquis Code Status: Full code Discussed Condition With: Patient, Son, nursing, Dr. Shultz Discharge Planning: Plan to DC home when clinically improved. (5) Tricuspid regurgitation Qualifiers: Cardiac valve disease etiology: etiology unspecified Qualified Code(s): I07.1 - Rheumatic tricuspid insufficiency
[2017-09-28] MEDS: Calcium/Vitamin D 250/125 MG Tablet PO SCH (13:17)
[2017-09-28] MEDS: Ascorbic Acid 500 MG Tablet PO SCH (13:17)
[2017-09-29] MEDS: Primidone 250 MG Tablet PO SCH (05:34)
[2017-09-29 06:13] LABS: Calcium 8.7 mg/dL (8.5-10.1); Carbon Dioxide 32.1 meq/L (21.0-32.0); Potassium 3.6 meq/L (3.5-5.1)
--- NOTE | 2017-09-29 09:40 | P.PNCA ---
Subjective Interval history: Feels "good". Mild intermittent dyspnea. No orthopnea, CP, dizziness, palpitations. Physical Exam Vital signs: Vital Signs 09/28/17 12:00 09/28/17 12:20 09/28/17 15:53 Temperature 98.1 F 98.6 F Pulse Rate 99 H 90 94 H Respiratory Rate 18 16 Blood Pressure 145/94 H 158/87 H Pulse Oximetry 99 96 09/28/17 16:27 09/28/17 20:00 09/29/17 00:00 Temperature 97.8 F 97.6 F Pulse Rate 106 H 110 H 100 H Respiratory Rate 16 16 Blood Pressure 143/91 H 130/80 Pulse Oximetry 96 96 09/29/17 04:00 09/29/17 08:42 Temperature 97.8 F 97.5 F L Pulse Rate 87 86 Respiratory Rate 15 20 Blood Pressure 119/65 136/74 Pulse Oximetry 95 95 Intake & Output 09/28/17 09/29/17 09/29/17 18:59 06:59 18:59 Intake Total 360 / 360 Balance 360 / 360 Intake: Oral 360 / 360 Other: # Voids 3,000 # Bowel Movements 1 - Constitutional no acute distress - Routine Neck Exam Present: JVD Comments: JVD to the mandible, no change - Routine Respiratory Exam Present: CTA bilaterally - Routine Cardiovascular Exam Present: S1, S2, irregular rhythm. Absent: S3, S4 Comments: II/ systolic murmur lower left sternal border - Routine Abdominal Exam Present: soft, normoactive bowel sounds. Absent: tenderness, organomegaly - Routine Extremities Exam Present: edema. Absent: cyanosis, clubbing Comments: 1+ pretibial edema Assessment and Plan - Assessment (1) Paroxysmal A-fib Code(s): I48.0 - Paroxysmal atrial fibrillation Status: Chronic Plan: Patient appears to be in atrial fib chronically now. HR's OK. Recommend continue Eliquis, continue metoprolol. Keep off Amiodarone on discharge. OK to discharge late today. 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 Recommend conservative management with diuretic therapy. OK from my standpoint to discharge late this afternoon. Would keep her on furosemide 40 mg bid and metolazone 5 mg qd as she had been taking, 2 week f/u with Dr. Cobian. Also needs f/u BMP by PCP this week. (3) Pericardial effusion Code(s): I31.3 - Pericardial effusion (noninflammatory) Status: Chronic Plan: Patient sent to interventional radiology on admission for CT guided pericardiocentesis. Effusion by CT felt to be now only small to medium size. Patient clinically and hemodynamically stable. Recommend no pericardiocentesis at this time Recommend repeat echo by Dr. Cobian in next couple weeks in the office. - Plan Code Status: full code Discussed Condition With: patient (2) Tricuspid regurgitation Qualifiers: Cardiac valve disease etiology: etiology unspecified Qualified Code(s): I07.1 - Rheumatic tricuspid insufficiency
[2017-09-29] MEDS: Ascorbic Acid 500 MG Tablet PO SCH (09:57)
[2017-09-29] MEDS: Calcium/Vitamin D 250/125 MG Tablet PO SCH (09:57)
--- NOTE | 2017-09-29 10:09 | P.PN ---
Physical Exam Vital signs: Vital Signs 09/28/17 12:00 09/28/17 12:20 09/28/17 15:53 Temperature 98.1 F 98.6 F Pulse Rate 99 H 90 94 H Respiratory Rate 18 16 Blood Pressure 145/94 H 158/87 H Pulse Oximetry 99 96 09/28/17 16:27 09/28/17 20:00 09/29/17 00:00 Temperature 97.8 F 97.6 F Pulse Rate 106 H 110 H 100 H Respiratory Rate 16 16 Blood Pressure 143/91 H 130/80 Pulse Oximetry 96 96 09/29/17 04:00 09/29/17 08:42 Temperature 97.8 F 97.5 F L Pulse Rate 87 86 Respiratory Rate 15 20 Blood Pressure 119/65 136/74 Pulse Oximetry 95 95 Intake & Output 09/28/17 09/29/17 09/29/17 18:59 06:59 18:59 Intake Total 360 / 360 Balance 360 / 360 Intake: Oral 360 / 360 Other: # Voids 3,000 # Bowel Movements 1 Results - Labs CBC & Chem 7: 09/28/17 08:50 09/29/17 04:50 Laboratory Results - last 24 hr 09/29/17 04:50 Sodium 137 Potassium 3.6 Chloride 96 L Carbon Dioxide 32.1 H Anion Gap 9 BUN 14 Creatinine 0.85 Estimated GFR 64 L Random Glucose 87 Calcium 8.7 Microbiology 09/27/17 11:40 Clean Catch Urine Urine Culture - Preliminary Group B beta Strep Assessment and Plan - Assessment (1) Pericardial effusion Code(s): I31.3 - Pericardial effusion (noninflammatory) Status: Chronic Plan: Appreciate move coordinator input. IR for pericardiocentesis. Procedure could not be done today because patient took Eliquis late yesterday. This is scheduled for tomorrow. Continue to monitor hemodynamics. Resume diuretics. (2) Pleural effusion Code(s): J90 - Pleural effusion, not elsewhere classified Status: Acute Plan: Diuretics as above. Patient scheduled for pericardiocentesis. Continue to monitor closely. Supplemental oxygen as needed. (3) Ascites Code(s): R18.8 - Other ascites Status: Acute Plan: I suspect her fluid overload state is secondary to valvulopathy. EF is unremarkable on echocardiogram. Appreciate move coordinator input. Continue diuretics. (4) Paroxysmal A-fib Code(s): I48.0 - Paroxysmal atrial fibrillation Status: Chronic Plan: Continue amiodarone. Patient is to be restarted on Eliquis after the procedure. 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 - Plan 86-year-old female with a medical history significant for hypertension, paroxysmal A. fib, hyperlipidemia sent to the hospital for worsening shortness of breath, lower extremity edema. Pericardial effusion Pleural effusion Ascites -Appreciate move coordinator input. Recommends hold off on pericardiocentesis for now we will conservatively treat with IV diuretics -Continue to monitor hemodynamics. Resume diuretics, switched to IV -Continue to monitor closely. Supplemental oxygen as needed. -fluid overload state is secondary to valvulopathy. EF is unremarkable on echocardiogram. Appreciate move coordinator input. Continue diuretics. -Monitor labs Paroxysmal A-fib -Patient is to be restarted on Eliquis DVT Prop Eliquis Discharge Planning: Plan to DC home when clinically improved. (5) Tricuspid regurgitation Qualifiers: Cardiac valve disease etiology: etiology unspecified Qualified Code(s): I07.1 - Rheumatic tricuspid insufficiency
--- NOTE | 2017-09-29 11:06 | P.DCO ---
- Physical Therapy Order: Evaluate and treat - Home Health Nursing Order: Signs/symptoms of disease process, CHF education, Medication education- adverse effect - Certification I have seen patient Ana Tejada on 09/29/17. My clinical findings support the need for the requested home health care services because: Limited mobility due to disease progression, Deconditioned with increased weakness, High risk of falls, Infection with risk of complications I certify that my clinical findings support that this patient is homebound because: Unsteady gait/balance, Unable to use public transportation, Poor cardiac reserve
--- NOTE | 2017-09-29 11:09 | P.DS ---
Date of admission: 09/27/17 00:31 Primary care physician: Aguilar Barriga MD Attending physician on discharge: Deborah Shultz Anticipated date of discharge: 09/29/17 Brief History from admission: 86-year-old female with a medical history significant for hypertension, paroxysmal A. fib, hyperlipidemia sent to the hospital for worsening shortness of breath, lower extremity edema. Patient was found to have a large pericardial effusion on a recent echocardiogram and abdominal CT. She reports increasing dyspnea with minimal exertion. She reports abdominal bloating. The patient currently denies chest pain. No nausea or vomiting. She states she is okay as long as she does not move much. DS: Diagnosis - Discharge Diagnosis (1) Pericardial effusion Status: Chronic (2) Pleural effusion Status: Acute (3) Ascites Status: Acute (4) Paroxysmal A-fib Status: Chronic (5) Tricuspid regurgitation Status: Chronic DS: Medications - Discharge Medications Prescriptions: furosemide [Lasix] 40 mg PO BID #60 tab metolazone 5 mg PO DAILY #30 tab DS: Summary Hospital Course: Patient is an 86-year-old female with a medical history significant for hypertension, paroxysmal A. fib, hyperlipidemia sent to the hospital for worsening shortness of breath, lower extremity edema. CT of the abdomen chest and pelvis 1. Persistent moderate ascites and body wall edema/anasarca, nonspecific but potentially cardiac in origin. 2. Pleural and pericardial effusions and panchamber enlargement of the heart again noted. 3. No obstruction or acute inflammatory changes are demonstrated. Field Scout, Dr. Fitzgerald has seen the patient. Fluid overload state is secondary to valvulopathy. EF is unremarkable on echocardiogram.Initially, recommends pericardiocentesis however patient has slowly improved. Hold off on pericardiocentesis for now and patient was conservatively managed with IV diuretics. She will continue to have diuretics with metolazone at home. She was not on supplemental oxygen in the inpatient. Patient has paroxysmal atrial fibrillation were and she was restarted on Eliquis. Will hold off on amiodarone for now until evaluated and patient. She will follow with . is an outpatient. Patient found to have urinary tract infection with group B cultures. Started on Ceftin. She will continue Ceftin for 7 days at home. Patient has met maximal benefits of hospitalization. Clinically stable for discharge. - Time Spent with Patient Total time spent providing and/or coordinating discharge services: Less than 30 minutes - Quality: VTE Deep Vein Thrombosis/Pulmonary Embolism Present on Admission: No Exam Vital signs: Vital Signs 09/28/17 12:00 09/28/17 12:20 09/28/17 15:53 Temperature 98.1 F 98.6 F Pulse Rate 99 H 90 94 H Respiratory Rate 18 16 Blood Pressure 145/94 H 158/87 H Pulse Oximetry 99 96 09/28/17 16:27 09/28/17 20:00 09/29/17 00:00 Temperature 97.8 F 97.6 F Pulse Rate 106 H 110 H 100 H Respiratory Rate 16 16 Blood Pressure 143/91 H 130/80 Pulse Oximetry 96 96 09/29/17 04:00 09/29/17 08:42 Temperature 97.8 F 97.5 F L Pulse Rate 87 86 Respiratory Rate 15 20 Blood Pressure 119/65 136/74 Pulse Oximetry 95 95 Intake & Output 09/28/17 09/29/17 09/29/17 18:59 06:59 18:59 Intake Total 360 / 360 Balance 360 / 360 Intake: Oral 360 / 360 Other: # Voids 3,000 # Bowel Movements 1 Narrative: GENERAL: This is a well-nourished, well-developed patient, in no apparent distress. SKIN: Warm and dry. HEENT: Normocephalic. Pupils equal round. Nose without bleeding. Airway patent. NECK: Trachea midline. Supple. CARDIOVASCULAR: Regular rate and rhythm without murmurs, gallops, or rubs. RESPIRATORY: Clear to auscultation. Breath sounds equal bilaterally. No wheezes , rales, or rhonchi. GASTROINTESTINAL: Abdomen soft, non-tender, nondistended. Bowel Sounds normoactive x4. MUSCULOSKELETAL: Extremities without clubbing, cyanosis. Bilateral lower extremity +2 edema. NEUROLOGICAL: Awake and alert. Oriented to time, place, person. Moves all extremities. Normal speech. Results Procedures completed during hospitalization: None Labs on day of discharge: Labs from last 24 hours 09/29/17 04:50 Sodium 137 Potassium 3.6 Chloride 96 L Carbon Dioxide 32.1 H Anion Gap 9 BUN 14 Creatinine 0.85 Estimated GFR 64 L Random Glucose 87 Calcium 8.7 Preliminary micro results at discharge 09/27/17 11:40 Urine Culture - Preliminary Clean Catch Urine Group B beta Strep - Impressions ITS Impressions Abdomen/Pelvis CT 09/26/17 20:07 CONCLUSION: 1. Persistent moderate ascites and body wall edema/anasarca, nonspecific but potentially cardiac in origin. 2. Pleural and pericardial effusions and panchamber enlargement of the heart again noted. 3. No obstruction or acute inflammatory changes are demonstrated. Discharge Plan - Discharge Disposition Patient Disposition: 01 Discharge Home - Discharge Condition Condition: Good - Discharge Order Discharge Orders: Discharge Order (Routine); Ordered 09/29/17 Ordered By: Thalia Morrison - Physicians Team Primary Care Provider: Aguilar Barriga Attending Provider: Deborah Shultz Other Providers: Dennis Fitzgerald MD
--- NOTE | 2017-10-01 14:42 | US ---
EXAM DATE: 09/27/2017 2:00 PM EDT AGE/SEX: 86 years / Female INDICATIONS: Pleural effusion. CLINICAL DATA: This is the patient's initial encounter. Patient reports that signs and symptoms have been present for 4 - 6 days and indicates a pain score of 0/10. MEDICAL/SURGICAL HISTORY: Chronic obstructive pulmonary disease. Hypertension. Tonsillectomy. COMPARISON: No prior exams available for comparison. MEASUREMENTS: Skin To Parietal Pleura:__. cm Skin To Max Safe Depth:__. cm Estimated Fluid Volume:__. cc Fluid Composition:__simple FINDINGS: A small pleural effusion with underlying collapse lungs noted. No marking was performed. CONCLUSION: Insufficient amount of pleural effusion for thoracentesis. Electronically signed by: Jonn Walker MD 10/01/2017 2:40 PM EDT
== END 2017-09-29 17:03 | disposition home or self-care (01) ==
LOC: NEDA 12:13 → NEPE 12:13 → NEPHCDU 12:13
PROVIDERS: ADMIT Family Medicine; ATTEND Family Medicine

== ENCOUNTER 2017-10-13 10:31 | Inpatient (IN) ==
--- NOTE | 2017-10-13 11:09 | ED ---
HPI General Chief Complaint: Altered Mental Status Stated Complaint: Altered Mental Time Seen by Provider: 10/13/17 10:48 Source: patient and family Mode of arrival: EMS Limitations: altered mental status History of Present Illness HPI narrative: 86-year-old female who presents by ambulance with one-week history of altered mental status per daughter. Patient cannot provide me with significant history but denies complaints MD complaint: altered mental status Onset (ago): week(s) Timing confirmed by: family member Associated symptoms: denies other symptoms Related Data Home Medications Medication Instructions Recorded Confirmed apixaban [Eliquis] 5 mg PO BID 09/26/17 09/26/17 ascorbic acid (vitamin C) [Vitamin 500 mg PO DAILY 09/26/17 09/26/17 C] aspirin [Aspirin Low Dose] 81 mg PO DAILY 09/26/17 09/26/17 calcium citrate-vitamin D3 1 tab PO QAM 09/26/17 09/26/17 [Citracal + D Maximum] levothyroxine 200 mcg PO DAILY 09/26/17 09/26/17 metoprolol succinate 100 mg PO DAILY 09/26/17 09/26/17 multivitamin 1 tab PO DAILY 09/26/17 09/26/17 polyvinyl alcohol [Artificial 1 drop EACH EYE BID 09/26/17 09/26/17 Tears (polyvin alc)] potassium chloride 10 meq PO DAILY 09/26/17 09/26/17 pravastatin 40 mg PO DAILY 09/26/17 09/26/17 primidone 125 mg PO Q12H 09/26/17 09/26/17 Previous Rx's Medication Instructions Recorded cefuroxime axetil 500 mg PO Q12HR #14 tab 09/29/17 furosemide [Lasix] 40 mg PO BID #60 tab 09/29/17 metolazone 5 mg PO DAILY #30 tab 09/29/17 Allergies Allergy/AdvReac Type Severity Reaction Status Date / Time simvastatin Allergy Unknown Rash Verified 10/13/17 10:37 Review of Systems ROS Unobtainable unobtainable due to mental status PMFSH Medical History Medical History Pericardial effusion without cardiac tamponade (Acute) Pleural effusion (Acute) Paroxysmal A-fib (Acute) COPD (chronic obstructive pulmonary disease) (Acute) Hypertension (Acute) High cholesterol (Acute) Hypothyroidism (Acute) Surgical History Surgical History Hx of tonsillectomy (Acute) Family History Family History Other Family history non-contributory Social History Social History Substance History: No History of Abuse Second Hand Smoke Exposure: Yes Smoking Status: Never smoker How Often Do You Have a Drink Containing Alcohol: Never Recent Travel in [place] within the Last 8 Weeks: No Recent Out of Country Travel within the Last 8 Weeks: No Immunization History Tetanus Immunization: Unsure Exam Narrative Exam Narrative: GENERAL: 86-year-old female in no apparent distress SKIN: Focused skin assessment warm/dry. HEAD: Atraumatic. Normocephalic. EYES: Pupils equal and round. No scleral icterus. No injection or drainage. ENT: No nasal bleeding or discharge. Mucous membranes pink and moist. NECK: Trachea midline. CARDIOVASCULAR: Regular rate and rhythm but limited by artifact RESPIRATORY: No accessory muscle use. Clear to auscultation. Breath sounds equal bilaterally. GASTROINTESTINAL: Abdomen soft, non-tender, nondistended. MUSCULOSKELETAL: No obvious deformities. No clubbing. No cyanosis. NEUROLOGICAL: Awake and alert to first name, thinks 35 years old. moves extremities. clear speech. Course Reevaluation(s) Reevaluation #1: Patient's daughter is at bedside. She was updated in history was confirmed. She agrees to admission. She confirms no CODE STATUS which was ordered. Consultations Consultation #1: dr so agrees to admit Initial Documented Vital Signs Temperature 97.9 F 10/13/17 10:37 Pulse Rate 99 H 10/13/17 10:37 Respiratory Rate 20 10/13/17 10:37 Blood Pressure 173/93 H 10/13/17 10:37 Pulse Oximetry 97 10/13/17 10:37 Last Documented Vital Signs Temperature 97.9 F 10/13/17 10:37 Pulse Rate 99 H 10/13/17 10:37 Respiratory Rate 20 10/13/17 10:37 Blood Pressure 158/89 H 10/13/17 10:41 Pulse Oximetry 97 10/13/17 11:36 Medical Decision Making MDM Narrative Medical decision making narrative: Will check blood work, imaging and reevaluate Differential Diagnosis Differential Diagnosis: UTI, electrolyte abnormality, intracranial Medical Records Medical records reviewed: Yes I reviewed the patient's medical records. Patiently recently in the hospital on September 29 with pericardial effusion that improved with diuretics. Had UTI as well as ascites Lab Data Result diagrams: 10/13/17 11:20 10/13/17 11:20 Lab Results 10/13/17 10/13/17 10/13/17 Range/Units 11:20 11:20 11:20 WBC 6.2 (4.0-11.0) th/mm3 RBC 3.68 L (4.00-5.30) mil/mm3 Hgb 11.5 L (11.6-15.3) gm/dL Hct 33.5 L (35.0-46.0) % MCV 91.0 (80.0-100.0) fL MCH 31.2 (27.0-34.0) pg MCHC 34.2 (32.0-36.0) % RDW 15.4 (11.6-17.2) % Plt Count 201 (150-450) th/mm3 MPV 8.1 (7.0-11.0) fL Neut % (Auto) 75.5 H (16.0-70.0) % Lymph % (Auto) 8.6 L (9.0-44.0) % [place] % (Auto) 14.9 H (0.0-8.0) % Eos % (Auto) 0.5 (0.0-4.0) % Baso % (Auto) 0.5 (0.0-2.0) % Neut # (Auto) 4.7 (1.8-7.7) th/mm3 Lymph # (Auto) 0.5 L (1.0-4.8) th/mm3 [place] # (Auto) 0.9 (0.0-0.9) th/mm3 Eos # (Auto) 0.0 (0.0-0.4) th/mm3 Baso # (Auto) 0.0 (0.0-0.2) th/mm3 WBC Differential . Differential Comment Auto diff final PT 12.6 H (9.8-11.6) sec INR 1.2 Ratio APTT 26.0 (24.3-30.1) sec Sodium 122 L* (136-145) meq/L Potassium 2.9 L* (3.5-5.1) meq/L Chloride 77 L (98-107) meq/L Carbon Dioxide 32.9 H (21.0-32.0) meq/L Anion Gap 12 (5-15) meq/L BUN 25 H (7-18) mg/dL Creatinine 0.85 (0.50-1.00) mg/dL Estimated GFR 64 L (>89) mL/min Random Glucose 98 (74-106) mg/dL Lactic Acid (0.4-2.0) mmol/L Calcium 9.0 (8.5-10.1) mg/dL Total Bilirubin 0.7 (0.2-1.0) mg/dL AST 56 H (15-37) U/L ALT 34 (10-53) U/L Alkaline Phosphatase 227 H (45-117) U/L Ammonia (11-32) mcmol/L Total Creatine Kinase 86 (26-192) U/L Troponin I Less than 0.02 L (0.02-0.05) ng/mL Total Protein 7.5 (6.4-8.2) g/dL Albumin 4.0 (3.4-5.0) g/dL Urine Color (Yellw/Straw) Urine Clarity (Clear) Urine pH (5.0-8.5) Ur Specific [place] (1.002-1.035) Urine Protein (Neg-Trace) mg/dL Urine Glucose (UA) (Negative) mg/dL Urine Ketones (Negative) mg/dL Urine Occult Blood (Negative) Urine Nitrate (Negative) Urine Bilirubin (Negative) Urine Urobilinogen (Less than 2) mg/dL Ur Leukocyte Esterase (Negative) Urine RBC (0-3) /hpf Urine WBC (0-5) /hpf Urine Bacteria (None) /hpf Hyaline Casts (0-3) /lpf Micro UA Comment Urine Culture Comments 10/13/17 10/13/17 10/13/17 Range/Units 11:20 11:20 11:20 WBC (4.0-11.0) th/mm3 RBC (4.00-5.30) mil/mm3 Hgb (11.6-15.3) gm/dL Hct (35.0-46.0) % MCV (80.0-100.0) fL MCH (27.0-34.0) pg MCHC (32.0-36.0) % RDW (11.6-17.2) % Plt Count (150-450) th/mm3 MPV (7.0-11.0) fL Neut % (Auto) (16.0-70.0) % Lymph % (Auto) (9.0-44.0) % [place] % (Auto) (0.0-8.0) % Eos % (Auto) (0.0-4.0) % Baso % (Auto) (0.0-2.0) % Neut # (Auto) (1.8-7.7) th/mm3 Lymph # (Auto) (1.0-4.8) th/mm3 [place] # (Auto) (0.0-0.9) th/mm3 Eos # (Auto) (0.0-0.4) th/mm3 Baso # (Auto) (0.0-0.2) th/mm3 WBC Differential Differential Comment PT (9.8-11.6) sec INR Ratio APTT (24.3-30.1) sec Sodium (136-145) meq/L Potassium (3.5-5.1) meq/L Chloride (98-107) meq/L Carbon Dioxide (21.0-32.0) meq/L Anion Gap (5-15) meq/L BUN (7-18) mg/dL Creatinine (0.50-1.00) mg/dL Estimated GFR (>89) mL/min Random Glucose (74-106) mg/dL Lactic Acid 1.7 (0.4-2.0) mmol/L Calcium (8.5-10.1) mg/dL Total Bilirubin (0.2-1.0) mg/dL AST (15-37) U/L ALT (10-53) U/L Alkaline Phosphatase (45-117) U/L Ammonia 22 (11-32) mcmol/L Total Creatine Kinase (26-192) U/L Troponin I (0.02-0.05) ng/mL Total Protein (6.4-8.2) g/dL Albumin (3.4-5.0) g/dL Urine Color Yellow (Yellw/Straw) Urine Clarity Hazy H (Clear) Urine pH 6.0 (5.0-8.5) Ur Specific [place] 1.012 (1.002-1.035) Urine Protein 30 H (Neg-Trace) mg/dL Urine Glucose (UA) Negative (Negative) mg/dL Urine Ketones Negative (Negative) mg/dL Urine Occult Blood Negative (Negative) Urine Nitrate Negative (Negative) Urine Bilirubin Negative (Negative) Urine Urobilinogen Less than 2 (Less than 2) mg/dL Ur Leukocyte Esterase Negative (Negative) Urine RBC 1 (0-3) /hpf Urine WBC 1 (0-5) /hpf Urine Bacteria Rare H (None) /hpf Hyaline Casts 3 (0-3) /lpf Micro UA Comment Cath-culture ind Urine Culture Comments Cath-cult indicated Imaging Data Radiologist's impression: Chest X-Ray 10/13/17 10:56 CONCLUSION: 1. Mild interval decrease in left effusion with mild residual. 2. Cardiomegaly. Head CT 10/13/17 10:56 CONCLUSION: 1. Exam is somewhat limited due to motion artifact. 2. Scattered, periventricular areas of diminished attenuation characteristic of some degree of chronic small vessel ischemic demyelination. 3. Nothing acute. Discharge Plan Discharge Disposition Patient Disposition: 30 Still Patient Discharge Details Diagnosis: Acute hyponatremia, Acute hypokalemia, Acute alteration in mental status Physicians Team ED Provider: Lizette Smith Primary Care Provider: Aguilar Barriga Attending Provider: Andria So Status ED Status: Admitted Patient
[2017-10-13 11:30] LABS: Baso % (Auto) 0.5 % (0.0-2.0); Eos % (Auto) 0.5 % (0.0-4.0); Hematocrit 33.5 % (35.0-46.0); Hemoglobin 11.5 gm/dL (11.6-15.3); Lymph # (Auto) 0.5 th/mm3 (1.0-4.8); Lymph % (Auto) 8.6 % (9.0-44.0); Mean Corpuscular HGB Conc 34.2 % (32.0-36.0); Mean Corpuscular Hemoglobin 31.2 pg (27.0-34.0); Mean Platelet Volume 8.1 fL (7.0-11.0); Mono # (Auto) 0.9 th/mm3 (0.0-0.9); Mono % (Auto) 14.9 % (0.0-8.0); Neut # (Auto) 4.7 th/mm3 (1.8-7.7); Neut % (Auto) 75.5 % (16.0-70.0); Platelet Count 201 th/mm3 (150-450); Red Blood Count 3.68 mil/mm3 (4.00-5.30); Red Cell Distribution Width 15.4 % (11.6-17.2); White Blood Count 6.2 th/mm3 (4.0-11.0)
[2017-10-13 11:41] LABS: INR 1.2 Ratio; Prothrombin Time 12.6 sec (9.8-11.6)
--- NOTE | 2017-10-13 11:48 | XR ---
EXAM DATE: 10/13/2017 11:39 AM EDT AGE/SEX: 86 years / Female INDICATIONS: Short of breath. Follow-up left effusion. CLINICAL DATA: This is the patient's initial encounter. Patient reports that signs and symptoms have been present for 1 day and indicates a pain score of 5/10. MEDICAL/SURGICAL HISTORY: None. None. COMPARISON: POI, XR CHEST PA AND LAT, 08/05/2017. . FINDINGS: A single AP portable view of the chest was obtained and demonstrates interval decrease in the left ef fusion. The left costophrenic angle remains mildly blunted. The right lung is clear. The heart size r emains mildly prominent with no perihilar edema. Atherosclerotic changes are again noted in the aorta . CONCLUSION: 1. Mild interval decrease in left effusion with mild residual. 2. Cardiomegaly. Electronically signed by: Sabino Gudino MD 10/13/2017 11:46 AM EDT
[2017-10-13 12:04] LABS: Alanine Aminotransferase 34 U/L (10-53); Anion Gap 12 meq/L (5-15); Aspartate Aminotransferase 56 U/L (15-37); Blood Urea Nitrogen 25 mg/dL (7-18); Carbon Dioxide 32.9 meq/L (21.0-32.0); Chloride 77 meq/L (98-107); Glomerular Filtration Rate 64 mL/min (>89); Glucose,Random 98 mg/dL (74-106)
--- NOTE | 2017-10-13 12:09 | CT ---
EXAM DATE: 10/13/2017 12:05 PM EDT AGE/SEX: 86 years / Female INDICATIONS: Altered mental status CLINICAL DATA: This is the patient's initial encounter. Patient reports that signs and symptoms have been present for 1 day and indicates a pain score of 0/10. MEDICAL/SURGICAL HISTORY: Chronic obstructive pulmonary disease. Hypertension. Atrial Fib Tonsill ectomy. RADIATION DOSE: 35.99 CTDI (mGy) COMPARISON: No prior exams available for comparison. TECHNIQUE: CT of the head without contrast. Using automated exposure control and adjustment of the mA and/or kV according to patient size, radiation dose was kept as low as reasonably achievable to ob tain optimal diagnostic quality images. DICOM format image data is available electronically for revi ew and comparison. FINDINGS: Cerebrum: Anatomic detail is somewhat limited due to motion artifact. Periventricular scattered area s of diminished attenuation characteristic of some degree of small vessel ischemic The ventricles are normal for age. No evidence of midline shift, mass lesion, hemorrhage or acute infarction. No extr aaxial fluid collections are seen. Posterior Fossa: The cerebellum and brainstem are intact. The 4th ventricle is midline. The cerebe llopontine angle is unremarkable. Extracranial: The visualized portion of the orbits is intact. Skull: The calvaria is intact. No evidence of skull fracture. CONCLUSION: 1. Exam is somewhat limited due to motion artifact. 2. Scattered, periventricular areas of diminished attenuation characteristic of some degree of chron ic small vessel ischemic demyelination. 3. Nothing acute. Electronically signed by: Aidan Roca MD 10/13/2017 12:08 PM EDT
[2017-10-13 12:22] LABS: Alkaline Phosphatase 227 U/L (45-117); Total Protein 7.5 g/dL (6.4-8.2)
[2017-10-13 12:24] LABS: Creatine Kinase 86 U/L (26-192)
[2017-10-13 12:26] LABS: Potassium 2.9 meq/L (3.5-5.1); Sodium 122 meq/L (136-145)
[2017-10-13] MEDS ORDERED: Sodium Chlor 0.9% Inj 500 ML IV.SIG ONE (12:29)
[2017-10-13] MEDS ORDERED: Potassium Chloride 25 MEQ Effervescent Tablet PO ONE (12:29)
[2017-10-13 12:48] LABS: Bacteria,Urine Rare /hpf; Bilirubin,Urine Negative (Negative); Clarity,Urine Hazy (Clear); Color,Urine Yellow (Yellw/Straw); Glucose,Urine (UA) Negative (Negative); Hyaline Casts,Urine 3 /lpf (0-3); Leukocyte Esterase,Urine Negative (Negative); Nitrite,Urine Negative (Negative); Specific Gravity,Urine 1.012 (1.002-1.035)
[2017-10-13] MEDS ORDERED: Bisacodyl 10 MG Supp RECTAL PRN (13:49)
--- NOTE | 2017-10-13 13:49 | P.HPIM ---
History of Present Illness Primary Care Physician: Aguilar Barriga MD Chief Complaint: Confusion History of Present Illness: 86-year-old white female with a history of pericardial effusion, pleural effusion, COPD, hypertension who was recently discharged on September 29 for pericardial effusion pleural effusion on diuretics was brought to the emergency room by her daughter secondary to changes in her mental status as she has become more agitated and confused from her baseline. Due to her confused mental status, I am unable to get much history from the patient. Most of the history was gathered from discussing with the ED physician and reviewing medical records. Nursing staff states her daughter just left the emergency room. Per old medical records, patient had a recent admission for pericardial effusion and pleural effusion and was managed with diuretics and was sent home on Lasix, metolazone, and potassium supplements. 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 - Diagnosis (1) Acute metabolic encephalopathy (2) Acute hyponatremia (3) Acute hypokalemia Review of Systems unobtainable due to mental status PMFSH - History History Provided By: Medical Record, Airworthiness Safety Inspector / EMT - Medical History Medical History: Medical History (Last Updated 10/13/17 @ 13:48 by Andria Oden MD) Pericardial effusion without cardiac tamponade (Acute) Pleural effusion (Acute) Paroxysmal A-fib (Acute) COPD (chronic obstructive pulmonary disease) (Acute) Hypertension (Acute) High cholesterol Hypothyroidism - Surgical History Surgical History: Surgical History (Last Reviewed 10/13/17 @ 13:42 by Andria Oden MD) Hx of tonsillectomy (Acute) - Family History Family History: Family History (Last Updated 10/13/17 @ 13:42 by Andria Oden MD) Other Family history non-contributory - Tobacco History Second Hand Smoke Exposure: Yes Smoking Status: Never smoker - Alcohol History How Often Do You Have a Drink Containing Alcohol: Never - Substance Use History Substance History: No History of Abuse - Travel History Recent Travel in the [place] Within the Last 8 Weeks: No Recent Travel Out of the Country Within the Last 8 Weeks: No - Immunization History Tetanus Immunization: Unsure Medications and Allergies Active Medications: Active Medications Sodium Chloride (Ns Flush) 2 ml IV.FLUSH PRN PRN PRN Reason: FLUSH AFTER USING IV ACCESS Allergies Allergy/AdvReac Type Severity Reaction Status Date / Time simvastatin Allergy Unknown Rash Verified 10/13/17 10:37 Home Medications Medication Instructions Recorded Confirmed Type apixaban [Eliquis] 5 mg PO BID 09/26/17 09/26/17 History ascorbic acid (vitamin C) [Vitamin 500 mg PO DAILY 09/26/17 09/26/17 History C] aspirin [Aspirin Low Dose] 81 mg PO DAILY 09/26/17 09/26/17 History calcium citrate-vitamin D3 1 tab PO QAM 09/26/17 09/26/17 History [Citracal + D Maximum] levothyroxine 200 mcg PO DAILY 09/26/17 09/26/17 History metoprolol succinate 100 mg PO DAILY 09/26/17 09/26/17 History multivitamin 1 tab PO DAILY 09/26/17 09/26/17 History polyvinyl alcohol [Artificial 1 drop EACH EYE BID 09/26/17 09/26/17 History Tears (polyvin alc)] potassium chloride 10 meq PO DAILY 09/26/17 09/26/17 History pravastatin 40 mg PO DAILY 09/26/17 09/26/17 History primidone 125 mg PO Q12H 09/26/17 09/26/17 History Exam Vital signs: Vital Signs 10/13/17 10:37 10/13/17 10:41 10/13/17 11:36 Temperature 97.9 F Pulse Rate 99 H Respiratory Rate 20 Blood Pressure 173/93 H 158/89 H Pulse Oximetry 97 97 Intake & Output 10/12/17 10/13/17 10/13/17 18:59 06:59 18:59 Weight 59.174 kg Narrative: GENERAL: Well-nourished well-developed white female in no acute distress agitated restless with right arm in soft restraints SKIN: Warm and dry. HEAD: Atraumatic. Normocephalic. EYES: Pupils equal and round. No scleral icterus. No injection or drainage. ENT: No nasal bleeding or discharge. Mucous membranes pink and moist. NECK: Trachea midline. No JVD. CARDIOVASCULAR: Regular rate and rhythm. RESPIRATORY: No accessory muscle use. Clear to auscultation. Breath sounds equal bilaterally. GASTROINTESTINAL: Abdomen soft, non-tender, nondistended. Hepatic and splenic margins not palpable. MUSCULOSKELETAL: Extremities without clubbing, cyanosis, or edema. No obvious deformities. NEUROLOGICAL: Confused, agitated and not oriented to person place or time no obvious cranial nerve deficits. Patient moved all 4 extremities PSYCHIATRIC: Appropriate mood and affect agitated; did not answer much of my questions. Results - Labs CBC & Chem 7: 10/13/17 11:20 10/13/17 11:20 Labs: Short CBC 10/13/17 Range/Units 11:20 WBC 6.2 (4.0-11.0) th/mm3 Hgb 11.5 L (11.6-15.3) gm/dL Hct 33.5 L (35.0-46.0) % Plt Count 201 (150-450) th/mm3 BMP 10/13/17 11:20 Sodium 122 L* Potassium 2.9 L* Chloride 77 L Carbon Dioxide 32.9 H BUN 25 H Creatinine 0.85 Calcium 9.0 Cardiac Enzymes 10/13/17 Range/Units 11:20 Total Creatine Kinase 86 (26-192) U/L Troponin I Less than 0.02 L (0.02-0.05) ng/mL Liver Function 10/13/17 Range/Units 11:20 Total Bilirubin 0.7 (0.2-1.0) mg/dL AST 56 H (15-37) U/L ALT 34 (10-53) U/L Alkaline Phosphatase 227 H (45-117) U/L Albumin 4.0 (3.4-5.0) g/dL Urine 10/13/17 Range/Units 11:20 Urine Color Yellow (Yellw/Straw) Urine Clarity Hazy H (Clear) Urine pH 6.0 (5.0-8.5) Ur Specific [place] 1.012 (1.002-1.035) Urine Protein 30 H (Neg-Trace) mg/dL Urine Glucose (UA) Negative (Negative) mg/dL - Imaging Impressions Chest X-Ray 10/13/17 10:56 CONCLUSION: 1. Mild interval decrease in left effusion with mild residual. 2. Cardiomegaly. Head CT 10/13/17 10:56 CONCLUSION: 1. Exam is somewhat limited due to motion artifact. 2. Scattered, periventricular areas of diminished attenuation characteristic of some degree of chronic small vessel ischemic demyelination. 3. Nothing acute. Caprini VTE Risk Assessment Caprini VTE Risk Assessment: Moderate/High Risk (score >= 2) Caprini Risk Assessment Model: Point Value = 1 Point Value = 2 Point Value = 3 Point Value = 5 Age 41-60 Minor surgery BMI > 25 kg/m2 Swollen legs Varicose veins or History of unexplained or recurrent spontaneous Oral contraceptives or hormone replacement Sepsis (< 1 month) Serious lung disease, including pneumonia (< 1 month) Abnormal pulmonary function Acute myocardial infarction Congestive heart failure (< 1 month) History of inflammatory bowel disease Medical patient at bed rest Age 61-74 Arthroscopic surgery Major open surgery (> 45 min) Laparoscopic surgery (> 45 min) Malignancy Confined to bed (> 72 hours) Immobilizing plaster cast Central venous access Age >= 75 History of VTE Family history of VTE Factor V Leiden Prothrombin [id number] Lupus anticoagulant Anticardiolipin antibodies Elevated serum homocysteine Heparin-induced thrombocytopenia Other congenital or acquired thrombophilia Stroke (< 1 month) Elective arthroplasty Hip, pelvis, or leg fracture Acute spinal cord injury (< 1 month) Prophylaxis Regimen: Total Risk Factor Score Risk Level Prophylaxis Regimen 0-1 Low Early ambulation 2 Moderate Order ONE of the following: *Sequential Compression Device (SCD) *Heparin 5000 units SQ BID 3-4 Higher Order ONE of the following medications: *Heparin 5000 units SQ TID *Enoxaparin/Lovenox 40 mg SQ daily (WT < 150 kg, CrCl > 30 mL/min) *Enoxaparin/Lovenox 30 mg SQ daily (WT < 150 kg, CrCl > 10-29 mL/min) *Enoxaparin/Lovenox 30 mg SQ BID (WT < 150 kg, CrCl > 30 mL/min) AND/OR *Sequential Compression Device (SCD) 5 or more Highest Order ONE of the following medications: *Heparin 5000 units SQ TID (Preferred with Epidurals) *Enoxaparin/Lovenox 40 mg SQ daily (WT < 150 kg, CrCl > 30 mL/min) *Enoxaparin/Lovenox 30 mg SQ daily (WT < 150 kg, CrCl > 10-29 mL/min) *Enoxaparin/Lovenox 30 mg SQ BID (WT < 150 kg, CrCl > 30 mL/min) AND *Sequential Compression Device (SCD) Assessment and Plan - Assessment (1) Acute metabolic encephalopathy Code(s): G93.41 - Metabolic encephalopathy Status: Acute (2) Acute hyponatremia Code(s): E87.1 - Hypo-osmolality and hyponatremia Status: Acute (3) Acute hypokalemia Code(s): E87.6 - Hypokalemia Status: Acute - Plan 86-year-old white female with a previous history of pericardial effusion without cardiac tamponade not, pleural effusion, proximal atrial fibrillation, COPD hypertension was brought to the emergency room with increased agitation and altered mental status 1. Severe hyponatremia with likely hypovolemia on 2 diuretics due to previous pleural effusion and pericardial effusionat this time will hold diuretics, gentle hydration with normal saline with potassium supplements. Will monitor closely due to history of the pleural and pericardial effusion. 2. Hypokalemialikely due to chronic diuretic use. supplement, check magnesium level 3. Metabolic encephalopathypatient's altered mental status likely due to the severe hyponatremia and hypokalemiacontinue neurological checks and correction of electrolyte abnormality. 4. History of COPD not in exacerbationDuoNeb's as needed 5. History of paroxysmal atrial fibrillationcontinue with Eliquis currently normal sinus rhythm and continue with metoprolol. 6. History of hyperlipidemiacontinue with statin 7. DVT prophylaxisEliquis
[2017-10-13] MEDS ORDERED: ALPRAZolam 0.25 MG Tablet PO ONE (13:54)
[2017-10-14 09:25] LABS: Anion Gap 7 meq/L (5-15); Blood Urea Nitrogen 16 mg/dL (7-18); Calcium 9.1 mg/dL (8.5-10.1); Carbon Dioxide 32.4 meq/L (21.0-32.0); Chloride 89 meq/L (98-107); Glomerular Filtration Rate Greater Than 89 mL/min (>89); Glucose,Random 89 mg/dL (74-106); Magnesium 1.4 mg/dL (1.5-2.5); Potassium 3.1 meq/L (3.5-5.1); Sodium 128 meq/L (136-145)
--- NOTE | 2017-10-14 16:10 | P.PNIM ---
Subjective Interval history: Patient is currently nonverbal and unable to give history due to encephalopathy. Daughter is at bedside and reports that her mother's baseline status was functional. No evidence of pain. Physical Exam Vital signs: Vital Signs 10/13/17 16:07 10/13/17 16:30 10/13/17 20:00 Temperature 97.9 F 97.6 F Pulse Rate 79 96 H 101 H Respiratory Rate 20 12 18 Blood Pressure 159/78 H 136/85 133/99 H Pulse Oximetry 95 98 10/13/17 23:45 10/14/17 00:42 10/14/17 01:00 Temperature 97.8 F Pulse Rate 103 H 95 H 99 H Respiratory Rate 18 20 Blood Pressure 173/99 H 125/84 Pulse Oximetry 96 95 10/14/17 04:00 10/14/17 08:00 10/14/17 09:20 Temperature 97.9 F 97.2 F L Pulse Rate 96 H 104 H 96 H Respiratory Rate 18 18 Blood Pressure 136/82 144/87 H Pulse Oximetry 95 93 L 10/14/17 12:00 10/14/17 15:21 Temperature Pulse Rate 74 75 Respiratory Rate Blood Pressure 189/84 H Pulse Oximetry Intake & Output 10/13/17 10/14/17 10/14/17 18:59 06:59 18:59 Intake Total 0 / 0 600 / 600 1000 / 1000 Balance 0 / 0 600 / 600 1000 / 1000 Weight 69.1 kg 69.2 kg Intake: IV 0 / 0 600 / 600 1000 / 1000 NS + KCl 20 mEq Inj 1,000 ML @ 1000 / 1000 60 mls/hr IV.CONT .[id number] [facility] Rx#:[id number] NS Inj 500 ML @ Wide Open IV. 0 / 0 500 / 500 SIG BOLUS ONE Rx#:[id number] Rocephin Inj 1,000 MG In NS Inj 0 / 0 100 / 100 100 ML @ 200 mls/hr IV.SIG ONCE ONE Rx#:[id number] Other: Post Void Residual 1 # Voids 1 1 Weight On Admission 69.1 kg Narrative: GENERAL: NAD, A&Ox0 HEAD: Normocephalic. NECK: Supple, trachea midline. No lymphadenopathy. EYES: No scleral icterus. No injection or drainage. CARDIOVASCULAR: Regular rate and rhythm without murmurs, gallops, or rubs. RESPIRATORY: Breath sounds equal bilaterally. No accessory muscle use. GASTROINTESTINAL: Abdomen soft, non-tender, nondistended. MUSCULOSKELETAL: No cyanosis, or edema. Patient is in restraints. SKIN: Warm and dry. NEURO: No focal neurological deficits. Results - Labs CBC & Chem 7: 10/13/17 11:20 10/14/17 07:19 Laboratory Results - last 24 hr 10/14/17 10/14/17 07:19 10:39 Sodium 128 L Potassium 3.1 L Chloride 89 L D Carbon Dioxide 32.4 H Anion Gap 7 BUN 16 Creatinine 0.61 Estimated GFR Greater than 89 POC Glucose 113 H Random Glucose 89 Calcium 9.1 Magnesium 1.4 L Microbiology 10/13/17 11:20 Catheterized Urine Urine Culture - Preliminary No growth in 24 hours Assessment and Plan - Assessment (1) Acute metabolic encephalopathy Code(s): G93.41 - Metabolic encephalopathy Status: Acute (2) Acute hyponatremia Code(s): E87.1 - Hypo-osmolality and hyponatremia Status: Acute (3) Acute hypokalemia Code(s): E87.6 - Hypokalemia Status: Acute - Plan 86-year-old female admitted secondary to hyponatremia, hypokalemia, and encephalopathy. Severe hyponatremia Continue hydration with normal saline and follow sodium levels Monitor mental status for improvement Paroxysmal A. fib Emergency A. fib RVR Likely related to metabolic disturbances continue Eliquis As needed enalapril Diltiazem added for RVR Hypokalemia Monitor and replace as needed Metabolic encephalopathy Continue neuro checks Follow for improvement COPD No exacerbation Continue duo nebs Hyperlipidemia Continue present treatment Follow as an outpatient DVT prophylaxis Eliquis
[2017-10-14] MEDS ORDERED: dilTIAZem 30 MG Tablet PO ONE (16:30)
[2017-10-14 18:03] LABS: Calcium 9.5 mg/dL (8.5-10.1); Potassium 4.1 meq/L (3.5-5.1)
--- NOTE | 2017-10-15 00:30 | ECG ---
Date Performed: 10/13/2017 Time Performed: 10:44:47 PTAGE: 86 years EKG: ATRIAL FIBRILLATION POSSIBLE ANTERIOR MYOCARDIAL INFARCTION ABNORMAL ECG Since the PREVIOUS TRACING , no significant change noted DOCTOR: Denzel Gonzales Interpretating Date/Time 10/15/2017 00:30:12
[2017-10-15 07:55] LABS: Baso % (Auto) 0.5 % (0.0-2.0); Eos % (Auto) 0.5 % (0.0-4.0); Hematocrit 33.5 % (35.0-46.0); Hemoglobin 11.3 gm/dL (11.6-15.3); Lymph # (Auto) 0.6 th/mm3 (1.0-4.8); Lymph % (Auto) 8.3 % (9.0-44.0); Mean Corpuscular HGB Conc 33.6 % (32.0-36.0); Mean Corpuscular Hemoglobin 31.2 pg (27.0-34.0); Mean Corpuscular Volume 92.9 fL (80.0-100.0); Mono # (Auto) 0.9 th/mm3 (0.0-0.9); Mono % (Auto) 11.9 % (0.0-8.0); Neut % (Auto) 78.8 % (16.0-70.0); Platelet Count 180 th/mm3 (150-450); Red Blood Count 3.61 mil/mm3 (4.00-5.30); Red Cell Distribution Width 16.1 % (11.6-17.2); White Blood Count 7.5 th/mm3 (4.0-11.0)
[2017-10-15 08:18] LABS: Albumin 3.5 g/dL (3.4-5.0); Anion Gap 12 meq/L (5-15); Aspartate Aminotransferase 52 U/L (15-37); Blood Urea Nitrogen 16 mg/dL (7-18); Chloride 93 meq/L (98-107); Glomerular Filtration Rate Greater Than 89 mL/min (>89); Glucose,Random 72 mg/dL (74-106); Potassium 3.5 meq/L (3.5-5.1); Sodium 133 meq/L (136-145)
[2017-10-15 08:19] LABS: Alanine Aminotransferase 34 U/L (10-53)
[2017-10-15 08:21] LABS: Alkaline Phosphatase 233 U/L (45-117); Total Protein 6.8 g/dL (6.4-8.2)
--- NOTE | 2017-10-15 14:39 | P.PNIM ---
Subjective Interval history: Sodium level improved at 133 today. Patient is now alert, but not oriented. No pain noticed. Physical Exam Vital signs: Vital Signs 10/14/17 15:21 10/14/17 16:00 10/14/17 17:08 Temperature 97.9 F Pulse Rate 75 101 H 127 H Respiratory Rate Blood Pressure 136/89 Pulse Oximetry 10/14/17 20:00 10/15/17 00:00 10/15/17 04:00 Temperature 97.8 F 97.9 F 98.0 F Pulse Rate 71 69 70 Respiratory Rate 16 16 14 Blood Pressure 120/62 119/60 118/60 Pulse Oximetry 96 95 95 10/15/17 04:54 10/15/17 08:00 10/15/17 12:00 Temperature 97.8 F 98.2 F Pulse Rate 126 H 97 H 103 H Respiratory Rate 14 16 Blood Pressure 141/79 H 166/92 H Pulse Oximetry 93 L 96 Intake & Output 10/14/17 10/15/17 10/15/17 18:59 06:59 18:59 Intake Total 1000 / 1000 1000 / 1000 Output Total 500 / 500 Balance 500 / 500 1000 / 1000 Intake: IV 1000 / 1000 1000 / 1000 NS + KCl 20 mEq Inj 1,000 ML @ 1000 / 1000 1000 / 1000 60 mls/hr IV.CONT .[id number] NADJA Rx#:[id number] Output: Urine 500 / 500 Other: # Bowel Movements 0 Narrative: GENERAL: NAD, A&Ox0 HEAD: Normocephalic. NECK: Supple, trachea midline. No lymphadenopathy. EYES: No scleral icterus. No injection or drainage. CARDIOVASCULAR: Regular rate and rhythm without murmurs, gallops, or rubs. RESPIRATORY: Breath sounds equal bilaterally. No accessory muscle use. GASTROINTESTINAL: Abdomen soft, non-tender, nondistended. MUSCULOSKELETAL: No cyanosis, or edema. Patient is in restraints. SKIN: Warm and dry. NEURO: No focal neurological deficits. Results - Labs CBC & Chem 7: 10/15/17 07:17 10/15/17 07:10 Laboratory Results - last 24 hr 10/14/17 10/15/17 10/15/17 17:05 07:10 07:17 WBC 7.5 RBC 3.61 L Hgb 11.3 L Hct 33.5 L MCV 92.9 MCH 31.2 MCHC 33.6 RDW 16.1 Plt Count 180 MPV 8.0 Neut % (Auto) 78.8 H Lymph % (Auto) 8.3 L [place] % (Auto) 11.9 H Eos % (Auto) 0.5 Baso % (Auto) 0.5 Neut # (Auto) 6.0 Lymph # (Auto) 0.6 L [place] # (Auto) 0.9 Eos # (Auto) 0.0 Baso # (Auto) 0.0 WBC Differential . Differential Comment Auto diff final Sodium 130 L 133 L Potassium 4.1 D 3.5 Chloride 91 L 93 L Carbon Dioxide 31.0 28.0 Anion Gap 8 12 BUN 16 16 Creatinine 0.73 0.57 Estimated GFR 76 L Greater than 89 Random Glucose 99 72 L Calcium 9.5 9.0 Total Bilirubin 0.7 AST 52 H ALT 34 Alkaline Phosphatase 233 H Total Protein 6.8 D Albumin 3.5 Microbiology 10/13/17 11:20 Catheterized Urine Urine Culture - Preliminary Immature growth - reincubate Assessment and Plan - Assessment (1) Acute metabolic encephalopathy Code(s): G93.41 - Metabolic encephalopathy Status: Acute (2) Acute hyponatremia Code(s): E87.1 - Hypo-osmolality and hyponatremia Status: Acute (3) Acute hypokalemia Code(s): E87.6 - Hypokalemia Status: Acute - Plan 86-year-old female admitted secondary to hyponatremia, hypokalemia, and encephalopathy. Improvement in lethargy. Still disoriented x3. Continue IV with NS. Severe hyponatremia Continue hydration with normal saline and follow sodium levels Monitor mental status for improvement Paroxysmal A. fib Emergency A. fib RVR Likely related to metabolic disturbances continue Eliquis As needed enalapril Diltiazem added for RVR Hypokalemia Monitor and replace as needed Metabolic encephalopathy Continue neuro checks Follow for improvement COPD No exacerbation Continue duo nebs Hyperlipidemia Continue present treatment Follow as an outpatient DVT prophylaxis Eliquis
[2017-10-15] MEDS ORDERED: Sod Chloride 0.9% Inj 1,000 ML IV.CONT SCH (14:45)
[2017-10-15] MEDS: Dextrose 5%/NaCl 0.9% Inj 1,000 ML IV.CONT SCH (19:42)
--- NOTE | 2017-10-16 07:49 | MG ---
cc: David Singh MD EEG RECORD NUMBER: [id number] INDICATIONS: An 86-year-old woman COPD, A. Fib. MEDICATIONS: Ativan. DESCRIPTION: The recording shows some diffuse slowing in the background about 3 Hz with superimposed beta rhythms throughout the entire recording. No focal abnormality was noted. No seizure activity was seen. Photic stimulation was performed without significant posterior driving. IMPRESSION: Diffuse 3 Hz slowing consistent with a moderate to moderately severe diffuse encephalopathy, but no focal abnormality was noted. No seizure activity was seen. David Singh MD DJM/DL , 07:35 AM , 07:48 AM
[2017-10-16 08:50] LABS: Baso % (Auto) 0.5 % (0.0-2.0); Eos # (Auto) 0.2 th/mm3 (0.0-0.4); Eos % (Auto) 2.3 % (0.0-4.0); Hematocrit 29.9 % (35.0-46.0); Hemoglobin 10.7 gm/dL (11.6-15.3); Lymph # (Auto) 0.6 th/mm3 (1.0-4.8); Lymph % (Auto) 9.5 % (9.0-44.0); Mean Corpuscular HGB Conc 35.7 % (32.0-36.0); Mean Corpuscular Hemoglobin 32.4 pg (27.0-34.0); Mean Corpuscular Volume 90.8 fL (80.0-100.0); Mean Platelet Volume 7.8 fL (7.0-11.0); Mono # (Auto) 0.7 th/mm3 (0.0-0.9); Mono % (Auto) 10.9 % (0.0-8.0); Neut # (Auto) 5.1 th/mm3 (1.8-7.7); Neut % (Auto) 76.8 % (16.0-70.0); Platelet Count 162 th/mm3 (150-450); Red Blood Count 3.29 mil/mm3 (4.00-5.30); Red Cell Distribution Width 15.8 % (11.6-17.2); White Blood Count 6.7 th/mm3 (4.0-11.0)
[2017-10-16 09:18] LABS: Albumin 3.3 g/dL (3.4-5.0); Anion Gap 7 meq/L (5-15); Aspartate Aminotransferase 42 U/L (15-37); Blood Urea Nitrogen 15 mg/dL (7-18); Calcium 8.9 mg/dL (8.5-10.1); Carbon Dioxide 29.7 meq/L (21.0-32.0); Chloride 98 meq/L (98-107); Glomerular Filtration Rate Greater Than 89 mL/min (>89); Glucose,Random 118 mg/dL (74-106); Sodium 135 meq/L (136-145)
[2017-10-16 09:19] LABS: Alanine Aminotransferase 26 U/L (10-53)
[2017-10-16 09:22] LABS: Alkaline Phosphatase 199 U/L (45-117); Total Protein 6.2 g/dL (6.4-8.2)
[2017-10-16] MEDS: Dextrose 5%/NaCl 0.9% Inj 1,000 ML IV.CONT SCH (10:08)
--- NOTE | 2017-10-16 12:13 | P.PNIM ---
Subjective Interval history: Since yesterday patient continues to improve. Sodium level has increased to 135. Patient's mental status is improved compared to previous day. She is now alert and able to talk orientation is not fully back to baseline. Physical Exam Vital signs: Vital Signs 10/15/17 16:00 10/15/17 17:37 10/15/17 20:00 Temperature 98.1 F 98.6 F Pulse Rate 107 H 92 H 106 H Respiratory Rate 18 18 Blood Pressure 158/95 H 135/92 H Pulse Oximetry 93 L 93 L 10/16/17 00:00 10/16/17 02:47 10/16/17 04:00 Temperature 98.3 F 98.1 F Pulse Rate 87 94 H Respiratory Rate 18 20 18 Blood Pressure 138/82 161/99 H Pulse Oximetry 94 L 92 L 10/16/17 08:00 10/16/17 09:00 Temperature 98.1 F Pulse Rate 97 H 86 Respiratory Rate 18 Blood Pressure 132/86 Pulse Oximetry 92 L Intake & Output 10/15/17 10/16/17 10/16/17 18:59 06:59 18:59 Intake Total 1000 / 1000 1000 / 1000 Output Total 1000 / 1000 500 / 500 300 / 300 Balance -1000 / -1000 500 / 500 700 / 700 Intake: IV 1000 / 1000 1000 / 1000 D5W/Normal Saline Inj 1,000 ML 1000 / 1000 @ 84 mls/hr IV.CONT .[id number] NADJA Rx#:[id number] NS Inj 1,000 ML @ 84 mls/hr IV. 1000 / 1000 CONT .[id number] NADJA Rx#:[id number] Output: Urine 1000 / 1000 500 / 500 300 / 300 Narrative: GENERAL: NAD, A&Ox1 HEAD: Normocephalic. NECK: Supple, trachea midline. No lymphadenopathy. EYES: No scleral icterus. No injection or drainage. CARDIOVASCULAR: Regular rate and rhythm without murmurs, gallops, or rubs. RESPIRATORY: Breath sounds equal bilaterally. No accessory muscle use. GASTROINTESTINAL: Abdomen soft, non-tender, nondistended. MUSCULOSKELETAL: No cyanosis, or edema. Patient is in restraints. SKIN: Warm and dry. NEURO: No focal neurological deficits. Results - Labs CBC & Chem 7: 10/16/17 08:13 10/16/17 08:13 Laboratory Results - last 24 hr 10/13/17 10/15/17 10/16/17 11:20 17:13 08:13 WBC 6.7 RBC 3.29 L Hgb 10.7 L Hct 29.9 L MCV 90.8 MCH 32.4 MCHC 35.7 RDW 15.8 Plt Count 162 MPV 7.8 Neut % (Auto) 76.8 H Lymph % (Auto) 9.5 [place] % (Auto) 10.9 H Eos % (Auto) 2.3 Baso % (Auto) 0.5 Neut # (Auto) 5.1 Lymph # (Auto) 0.6 L [place] # (Auto) 0.7 Eos # (Auto) 0.2 Baso # (Auto) 0.0 WBC Differential . Differential Comment Auto diff final Sodium Potassium Chloride Carbon Dioxide Anion Gap BUN Creatinine Estimated GFR POC Glucose 73 Random Glucose Calcium Total Bilirubin AST ALT Alkaline Phosphatase Total Protein Albumin Urine Color Yellow Urine Clarity Hazy H Urine pH 6.0 Ur Specific [place] 1.012 Urine Protein 30 H Urine Glucose (UA) Negative Urine Ketones Negative Urine Occult Blood Negative Urine Nitrate Negative Urine Bilirubin Negative Urine Urobilinogen Less than 2 Ur Leukocyte Esterase Negative Urine RBC 1 Urine WBC 1 Urine Bacteria Rare H Hyaline Casts 3 Micro UA Comment Cath-culture ind Urine Culture Comments Cath-cult indicated 10/16/17 10/16/17 08:13 11:37 WBC RBC Hgb Hct MCV MCH MCHC RDW Plt Count MPV Neut % (Auto) Lymph % (Auto) [place] % (Auto) Eos % (Auto) Baso % (Auto) Neut # (Auto) Lymph # (Auto) [place] # (Auto) Eos # (Auto) Baso # (Auto) WBC Differential Differential Comment Sodium 135 L Potassium 3.0 L Chloride 98 Carbon Dioxide 29.7 Anion Gap 7 BUN 15 Creatinine 0.59 Estimated GFR Greater than 89 POC Glucose 123 H Random Glucose 118 H Calcium 8.9 Total Bilirubin 0.6 AST 42 H ALT 26 Alkaline Phosphatase 199 H Total Protein 6.2 L D Albumin 3.3 L Urine Color Urine Clarity Urine pH Ur Specific [place] Urine Protein Urine Glucose (UA) Urine Ketones Urine Occult Blood Urine Nitrate Urine Bilirubin Urine Urobilinogen Ur Leukocyte Esterase Urine RBC Urine WBC Urine Bacteria Hyaline Casts Micro UA Comment Urine Culture Comments Microbiology 10/13/17 11:20 Catheterized Urine Urine Culture - Preliminary Group D Enterococcus Assessment and Plan - Assessment (1) Acute metabolic encephalopathy Code(s): G93.41 - Metabolic encephalopathy Status: Acute (2) Acute hyponatremia Code(s): E87.1 - Hypo-osmolality and hyponatremia Status: Acute (3) Acute hypokalemia Code(s): E87.6 - Hypokalemia Status: Acute - Plan 86-year-old female admitted secondary to hyponatremia, hypokalemia, and encephalopathy. Improvement in orientation today. No recurrence of lethargy. Continue IV with NS and D5. Continue monitoring electrolytes. MRI pending. Severe hyponatremia Continue hydration with normal saline and follow sodium levels Monitor mental status for improvement Paroxysmal A. fib Emergency A. fib RVR Likely related to metabolic disturbances continue Eliquis As needed enalapril Diltiazem added for RVR Hypokalemia Monitor and replace as needed Metabolic encephalopathy Continue neuro checks Follow for improvement COPD No exacerbation Continue duo nebs Hyperlipidemia Continue present treatment Follow as an outpatient DVT prophylaxis Eliquis
--- NOTE | 2017-10-16 17:02 | CT ---
EXAM DATE: 10/16/2017 4:39 PM EDT AGE/SEX: 86 years / Female INDICATIONS: Altered mental status. CLINICAL DATA: This is the patient's initial encounter. Patient reports that signs and symptoms have been present for 1 day and indicates a pain score of Nonresponsive. MEDICAL/SURGICAL HISTORY: Hypertension. Cardiovascular disease. Chronic obstructive pulmonary dis ease. Tonsillectomy. RADIATION DOSE: 37.74 CTDI (mGy) COMPARISON: [facility] – [place], CT HEAD W/O CONTRAST, 10/13/2017. . TECHNIQUE: CT of the head without contrast. Using automated exposure control and adjustment of the mA and/or kV according to patient size, radiation dose was kept as low as reasonably achievable to ob tain optimal diagnostic quality images. DICOM format image data is available electronically for revi ew and comparison. FINDINGS: Cerebrum: The ventricles are normal for age with moderate atrophic change with sulcal and ventricula r prominence. No evidence of midline shift, mass lesion, hemorrhage or acute infarction. No extraaxi al fluid collections are seen. Posterior Fossa: The cerebellum and brainstem are intact. The 4th ventricle is midline. The cerebe llopontine angle is unremarkable. Extracranial: The visualized portion of the orbits is intact. Skull: The calvaria is intact. No evidence of skull fracture. 1. Stable noncontrast head CT with no evidence of hemorrhage or mass effect. . Electronically signed by: Sabino Gudino MD 10/16/2017 5:01 PM EDT
[2017-10-17] MEDS: Dextrose 5%/NaCl 0.9% Inj 1,000 ML IV.CONT SCH ×2 (07:15→07:43)
[2017-10-17 08:27] LABS: Albumin 3.1 g/dL (3.4-5.0); Anion Gap 9 meq/L (5-15); Aspartate Aminotransferase 37 U/L (15-37); Blood Urea Nitrogen 10 mg/dL (7-18); Calcium 8.6 mg/dL (8.5-10.1); Chloride 100 meq/L (98-107); Glomerular Filtration Rate Greater Than 89 mL/min (>89); Glucose,Random 106 mg/dL (74-106); Potassium 3.1 meq/L (3.5-5.1); Sodium 137 meq/L (136-145)
[2017-10-17 08:29] LABS: Alanine Aminotransferase 24 U/L (10-53)
[2017-10-17 08:30] LABS: Alkaline Phosphatase 206 U/L (45-117); Total Protein 6.2 g/dL (6.4-8.2)
--- NOTE | 2017-10-17 12:09 | P.PNIM ---
Subjective Interval history: Sodium levels have corrected. Sodium levels now within normal limits. Potassium level remains low today and replacements are provided. Mental status is improving but not yet back to baseline. Repeat brain imaging shows no evidence of CVA. Physical Exam Vital signs: Vital Signs 10/16/17 16:00 10/16/17 21:44 10/17/17 00:00 Temperature 97.8 F 97.8 F 98.1 F Pulse Rate 84 102 H 86 Respiratory Rate 18 18 18 Blood Pressure 130/84 156/80 H 165/70 H Pulse Oximetry 96 92 L 95 10/17/17 04:00 10/17/17 08:00 10/17/17 09:20 Temperature 98.7 F 97.5 F L Pulse Rate 63 99 H Respiratory Rate 18 20 Blood Pressure 138/89 146/92 H 146/102 H Pulse Oximetry 94 L 96 10/17/17 10:17 Temperature Pulse Rate 81 Respiratory Rate Blood Pressure Pulse Oximetry Intake & Output 10/16/17 10/17/17 10/17/17 18:59 06:59 18:59 Intake Total 1000 / 1000 Output Total 300 / 300 Balance 700 / 700 Intake: IV 1000 / 1000 D5W/Normal Saline Inj 1,000 ML 1000 / 1000 @ 84 mls/hr IV.CONT .[id number] [facility] Rx#:[id number] Output: Urine 300 / 300 Other: Bladder Irrigation Fluid - Amount Instilled Female External 1,100 Narrative: GENERAL: NAD, A&Ox1 HEAD: Normocephalic. NECK: Supple, trachea midline. No lymphadenopathy. EYES: No scleral icterus. No injection or drainage. CARDIOVASCULAR: Regular rate and rhythm without murmurs, gallops, or rubs. RESPIRATORY: Breath sounds equal bilaterally. No accessory muscle use. GASTROINTESTINAL: Abdomen soft, non-tender, nondistended. MUSCULOSKELETAL: No cyanosis, or edema. Patient is in restraints. SKIN: Warm and dry. NEURO: No focal neurological deficits. - Urinary Catheter Management Female External Cath placed during this visit: no Results - Labs CBC & Chem 7: 10/16/17 08:13 10/17/17 07:36 Laboratory Results - last 24 hr 10/16/17 10/17/17 14:11 07:36 Sodium 137 Potassium 3.1 L Chloride 100 Carbon Dioxide 28.0 Anion Gap 9 BUN 10 Creatinine 0.48 L Estimated GFR Greater than 89 POC Glucose 116 H Random Glucose 106 Calcium 8.6 Total Bilirubin 0.5 AST 37 ALT 24 Alkaline Phosphatase 206 H Total Protein 6.2 L Albumin 3.1 L Microbiology 10/13/17 11:20 Catheterized Urine Urine Culture - Final Enterococcus faecalis - Imaging Impressions Head CT 10/16/17 00:00 CONCLUSION: Assessment and Plan - Assessment (1) Acute metabolic encephalopathy Code(s): G93.41 - Metabolic encephalopathy Status: Acute (2) Acute hyponatremia Code(s): E87.1 - Hypo-osmolality and hyponatremia Status: Acute (3) Acute hypokalemia Code(s): E87.6 - Hypokalemia Status: Acute - Plan 86-year-old female admitted secondary to hyponatremia, hypokalemia, and encephalopathy. Hyponatremia improved. Potassium level is low and will be corrected. Discontinue IV with NS and D5. Continue monitoring electrolytes. MRI pending. Severe hyponatremia Continue hydration with normal saline and follow sodium levels Monitor mental status for improvement Paroxysmal A. fib Emergency A. fib RVR Likely related to metabolic disturbances continue Eliquis As needed enalapril Diltiazem added for RVR Hypokalemia Monitor and replace as needed Metabolic encephalopathy Continue neuro checks Follow for improvement COPD No exacerbation Continue duo nebs Hyperlipidemia Continue present treatment Follow as an outpatient DVT prophylaxis Eliquis
[2017-10-17] MEDS: Potassium Chlor 10 mEq Premix 10 MEQ/100 ML PIGGYBACK IV.SIG SCH (22:21)
[2017-10-18] MEDS: Potassium Chlor 10 mEq Premix 10 MEQ/100 ML PIGGYBACK IV.SIG SCH ×4 (03:29→05:52)
[2017-10-18 08:50] LABS: Baso % (Auto) 0.7 % (0.0-2.0); Eos # (Auto) 0.1 th/mm3 (0.0-0.4); Eos % (Auto) 1.7 % (0.0-4.0); Hematocrit 32.6 % (35.0-46.0); Lymph # (Auto) 0.7 th/mm3 (1.0-4.8); Lymph % (Auto) 12.8 % (9.0-44.0); Mean Corpuscular HGB Conc 33.9 % (32.0-36.0); Mean Corpuscular Hemoglobin 31.6 pg (27.0-34.0); Mean Corpuscular Volume 93.4 fL (80.0-100.0); Mean Platelet Volume 7.9 fL (7.0-11.0); Mono # (Auto) 0.6 th/mm3 (0.0-0.9); Mono % (Auto) 10.9 % (0.0-8.0); Neut # (Auto) 4.2 th/mm3 (1.8-7.7); Neut % (Auto) 73.9 % (16.0-70.0); Platelet Count 176 th/mm3 (150-450); Red Blood Count 3.49 mil/mm3 (4.00-5.30); Red Cell Distribution Width 15.9 % (11.6-17.2); White Blood Count 5.7 th/mm3 (4.0-11.0)
[2017-10-18 09:05] LABS: Albumin 3.3 g/dL (3.4-5.0); Anion Gap 9 meq/L (5-15); Blood Urea Nitrogen 10 mg/dL (7-18); Carbon Dioxide 27.5 meq/L (21.0-32.0); Chloride 103 meq/L (98-107); Glomerular Filtration Rate Greater Than 89 mL/min (>89); Glucose,Random 87 mg/dL (74-106); Magnesium 1.2 mg/dL (1.5-2.5); Potassium 4.1 meq/L (3.5-5.1); Sodium 139 meq/L (136-145)
[2017-10-18 09:06] LABS: Alanine Aminotransferase 24 U/L (10-53); Phosphorus 2.8 mg/dL (2.5-4.9)
[2017-10-18 09:09] LABS: Alkaline Phosphatase 220 U/L (45-117); Aspartate Aminotransferase 35 U/L (15-37); Total Protein 6.5 g/dL (6.4-8.2)
--- NOTE | 2017-10-18 10:10 | P.PNIM ---
Subjective Interval history: Slow improvement in mental status since admit. No CVA. Patient is in restraints this morning. Sodium level has corrected. Physical Exam Vital signs: Vital Signs 10/17/17 10:17 10/17/17 12:00 10/17/17 12:15 Temperature 97.1 F L Pulse Rate 81 95 H 93 H Respiratory Rate 20 Blood Pressure 130/70 Pulse Oximetry 95 10/17/17 16:00 10/17/17 16:15 10/17/17 20:00 Temperature 97.5 F L 98.6 F Pulse Rate 104 H 87 96 H Respiratory Rate 20 18 Blood Pressure 141/80 H 162/90 H Pulse Oximetry 95 95 10/18/17 00:00 10/18/17 04:00 Temperature 98.1 F 98.5 F Pulse Rate 110 H 104 H Respiratory Rate 18 18 Blood Pressure 165/102 H 153/86 H Pulse Oximetry 95 95 Intake & Output 10/17/17 10/18/17 10/18/17 18:59 06:59 18:59 Intake Total 1120 / 1120 200 / 200 Output Total 5 / 5 Balance 1115 / 1115 200 / 200 Weight 68.6 kg Intake: IV 1000 / 1000 200 / 200 D5W/Normal Saline Inj 1,000 ML 1000 / 1000 @ 84 mls/hr IV.CONT .[id number] NADJA Rx#:[id number] KCl 10 mEq Premix Inj 10 meq In 200 / 200 100 ml @ 100 mls/hr IV.SIG Q1H NADJA Rx#:[id number] Oral 120 / 120 Output: Urine 5 / 5 Narrative: GENERAL: NAD, A&Ox1 HEAD: Normocephalic. NECK: Supple, trachea midline. No lymphadenopathy. EYES: No scleral icterus. No injection or drainage. CARDIOVASCULAR: Regular rate and rhythm without murmurs, gallops, or rubs. RESPIRATORY: Breath sounds equal bilaterally. No accessory muscle use. GASTROINTESTINAL: Abdomen soft, non-tender, nondistended. MUSCULOSKELETAL: No cyanosis, or edema. Patient is in restraints. SKIN: Warm and dry. NEURO: No focal neurological deficits. - Urinary Catheter Management Female External Cath placed during this visit: no Results - Labs CBC & Chem 7: 10/18/17 07:19 10/18/17 07:19 Laboratory Results - last 24 hr 10/17/17 10/18/17 10/18/17 15:33 07:19 07:19 WBC 5.7 RBC 3.49 L Hgb 11.0 L Hct 32.6 L MCV 93.4 MCH 31.6 MCHC 33.9 RDW 15.9 Plt Count 176 MPV 7.9 Neut % (Auto) 73.9 H Lymph % (Auto) 12.8 [place] % (Auto) 10.9 H Eos % (Auto) 1.7 Baso % (Auto) 0.7 Neut # (Auto) 4.2 Lymph # (Auto) 0.7 L [place] # (Auto) 0.6 Eos # (Auto) 0.1 Baso # (Auto) 0.0 WBC Differential . Differential Comment Auto diff final Sodium 139 Potassium 3.4 L 4.1 Chloride 103 Carbon Dioxide 27.5 Anion Gap 9 BUN 10 Creatinine 0.51 Estimated GFR Greater than 89 Random Glucose 87 Calcium 9.0 Phosphorus 2.8 Magnesium 1.2 L Total Bilirubin 0.6 AST 35 ALT 24 Alkaline Phosphatase 220 H Total Protein 6.5 Albumin 3.3 L Microbiology 10/13/17 11:20 Catheterized Urine Urine Culture - Final Enterococcus faecalis Assessment and Plan - Assessment (1) Acute metabolic encephalopathy Code(s): G93.41 - Metabolic encephalopathy Status: Acute (2) Acute hyponatremia Code(s): E87.1 - Hypo-osmolality and hyponatremia Status: Acute (3) Acute hypokalemia Code(s): E87.6 - Hypokalemia Status: Acute - Plan 86-year-old female admitted secondary to hyponatremia, hypokalemia, and encephalopathy. Hyponatremia improved. Potassium level has also normalized. Continue to follow electrolytes. Continue to monitor for improvement in mental status prior to discharge. Severe hyponatremia Continue hydration with normal saline and follow sodium levels Monitor mental status for improvement Paroxysmal A. fib Emergency A. fib RVR Likely related to metabolic disturbances continue Eliquis As needed enalapril Diltiazem added for RVR Hypokalemia Monitor and replace as needed Metabolic encephalopathy Continue neuro checks Follow for improvement COPD No exacerbation Continue duo nebs Hyperlipidemia Continue present treatment Follow as an outpatient DVT prophylaxis Eliquis
[2017-10-19 09:16] LABS: Baso % (Auto) 0.7 % (0.0-2.0); Eos # (Auto) 0.1 th/mm3 (0.0-0.4); Eos % (Auto) 2.1 % (0.0-4.0); Hematocrit 32.5 % (35.0-46.0); Hemoglobin 11.1 gm/dL (11.6-15.3); Lymph # (Auto) 0.9 th/mm3 (1.0-4.8); Lymph % (Auto) 14.1 % (9.0-44.0); Mean Corpuscular Hemoglobin 31.3 pg (27.0-34.0); Mean Corpuscular Volume 92.1 fL (80.0-100.0); Mean Platelet Volume 7.6 fL (7.0-11.0); Mono # (Auto) 0.8 th/mm3 (0.0-0.9); Mono % (Auto) 11.8 % (0.0-8.0); Neut # (Auto) 4.6 th/mm3 (1.8-7.7); Neut % (Auto) 71.3 % (16.0-70.0); Platelet Count 189 th/mm3 (150-450); Red Blood Count 3.53 mil/mm3 (4.00-5.30); Red Cell Distribution Width 15.9 % (11.6-17.2); White Blood Count 6.5 th/mm3 (4.0-11.0)
[2017-10-19 09:33] LABS: Albumin 3.3 g/dL (3.4-5.0); Anion Gap 8 meq/L (5-15); Aspartate Aminotransferase 30 U/L (15-37); Blood Urea Nitrogen 14 mg/dL (7-18); Calcium 8.8 mg/dL (8.5-10.1); Carbon Dioxide 28.2 meq/L (21.0-32.0); Chloride 102 meq/L (98-107); Glomerular Filtration Rate 88 mL/min (>89); Glucose,Random 81 mg/dL (74-106); Potassium 3.9 meq/L (3.5-5.1); Sodium 138 meq/L (136-145)
[2017-10-19 09:35] LABS: Alanine Aminotransferase 21 U/L (10-53)
[2017-10-19 09:37] LABS: Alkaline Phosphatase 208 U/L (45-117); Total Protein 6.5 g/dL (6.4-8.2)
[2017-10-19] MEDS ORDERED: Morphine Inj 4 MG/ML Vial IV.PUSH PRN ×2 (11:28)
[2017-10-19] MEDS ORDERED: oxyCODONE/Acetaminophen 10/325 Tablet PO PRN (11:28)
[2017-10-19] MEDS ORDERED: Naloxone Inj 0.4 MG/ML Vial IV.PUSH PRN (11:28)
[2017-10-19] MEDS ORDERED: Morphine Sulfate Inj 2 MG/ML Vial IV.PUSH PRN (11:28)
[2017-10-19] MEDS ORDERED: Acetaminophen 325 MG Tablet PO PRN (11:28)
--- NOTE | 2017-10-19 11:28 | P.PNIM ---
Subjective Interval history: PATIENT REMAINS CONFUSED NO CURRENT COMPLAINTS DW RN AND PT AND CM Has Enterococcus faecalis in the urine will start on ampicillin 500 p.o. every 6 as well as add Lactinex a.m. labs Discussed with RN and case management --patient not able to give good input Physical Exam Vital signs: Vital Signs 10/18/17 12:00 10/18/17 12:50 10/18/17 16:39 Temperature 98.1 F 98.7 F Pulse Rate 97 H 104 H 112 H Respiratory Rate 18 18 Blood Pressure 165/103 H 157/99 H Pulse Oximetry 93 L 95 10/18/17 20:00 10/19/17 00:00 10/19/17 04:00 Temperature 98.2 F 98.4 F 98.4 F Pulse Rate 104 H 107 H 112 H Respiratory Rate 18 18 18 Blood Pressure 174/115 H 161/96 H 169/90 H Pulse Oximetry 98 95 96 10/19/17 08:55 Temperature 98.7 F Pulse Rate 130 H Respiratory Rate 18 Blood Pressure 166/85 H Pulse Oximetry 95 Intake & Output 10/18/17 10/19/17 10/19/17 18:59 06:59 18:59 Output Total 200 / 200 600 / 600 Balance -200 / -200 -600 / -600 Weight 69.5 kg Output: Urine 200 / 200 600 / 600 Other: # Incontinent Voids 1 # Incontinent Bowel Movements 1 Narrative: GENERAL: NAD, A&Ox1 HEAD: Normocephalic. NECK: Supple, trachea midline. No lymphadenopathy. EYES: No scleral icterus. No injection or drainage. CARDIOVASCULAR: IRRegular rate and rhythm without murmurs, gallops, or rubs. S1 , S2 NO S3 OR S4 RESPIRATORY: Breath sounds equal bilaterally. No accessory muscle use. GASTROINTESTINAL: Abdomen soft, non-tender, nondistended. MUSCULOSKELETAL: No cyanosis, or edema. Patient is in restraints. SKIN: Warm and dry. NEURO: No focal neurological deficits. CONFUSED - Urinary Catheter Management Female External Cath placed during this visit: no Results - Labs CBC & Chem 7: 10/19/17 08:04 10/19/17 08:04 Laboratory Results - last 24 hr 10/19/17 10/19/17 08:04 08:04 WBC 6.5 RBC 3.53 L Hgb 11.1 L Hct 32.5 L MCV 92.1 MCH 31.3 MCHC 34.0 RDW 15.9 Plt Count 189 MPV 7.6 Neut % (Auto) 71.3 H Lymph % (Auto) 14.1 [place] % (Auto) 11.8 H Eos % (Auto) 2.1 Baso % (Auto) 0.7 Neut # (Auto) 4.6 Lymph # (Auto) 0.9 L [place] # (Auto) 0.8 Eos # (Auto) 0.1 Baso # (Auto) 0.0 WBC Differential . Differential Comment Auto diff final Sodium 138 Potassium 3.9 Chloride 102 Carbon Dioxide 28.2 Anion Gap 8 BUN 14 Creatinine 0.64 Estimated GFR 88 L Random Glucose 81 Calcium 8.8 Total Bilirubin 0.6 AST 30 ALT 21 Alkaline Phosphatase 208 H Total Protein 6.5 Albumin 3.3 L - Imaging Chest X-Ray 10/13/17 10:56 CONCLUSION: 1. Mild interval decrease in left effusion with mild residual. 2. Cardiomegaly. Head CT 10/13/17 10:56 CONCLUSION: 1. Exam is somewhat limited due to motion artifact. 2. Scattered, periventricular areas of diminished attenuation characteristic of some degree of chronic small vessel ischemic demyelination. 3. Nothing acute. Head CT 10/16/17 00:00 CONCLUSION: - Procedures NONE Assessment and Plan - Assessment (1) Acute metabolic encephalopathy Code(s): G93.41 - Metabolic encephalopathy Status: Acute (2) Acute hyponatremia Code(s): E87.1 - Hypo-osmolality and hyponatremia Status: Acute (3) Acute hypokalemia Code(s): E87.6 - Hypokalemia Status: Acute - Plan 86-year-old female admitted secondary to hyponatremia, hypokalemia, and encephalopathy. Hyponatremia improved. Potassium level has also normalized. Continue to follow electrolytes. Continue to monitor for improvement in mental status prior to discharge. Severe hyponatremia Continue hydration with normal saline and follow sodium levels Monitor mental status for improvement Paroxysmal A. fib Emergency A. fib RVR Likely related to metabolic disturbances continue Eliquis As needed enalapril Diltiazem added for RVR Hypokalemia Monitor and replace as needed Metabolic encephalopathy Continue neuro checks Follow for improvement COPD No exacerbation Continue duo nebs Hyperlipidemia Continue present treatment Follow as an outpatient DVT prophylaxis Eliquis Enterococcus faecalis from the urine will treat with ampicillin 500 p.o. every 6 and add Lactinex to repopulate her GI tract WILL NEED SNF Code Status: DNR Discussed Condition With: RN AND CM Discharge Planning: PENDING IMPROVEMENT
[2017-10-19] MEDS: Lactobacillus Acidophilus/L. Spores Tablet PO SCH ×2 (15:11→17:26)
[2017-10-19] MEDS ORDERED: dilTIAZem 60 MG Tablet PO ONE (16:54)
[2017-10-19] MEDS ORDERED: Digoxin Inj 500 MCG/2 ML Ampul IV.PUSH ONE (18:45)
--- NOTE | 2017-10-20 05:41 | CT ---
EXAM DATE: 10/20/2017 5:37 AM EDT AGE/SEX: 86 years / Female INDICATIONS: Neuro status change with seizures. CLINICAL DATA: This is the patient's initial encounter. Patient reports that signs and symptoms have been present for 1 day and indicates a pain score of Nonresponsive. MEDICAL/SURGICAL HISTORY: Cardiovascular disease. Hypertension. Chronic obstructive pulmonary dis ease. CVA None. RADIATION DOSE: 33.20 CTDI (mGy) COMPARISON: [facility] – [place], CT HEAD W/O CONTRAST, 10/16/2017. . TECHNIQUE: CT of the head without contrast. Using automated exposure control and adjustment of the mA and/or kV according to patient size, radiation dose was kept as low as reasonably achievable to ob tain optimal diagnostic quality images. DICOM format image data is available electronically for revi ew and comparison. FINDINGS: Cerebrum: Moderate diffuse cerebral atrophy. The ventricles are normal for degree of atrophy. Modera te periventricular white matter hypodensities. No evidence of midline shift, mass lesion, hemorrhage or acute infarction. No extraaxial fluid collections are seen. Posterior Fossa: The cerebellum and brainstem are intact. The 4th ventricle is midline. The cerebe llopontine angle is unremarkable. Extracranial: The visualized portion of the orbits is intact. Skull: The calvaria is intact. No evidence of skull fracture. CONCLUSION: 1. Stable senescent changes with periventricular white matter ischemic demyelination. 2. No acute intracranial abnormality. Report was called by Dr. Fishman to Dr. Singh at 0540 a.m.] Electronically signed by: Giovani Monique MD 10/20/2017 5:40 AM EDT
--- NOTE | 2017-10-20 05:50 | CT ---
EXAM DATE: 10/20/2017 5:45 AM EDT AGE/SEX: 86 years / Female INDICATIONS: Neuro status change with seizures. CLINICAL DATA: This is the patient's initial encounter. Patient reports that signs and symptoms have been present for 1 day and indicates a pain score of Nonresponsive. MEDICAL/SURGICAL HISTORY: Cardiovascular disease. Hypertension. Chronic obstructive pulmonary dis ease. CVa None. RADIATION DOSE: 27.41 CTDI (mGy) ; Combined studies COMPARISON: [facility] [place] HEAD W/O CONTRAST, 10/20/2017. . TECHNIQUE: Volumetric scanning was performed using a multi-row detector CT scanner during bolus infu genet of 70 ml Visipaque 320 (iodixanol) nonionic water-soluble contrast as a cumulative dose for mul tiple exams. The data was post processed with a variety of visualization algorithms including full volume maximum intensity projection, multi-planar sliding thin slab reformation, curved planar reform ation, and surface rendering techniques. Using automated exposure control and adjustment of the mA a nd/or kV according to patient size, radiation dose was kept as low as reasonably achievable to obtain optimal diagnostic quality images. DICOM format image data is available electronically for review a nd comparison. FINDINGS: Anterior Circulation: Intracranial Carotid Arteries: Calcified plaque in the distal intracranial carotid arteries with asso ciated mild stenosis. CHILO: There is no evidence for aneurysm, vessel truncation or stenosis, and no evidence for vascular m alformation. MCA: There is no evidence for aneurysm, vessel truncation or stenosis, and no evidence for vascular m alformation. Posterior Circulation: Distal Vertebral Arteries: Distal Vertebral arteries are symetrical and patent. Basilar Artery: There is no evidence for aneurysm, vessel truncation or stenosis, and no evidence for vascular malformation. TRANSPORTATION TECHNICIAN and Cerebellar Branches: There is no evidence for aneurysm, vessel truncation or stenosis, and no evidence for vascular malformation. CONCLUSION: 1. Unremarkable head CTA examination. 2. No evidence for large vessel occlusion or significant intracranial stenosis. Electronically signed by: Giovani Monique MD 10/20/2017 5:49 AM EDT
[2017-10-20 06:18] LABS: ABG Base Excess 2.9 mmol/L (-2-2); ABG PCO2 66 mmHg (38-42); ABG PO2 79 mmHg (61-120)
--- NOTE | 2017-10-20 06:25 | CT ---
EXAM DATE: 10/20/2017 6:19 AM EDT AGE/SEX: 86 years / Female INDICATIONS: Neuro status change with seizures. CLINICAL DATA: This is the patient's initial encounter. Patient reports that signs and symptoms have been present for 1 day and indicates a pain score of Nonresponsive. MEDICAL/SURGICAL HISTORY: Cardiovascular disease. Hypertension. Chronic obstructive pulmonary dis ease. CVA None. RADIATION DOSE: 27.41 CTDI (mGy) ; Combined studies COMPARISON: No prior exams available for comparison. TECHNIQUE: Volumetric scanning was performed using a multirow detector CT scanner during bolus infus ion of 70 ml Visipaque 320 (iodixanol) nonionic water-soluble contrast as a cumulative dose for mult iple exams. The data was postprocessed with a variety of visualization algorithms including full-vo lume maximum intensity projection, multiplanar sliding thin-slab reformation, curved-planar reformati on, and surface-rendering techniques. Using automated exposure control and adjustment of the mA and/ or kV according to patient size, radiation dose was kept as low as reasonably achievable to obtain op timal diagnostic quality images. DICOM format image data is available electronically for review and comparison. Percent stenosis is calculated using the diameter of the stenotic region over the diameter of the nor mal distal internal carotid artery. FINDINGS: Aortic Arch: There is a three-vessel origin of the great vessels from the aorta. No evidence of ost ial narrowing Right Carotid: The common carotid artery is intact. Minimal calcified plaque extending from the muse tid bulb to the origin of the internal carotid artery with resultant less than 10% stenosis. Internal carotid artery is otherwise patent to the skull base. The external carotid artery is intact. Left Carotid: The common carotid artery is intact. The carotid bulb has a normal configuration with out ulceration or narrowing. Minimal eccentric calcified plaque in the proximal internal carotid carrie ry without flow-limiting stenosis. Internal carotid artery is otherwise patent to the skull base. The external carotid artery is intact. Vertebrals: The vertebral arteries have a symmetric diameter. No stenotic lesions are seen. General Findings: Visualized lung apices demonstrate small bilateral, left greater than right pleural effusions. CONCLUSION: 1. No significant carotid artery flow-limiting stenosis. 2. Patent vertebral arteries bilaterally. 3. Small bilateral, left greater than right, pleural effusions. Electronically signed by: Giovani Monique MD 10/20/2017 6:24 AM EDT
--- NOTE | 2017-10-20 07:09 | P.PNADD ---
Addendum to Inpatient Note Reason for Addendum: Additional Documentation Additional information: Patient with acute neuro changes this morning; stroke alert called; Dr. Singh ordered imaging and ABG but said patient would not be a good candidate for tpa per nurse. The patient began to have multiple episodes of new onset seizure activity following her obtunded state with eye deviation; PRN Ativan was ordered to controlled acute seizure activity; seizure precautions ordered. ABG showed oxygen sat of 89%; 7.27 ph, and PCO2 66 indicating hypercapnic respiratory failure with hypoxemia. The patient has a DNR code status that was again verified with the patient's family - the daughter reiterated DNR and when asked specifically about intubation/mechanical ventilation, she indicated that this was against her mother's wishes. The patient was too sedated for Bipap. Supplemental oxygen via nc has seemed to manage the hypoxemia effectively for the time being. The patient's daughter is on her way to the hospital but has not arrived as of the time of this documentation. I have ordered a Keppra 1 gm loading dose and an EEG for seizure activity. Further treatment decisions should be made with the patient's daughter with consideration to patient's wishes.
[2017-10-20] MEDS ORDERED: levETIRAcetam 1000mg/100mL Inj 100 ML IV.SIG ONE (08:00)
[2017-10-20] MEDS: Sod Chloride 0.9% Inj 1,000 ML IV.CONT SCH (08:41)
[2017-10-20] MEDS: Lactobacillus Acidophilus/L. Spores Tablet PO SCH ×3 (09:02→20:51)
[2017-10-20 09:39] LABS: Baso % (Auto) 0.4 % (0.0-2.0); Hematocrit 37.4 % (35.0-46.0); Hemoglobin 12.5 gm/dL (11.6-15.3); Lymph # (Auto) 0.2 th/mm3 (1.0-4.8); Lymph % (Auto) 2.7 % (9.0-44.0); Mean Corpuscular HGB Conc 33.6 % (32.0-36.0); Mean Corpuscular Hemoglobin 31.7 pg (27.0-34.0); Mean Corpuscular Volume 94.5 fL (80.0-100.0); Mean Platelet Volume 8.5 fL (7.0-11.0); Mono # (Auto) 0.6 th/mm3 (0.0-0.9); Mono % (Auto) 6.2 % (0.0-8.0); Neut # (Auto) 8.5 th/mm3 (1.8-7.7); Neut % (Auto) 90.7 % (16.0-70.0); Platelet Count 179 th/mm3 (150-450); Red Blood Count 3.95 mil/mm3 (4.00-5.30); Red Cell Distribution Width 16.7 % (11.6-17.2); White Blood Count 9.3 th/mm3 (4.0-11.0)
[2017-10-20] MEDS ORDERED: dilTIAZem Inj 125 MG in Sodium Chlor 0.9% Inj 100 ML IV.CONT PRN (13:25)
--- NOTE | 2017-10-20 13:38 | P.PN ---
Subjective Interval history: Patient with severe hyponatremia, altered mental status. Patient seen and examined. Discussed with RN, patient with seizure-like activity, Halicat/ stroke alert called. Repeat EEG ordered but results pending. Patient less responsive today but was given 2 mg of Ativan earlier. In afib with rapid HR. Physical Exam Vital signs: Vital Signs 10/19/17 17:33 10/19/17 20:00 10/19/17 23:14 Temperature 98 F 100.9 F H Pulse Rate 130 H 103 H 91 H Respiratory Rate 18 20 Blood Pressure 168/98 H 127/71 Pulse Oximetry 93 L 93 L 10/20/17 00:00 10/20/17 04:00 10/20/17 04:40 Temperature 97.9 F 97.8 F Pulse Rate 92 H 91 H Respiratory Rate 18 22 Blood Pressure 147/90 H 150/98 H Pulse Oximetry 93 L 96 88 L 10/20/17 09:49 10/20/17 12:51 Temperature 98.3 F Pulse Rate 92 H 120 H Respiratory Rate 16 16 Blood Pressure 115/70 169/109 H Pulse Oximetry 98 97 Intake & Output 10/19/17 10/20/17 10/20/17 18:59 06:59 18:59 Intake Total 120 / 120 0 / 0 Output Total 700 / 700 700 / 700 Balance -580 / -580 -700 / -700 Weight 68 kg Intake: Oral 120 / 120 0 / 0 Output: Urine 700 / 700 700 / 700 Other: # Incontinent Voids 1 # Bowel Movements 0 # Incontinent Bowel Movements 1 Narrative: GENERAL: This is a well-developed well-nourished elderly female patient INAD. Somnolent. Will not respond to voice commands. Withdraws to pain. HEAD: Normocephalic. NECK: Supple, trachea midline. No lymphadenopathy. EYES: No scleral icterus. No injection or drainage. CARDIOVASCULAR: Irregular rate and rhythm without murmurs, gallops, or rubs. RESPIRATORY: Poor effort. Breath sounds equal bilaterally. No accessory muscle use. Clear to auscultation anteriorly. GASTROINTESTINAL: Abdomen soft, non-tender, nondistended. MUSCULOSKELETAL: No cyanosis or edema noted SKIN: Warm and dry. No generalized rash NEURO: Patient is somnolent. Nonresponsive. - Urinary Catheter Management Female External Cath placed during this visit: no Results - Labs CBC & Chem 7: 07/29/18 07:20 10/20/17 13:00 Laboratory Results - last 24 hr 10/20/17 10/20/17 10/20/17 05:03 07:20 07:20 WBC 9.3 RBC 3.95 L Hgb 12.5 Hct 37.4 MCV 94.5 MCH 31.7 MCHC 33.6 RDW 16.7 Plt Count 179 MPV 8.5 Neut % (Auto) 90.7 H Lymph % (Auto) 2.7 L Grant % (Auto) 6.2 Eos % (Auto) 0.0 Baso % (Auto) 0.4 Neut # (Auto) 8.5 H Lymph # (Auto) 0.2 L Grant # (Auto) 0.6 Eos # (Auto) 0.0 Baso # (Auto) 0.0 WBC Differential . Differential Comment Auto diff final Puncture Site Right radial Patient Temperature 98.6 O2 Saturation 89 L* ABG pH 7.27 L* ABG pCO2 66 H* ABG pO2 79 ABG HCO3 29 H ABG O2 Content 15.6 ABG Base Excess 2.9 H ABG Methemoglobin 1.2 Krishna Test Present Hemoglobin 12.4 Carboxyhemoglobin 1.7 O2 Delivery Device Nasal cannula Liter Flow 4.00 Inspired O2 21 Critical Value Yes Hemoglobin A1c 5.0 - Imaging Impressions Head CT 10/20/17 04:56 CONCLUSION: 1. Stable senescent changes with periventricular white matter ischemic demyelination. 2. No acute intracranial abnormality. Report was called by Dr. Fishman to Dr. Singh at 0540 a.m.] Head CTA 10/20/17 04:56 CONCLUSION: 1. Unremarkable head CTA examination. 2. No evidence for large vessel occlusion or significant intracranial stenosis. Neck CTA 10/20/17 04:56 CONCLUSION: 1. No significant carotid artery flow-limiting stenosis. 2. Patent vertebral arteries bilaterally. 3. Small bilateral, left greater than right, pleural effusions. - Procedures NONE Assessment and Plan - Assessment (1) Acute metabolic encephalopathy Code(s): G93.41 - Metabolic encephalopathy Status: Acute (2) Acute hyponatremia Code(s): E87.1 - Hypo-osmolality and hyponatremia Status: Acute (3) Acute hypokalemia Code(s): E87.6 - Hypokalemia Status: Acute - Plan 86-year-old female admitted secondary to hyponatremia, hypokalemia, and encephalopathy. AMS/Metabolic encephalopathy Halicat/stroke alert called with possible seizure activity. EEG ordered, report pending Head CT stable with no acute intracranial abnormality Head CTA unremarkable Neck CTA with no significant stenosis Consult neurology, appreciate assistance Given loading dose of IV Keppra. Continue on Keppra IV BID pending neuro assessment/recommendations Patient is extremely somnolent this morning, given Ativan earlier. Hold all sedating medications. Make patient n.p.o., IVF for hydration ST consult for swallow evaluation Obtain CXR and UA Seizure and aspiration precautions Severe hyponatremia, resolved continue to monitor sodium levels Monitor mental status for improvement Paroxysmal A. fib A. fib RVR, HR 120 Uncontrolled HTN Likely related to metabolic disturbances Unable to tolerate p.o. medications due to altered mental status transfer to [facility] for Cardizem drip Therapeutic Lovenox for now continuous cardiac monitoring Hypercapnic hypoxic respiratory failure ABG reviewed O2 sats improved Continue supplemental oxygen as needed Continue to monitor respiratory status Hypokalemia, resolved Hypomagnesemia, resolved Monitor and replace as needed COPD Continue duo nebs Monitor respiratory status Hyperlipidemia Continue present treatment Follow as an outpatient DVT prophylaxis Lovenox Discussed Condition With: Nursing staff, case management, Dr. Livingston
[2017-10-20] MEDS ORDERED: Enoxaparin Inj 80 MG/0.8 ML Syringe SQ SCH (13:45)
[2017-10-20 13:54] LABS: Alanine Aminotransferase 31 U/L (10-53); Albumin 3.5 g/dL (3.4-5.0); Alkaline Phosphatase 232 U/L (45-117); Anion Gap 9 meq/L (5-15); Aspartate Aminotransferase 43 U/L (15-37); Blood Urea Nitrogen 22 mg/dL (7-18); Calcium 8.8 mg/dL (8.5-10.1); Carbon Dioxide 29.2 meq/L (21.0-32.0); Chloride 104 meq/L (98-107); Glomerular Filtration Rate 61 mL/min (>89); Glucose,Random 89 mg/dL (74-106); Magnesium 1.5 mg/dL (1.5-2.5); Phosphorus 4.1 mg/dL (2.5-4.9); Potassium 3.7 meq/L (3.5-5.1); Sodium 142 meq/L (136-145)
--- NOTE | 2017-10-20 19:32 | XR ---
EXAM DATE: 10/20/2017 7:26 PM EDT AGE/SEX: 86 years / Female INDICATIONS: Shortness of breath. CLINICAL DATA: This is the patient's initial encounter. Patient reports that signs and symptoms have been present for 1 day and indicates a pain score of 0/10. MEDICAL/SURGICAL HISTORY: . Cardiovascular disease. Hypertension. Chronic obstructive pulmonary disease. CVA None. COMPARISON: [facility], CHEST 1V SINGLE AP, 10/13/2017. . FINDINGS: There is cardiomegaly with mild interstitial edema and minimal consolidative changes left base. No pn eumothorax. No pleural effusion. The portion of the bony skeleton visualized is unremarkable. CONCLUSION: Moderate congestive failure without effusion Minimal consolidative changes left base Electronically signed by: Osmar Martinez MD 10/20/2017 7:30 PM EDT
[2017-10-21] MEDS: Sod Chloride 0.9% Inj 1,000 ML IV.CONT SCH ×2 (03:54→12:47)
[2017-10-21] MEDS ORDERED: Chlorhexidine Gluconate 2% 1 Pack (2 Cloths) TOPICAL PRN (04:00)
[2017-10-21] MEDS ORDERED: Chlorhexidine Gluconate 2% 1 Pack (2 Cloths) TOPICAL SCH (04:00)
[2017-10-21 07:56] LABS: Baso % (Auto) 0.3 % (0.0-2.0); Eos % (Auto) 0.2 % (0.0-4.0); Hematocrit 36.5 % (35.0-46.0); Hemoglobin 12.1 gm/dL (11.6-15.3); Lymph # (Auto) 0.7 th/mm3 (1.0-4.8); Lymph % (Auto) 10.5 % (9.0-44.0); Mean Corpuscular HGB Conc 33.2 % (32.0-36.0); Mean Corpuscular Hemoglobin 31.9 pg (27.0-34.0); Mean Corpuscular Volume 96.1 fL (80.0-100.0); Mean Platelet Volume 7.8 fL (7.0-11.0); Mono # (Auto) 0.7 th/mm3 (0.0-0.9); Mono % (Auto) 11.1 % (0.0-8.0); Neut % (Auto) 77.9 % (16.0-70.0); Platelet Count 174 th/mm3 (150-450); Red Cell Distribution Width 16.7 % (11.6-17.2); White Blood Count 6.5 th/mm3 (4.0-11.0)
[2017-10-21] MEDS: Lactobacillus Acidophilus/L. Spores Tablet PO SCH ×3 (08:04→18:14)
--- NOTE | 2017-10-21 08:17 | P.PN ---
Subjective Interval history: seen with staff nurse at bedside, smiling appears in no acute distress she is awake and alert, stated her name repeateldy gripped with both hand s when asked to persistent mild head bobbing otherwise, no other meanfinful verbal output- repeating her name "Lisa", "raj" telemetry- in atrial fibrillation, rate 90s Physical Exam Vital signs: Vital Signs 10/20/17 09:49 10/20/17 12:51 10/20/17 16:00 Temperature 98.3 F 98.1 F Pulse Rate 92 H 120 H 102 H Respiratory Rate 16 16 18 Blood Pressure 115/70 169/109 H 129/83 Pulse Oximetry 98 97 100 10/20/17 17:02 10/20/17 18:00 10/20/17 19:00 Temperature Pulse Rate 99 H 96 H Respiratory Rate 40 H 43 H 43 H Blood Pressure 139/68 142/78 H Pulse Oximetry 100 100 10/20/17 20:00 10/20/17 21:00 10/20/17 22:00 Temperature 98.1 F Pulse Rate 103 H 99 H Respiratory Rate 26 H 28 H 29 H Blood Pressure 127/87 125/78 Pulse Oximetry 98 97 93 L 10/20/17 22:01 10/20/17 23:00 10/21/17 00:00 Temperature 98.4 F Pulse Rate 160 H 86 78 Respiratory Rate 48 H 46 H 49 H Blood Pressure 147/87 H 128/69 125/78 Pulse Oximetry 96 97 97 10/21/17 01:00 10/21/17 02:00 10/21/17 04:00 Temperature Pulse Rate 80 83 109 H Respiratory Rate 46 H 37 H 32 H Blood Pressure 135/70 133/71 138/80 Pulse Oximetry 97 97 97 Intake & Output 10/20/17 10/21/17 10/21/17 18:59 06:59 18:59 Intake Total Output Total 700 / 700 Balance -495 / -495 Weight 68 kg Intake: IV Keppra Inj 500 MG In NS Inj 100 105 / 105 ML @ 400 mls/hr IV.SIG Q12H NADJA Rx#:[id number] Oral 0 / 0 Output: Urine 700 / 700 Other: # Incontinent Voids 3 Date of Last Bowel Movement 10/19/17 10/19/17 Narrative: awake and alert, no acute distress, smiling + expressive aphasia- most verbal output is "lisa", "yeah" offered straw to assess swallowing- patient not ff-opened mouth but not sipping mild head bobbing- coninutous just smiling anicteric no facial asymmetry very weak gag no nuchal rigidity no rales no wheezes irregularly irregular rhythm abdomen soft, nontender extremities no edema [place] female catheter in place gripped when hands held moves feet when instucted to - Urinary Catheter Management Female External Cath placed during this visit: no Results - Labs CBC & Chem 7: 10/21/17 07:12 10/21/17 07:12 Laboratory Results - last 24 hr 10/20/17 10/20/17 10/20/17 07:20 07:20 13:00 WBC 9.3 RBC 3.95 L Hgb 12.5 Hct 37.4 MCV 94.5 MCH 31.7 MCHC 33.6 RDW 16.7 Plt Count 179 MPV 8.5 Neut % (Auto) 90.7 H Lymph % (Auto) 2.7 L [place] % (Auto) 6.2 Eos % (Auto) 0.0 Baso % (Auto) 0.4 Neut # (Auto) 8.5 H Lymph # (Auto) 0.2 L [place] # (Auto) 0.6 Eos # (Auto) 0.0 Baso # (Auto) 0.0 WBC Differential . Differential Comment Auto diff final Sodium 142 Potassium 3.7 Chloride 104 Carbon Dioxide 29.2 Anion Gap 9 BUN 22 H Creatinine 0.88 Estimated GFR 61 L Random Glucose 89 Hemoglobin A1c 5.0 Calcium 8.8 Phosphorus 4.1 Magnesium 1.5 Total Bilirubin 0.6 AST 43 H ALT 31 Alkaline Phosphatase 232 H Troponin I Total Protein 7.0 Albumin 3.5 TSH 6.360 H Free T4 1.00 Nasal Screen MRSA (PCR) 10/20/17 10/20/17 10/21/17 16:11 19:24 07:12 WBC 6.5 RBC 3.80 L Hgb 12.1 Hct 36.5 MCV 96.1 MCH 31.9 MCHC 33.2 RDW 16.7 Plt Count 174 MPV 7.8 Neut % (Auto) 77.9 H Lymph % (Auto) 10.5 [place] % (Auto) 11.1 H Eos % (Auto) 0.2 Baso % (Auto) 0.3 Neut # (Auto) 5.0 Lymph # (Auto) 0.7 L [place] # (Auto) 0.7 Eos # (Auto) 0.0 Baso # (Auto) 0.0 WBC Differential . Differential Comment Auto diff final Sodium Potassium Chloride Carbon Dioxide Anion Gap BUN Creatinine Estimated GFR Random Glucose Hemoglobin A1c Calcium Phosphorus Magnesium Total Bilirubin AST ALT Alkaline Phosphatase Troponin I 0.04 Total Protein Albumin TSH Free T4 Nasal Screen MRSA (PCR) Not detected - Imaging Impressions Chest X-Ray 10/20/17 00:00 CONCLUSION: Moderate congestive failure without effusion Minimal consolidative changes left base - Procedures NONE Assessment and Plan - Assessment (1) Acute metabolic encephalopathy Code(s): G93.41 - Metabolic encephalopathy Status: Acute (2) Acute hyponatremia Code(s): E87.1 - Hypo-osmolality and hyponatremia Status: Acute (3) Acute hypokalemia Code(s): E87.6 - Hypokalemia Status: Acute - Plan 86-year-old female admitted secondary to hyponatremia, hypokalemia, and encephalopathy. AMS/Metabolic encephalopathy - likely with some underlying baseline dementia Possible Seziure MS improved on this amn's exam Halicat/stroke alert called with possible seizure activity 10/20. EEG ordered, report pending Head CT stable with no acute intracranial abnormality Head CTA unremarkable Neck CTA with no significant stenosis Neurology consulted Given loading dose of IV Keppra. Continue on Keppra IV BID Oropharygenal dysphagia - speech therapy consulted for swallowing eval - will need NGT or PEG for nutritona and meds route if failed - will need to address this with family Essential Tremors- clinically - monitor - constant head bobbing EEG pending neurology was consulted Seizure and aspiration precautions Severe hyponatremia, resolved - MS improved Atrial fibrillation- rate 90s Uncontrolled HTN - patient not taking po- likely with dysphagia - speech consulted for evaluation - Cadriziem drip if needed Therapeutic Lovenox for now continuous cardiac monitoring HOld eliquis- patient not taking po Hypercapnic hypoxic respiratory failure-likely from IV ativan- good sats at room air- MS improved ABG reviewed O2 sats improved Continue supplemental oxygen as needed Continue to monitor respiratory status Hypokalemia, resolved Hypomagnesemia, resolved Monitor and replace as needed COPD Continue duo nebs Monitor respiratory status Hyperlipidemia Continue present treatment Follow as an outpatient DVT prophylaxis Lovenox Discussed Condition With: Nursing staff, Per notes- patient is a DNR palliative care consulted to determine goals of care- possible hospice candidate told staff to call me when family/daughter arrives to discuss with them
[2017-10-21 08:18] LABS: Calcium 8.9 mg/dL (8.5-10.1); Carbon Dioxide 29.1 meq/L (21.0-32.0); Magnesium 1.5 mg/dL (1.5-2.5); Potassium 3.1 meq/L (3.5-5.1)
--- NOTE | 2017-10-21 10:18 | MG ---
cc: David Singh MD EEG NUMBER: [id number] Hyperventilation not performed. COPD, status post Ativan, seizure. Some diffuse 5 Hz slowing is seen. Movement artifact is noted intermittently. Photic stimulation is performed without significant posterior driving. No hemisphere asymmetries are noted. IMPRESSION: Diffuse theta slowing consistent with a [id number] diffuse encephalopathy, but no focal abnormality was noted. No seizure activity was seen. MD KEEGAN Anglin/delmer/mark , 06:07 PM , 06:12 PM
--- NOTE | 2017-10-21 11:38 | P.CONPAL ---
Consult Service: Palliative Care Requesting Physician: Jose Livingston Reason for Consult: a. To assist with evaluation and management of symptoms including: pain b. To assist medical decision maker(s) with: better understanding of current medical conditions; weighing benefits/burdens of medical treatment options; making medical treatment decisions. Primary Care Provider: Aguilar Barriga MD and OR History of Present Illness History of Present Illness: This 86-year-old female, with a past history of CHF, severe tricuspid regurgitation, atrial fibrillation, COPD, and hypertension, has been declining in recent months. She has had worsening edema, pleural effusions, anasarca, and pericardial effusion over the past couple months, and has undergone thoracentesis as well as pericardiocentesis procedures. She presented to the hospital because of altered mental status on 10/13/17, with no history of recent injury or fever. In the emergency department, findings included: * Alert, confused * Temp 97.9, pulse 99, respirations 20, blood pressure 158/89, oxygen saturation 97% * White count 6.2, hemoglobin 11.5 * sodium 122, creatinine 0.85, potassium 2.9, albumin 4.0 * Urinalysis without obvious infection * Chest x-ray with an effusion on the left and cardiomegaly * Head CT revealed chronic changes The patient was admitted and treated for her electrolyte abnormalities. An EEG done on 10/16/17 revealed moderate to moderately severe diffuse encephalopathy, but no seizure activity was noted. A urine culture grew less than 10,000 enterococcus faecalis. The sodium steadily improved and by 10/19/17 it was 138. On the early childhood education coordinator of the patient developed acute neurologic changes and a Stroke Alert was called. Chest x-ray at that time revealed evidence of CHF and minimal consolidative changes at the left base. CT of the head was unchanged from one week earlier, and CTA head and CTA neck were unremarkable for significant occlusions. The patient was placed on Keppra. By this morning, the patient remained confused and altered, but was awake and smiling. She shook her head "no" when asked if she had pain or breathing problems, but all she would verbalize was her first name Repeatedly. The patient's family had expressed to some providers earlier that the patient would not want to be coded, and Palliative Care was consulted to assist with symptom management, and to enter into discussions with the family regarding her current illnesses, the prognosis, and the benefits and burdens of the various treatment choices. Review of Systems other (Patient confused, history from family and staff) Constitutional: Reports daytime sleepiness, Reports weakness, Reports weight loss (With recent diuresis) Eyes: Denies irritation Ears, Nose, Mouth, and Throat: Denies mouth lesions Cardiovascular: Reports shortness of breath (With seizure activity yesterday), Denies chest pain Respiratory: Reports shortness of breath with activity, Denies coughing up blood Gastrointestinal: Denies abdominal pain, Denies black, tarry stools, Denies bright, red blood in stools, Denies vomiting blood Genitourinary: Denies blood in urine Musculoskeletal: Denies back pain, Denies joint swelling Skin/Breast: Denies itching Neurologic: Reports seizure-like activity (First time, ), Denies abnormal hearing Psychiatric: Reports confusion Endocrine: Denies excessive sweating Hematologic/Lymphatic: Denies easy bruising Allergic/Immunologic: Denies hives PMFSH - History History Provided By: Family Member, Medical Record, Rotary Dump Operator / EMT - Medical History Medical History: Medical History (Last Updated 10/21/17 @ 11:33 by Mai Regalado MD) Tricuspid regurgitation (Acute) High cholesterol (Acute) Hypothyroidism (Acute) Pericardial effusion without cardiac tamponade (Acute) Pleural effusion (Acute) Paroxysmal A-fib (Acute) COPD (chronic obstructive pulmonary disease) (Acute) Hypertension (Acute) - Surgical History Surgical History: Surgical History (Last Updated 10/21/17 @ 11:33 by Mai Regalado MD) Hx of tonsillectomy (Acute) History of bladder surgery - Family History Family History: Family History (Last Updated 10/13/17 @ 13:42 by Andria Oden MD) Other Family history non-contributory - Tobacco History Second Hand Smoke Exposure: Yes Smoking Status: Never smoker - Alcohol History How Often Do You Have a Drink Containing Alcohol: Never - Substance Use History Substance History: No History of Abuse - Travel History Recent Travel in the [place] Within the Last 8 Weeks: No Recent Travel Out of the Country Within the Last 8 Weeks: No - Immunization History Tetanus Immunization: Unsure Hx Influenza Vaccine This Season: Unable to Assess Medications and Allergies Active Medications: Active Medications Acetaminophen (Tylenol) 650 mg PO Q6H PRN PRN Reason: PAIN SCALE 1 TO 2 Al Hydroxide/Mg Hydroxide (Milk Of Magnesia Liq) 30 ml PO Q12H PRN PRN Reason: Mild Constipation Albuterol (Duoneb Neb (Prn)) 1 ampul NEB Q2HR NEB PRN PRN Reason: SHORTNESS OF BREATH Amoxicillin (Amoxil) 500 mg PO Q6H [facility] Last Admin: 10/21/17 03:51 Dose: Not Given Apixaban (Eliquis) 5 mg PO BID [facility] Last Admin: 10/21/17 08:04 Dose: Not Given Bisacodyl (Dulcolax Supp) 10 mg RECTAL DAILY PRN PRN Reason: SEVERE CONSITIPATION Chlorhexidine Gluconate (Chlorhexidine 2% Cloth) 3 pack TOPICAL DAILY@0400 [facility] Stop: 10/26/17 03:59 Last Admin: 10/21/17 03:51 Dose: 3 pack Chlorhexidine Gluconate (Chlorhexidine 2% Cloth) 3 pack TOPICAL DAILY@0400 PRN PRN Reason: Extra cloth needed Stop: 10/26/17 03:59 Enalaprilat (Vasotec Inj) 1.25 mg IV.PUSH Q6H PRN PRN Reason: SBP>160, DBP>90 Last Admin: 10/19/17 01:06 Dose: 1.25 mg Enoxaparin Sodium (Lovenox Inj) 68 mg SQ Q12HR [facility] Last Admin: 10/20/17 20:52 Dose: 68 mg Sodium Chloride (Ns Inj) 1,000 mls @ 42 mls/hr IV.CONT .[id number] [facility] Last Admin: 10/21/17 03:54 Dose: Not Given Diltiazem HCl 125 mg/ Sodium (Chloride) 125 mls @ 5 mls/hr IV.CONT TITRATE PRN ; Protocol PRN Reason: Per Protocol Levetiracetam 500 mg/ Sodium (Chloride) 105 mls @ 400 mls/hr IV.SIG Q12H [facility] Last Admin: 10/21/17 09:25 Dose: 400 mls/hr Lactobacillus Acidophilus (Lactinex) 1 tab PO TID [facility] Last Admin: 10/21/17 08:04 Dose: Not Given Lactulose (Lactulose Liq) 30 ml PO DAILY PRN PRN Reason: SEVERE CONSITIPATION Metoprolol Succinate (Toprol Xl) 100 mg PO DAILY [facility] Last Admin: 10/21/17 08:05 Dose: Not Given Naloxone HCl (Narcan Inj) 0.4 mg IV.PUSH UNSCH PRN PRN Reason: SEE LABEL COMMENTS Ondansetron HCl (Zofran Inj) 4 mg IV.PUSH Q6H PRN PRN Reason: NAUSEA OR VOMITING Oxycodone/Acetaminophen (Percocet 10/325 Mg) 1 tab PO Q6H PRN PRN Reason: PAIN SCALE 6 TO 10 Oxycodone/Acetaminophen (Percocet 5/325 Mg) 1 tab PO Q6H PRN PRN Reason: PAIN SCALE 3 TO 5 Sennosides (Senokot) 17.2 mg PO Q12H PRN PRN Reason: Moderate Constipation Sodium Chloride (Ns Flush) 2 ml IV.FLUSH PRN PRN PRN Reason: FLUSH AFTER USING IV ACCESS Sodium Chloride (Ns Flush) 2 ml IV.FLUSH PRN PRN PRN Reason: FLUSH AFTER USING IV ACCESS Allergies Allergy/AdvReac Type Severity Reaction Status Date / Time simvastatin Allergy Unknown Rash Verified 10/13/17 10:37 Home Medications Medication Instructions Recorded Confirmed Type apixaban [Eliquis] 5 mg PO BID 09/26/17 10/13/17 History ascorbic acid (vitamin C) [Vitamin 500 mg PO DAILY 09/26/17 10/13/17 History C] aspirin [Aspirin Low Dose] 81 mg PO DAILY 09/26/17 10/13/17 History calcium citrate-vitamin D3 1 tab PO QAM 09/26/17 10/13/17 History [Citracal + D Maximum] levothyroxine 200 mcg PO DAILY 09/26/17 10/13/17 History metoprolol succinate 100 mg PO DAILY 09/26/17 10/13/17 History multivitamin 1 tab PO DAILY 09/26/17 10/13/17 History polyvinyl alcohol [Artificial 1 drop EACH EYE BID 09/26/17 09/26/17 History Tears (polyvin alc)] potassium chloride 30 meq PO DAILY 09/26/17 10/13/17 History pravastatin 40 mg PO DAILY 09/26/17 10/13/17 History primidone 125 mg PO Q12H 09/26/17 10/13/17 History [place]-3 10/13/17 10/13/17 History [place]-3 500 mg PO DAILY 10/13/17 10/13/17 History Physical Exam Vital Signs: Vital Signs - 24 hr 10/20/17 12:51 10/20/17 16:00 10/20/17 17:02 Temperature 98.3 F 98.1 F Pulse Rate 120 H 102 H 99 H Respiratory Rate 16 18 40 H Blood Pressure 169/109 H 129/83 Pulse Oximetry 97 100 100 10/20/17 18:00 10/20/17 19:00 10/20/17 20:00 Temperature 98.1 F Pulse Rate 96 H 103 H Respiratory Rate 43 H 43 H 26 H Blood Pressure 139/68 142/78 H 127/87 Pulse Oximetry 100 98 10/20/17 21:00 10/20/17 22:00 10/20/17 22:01 Temperature Pulse Rate 99 H 160 H Respiratory Rate 28 H 29 H 48 H Blood Pressure 125/78 147/87 H Pulse Oximetry 97 93 L 96 10/20/17 23:00 10/21/17 00:00 10/21/17 01:00 Temperature 98.4 F Pulse Rate 86 78 80 Respiratory Rate 46 H 49 H 46 H Blood Pressure 128/69 125/78 135/70 Pulse Oximetry 97 97 97 10/21/17 02:00 10/21/17 04:00 10/21/17 08:00 Temperature 97.6 F Pulse Rate 83 109 H 122 H Respiratory Rate 37 H 32 H 30 H Blood Pressure 133/71 138/80 133/73 Pulse Oximetry 97 97 94 L 10/21/17 09:00 Temperature Pulse Rate 108 H Respiratory Rate Blood Pressure Pulse Oximetry I&O: Intake & Output 10/19/17 10/20/17 10/21/17 10/22/17 06:59 06:59 06:59 06:59 Intake Total 120 / 120 205 / 205 Output Total 800 / 800 1400 / 1400 700 / 700 Balance -800 / -800 -1280 / -1280 -495 / -495 Weight 69.5 kg 68 kg 68 kg Physical Exam: CONSTITUTIONAL/GENERAL: This is an elderly, weak, confused patient, in no apparent distress. TUBES/LINES/DRAINS: IV access, [place] SKIN: No jaundice, rashes, or lesions. Ecchymoses on upper extremities. No wounds seen anteriorly. Skin temperature appropriate. Not diaphoretic. HEAD: Atraumatic. Normocephalic. EYES: Pupils equal and round and reactive. Extraocular motions intact. No scleral icterus. No injection or drainage. Fundi not examined. ENT: Hearing grossly normal. Nose without bleeding or purulent drainage. Throat without visible erythema, exudates, masses, or lesions. NECK: Trachea midline. Supple, nontender. No palpable thyroid enlargement or nodularity. CARDIOVASCULAR: Irregularly irregular rhythm with grade 2 systolic murmur. Some JVD with head up 30. Peripheral pulses diminished. RESPIRATORY/CHEST: Symmetric, unlabored respirations. Clear to auscultation. Breath sounds equal bilaterally, but diminished. A few scattered rhonchi. GASTROINTESTINAL: Abdomen soft, non-tender, but mildly distended. No hepato- splenomegaly, or palpable masses. No guarding. Bowel sounds present. GENITOURINARY: Without palpable bladder distension. Valle catheter in place. MUSCULOSKELETAL: Extremities without clubbing, cyanosis, or edema. No joint tenderness or effusion noted. No calf tenderness. No mottling or clubbing. LYMPHATICS: No palpable cervical or supraclavicular adenopathy. NEUROLOGICAL: Awake and alert. Moves all 4 extremities, follows simple commands , confused, not oriented to place. PSYCHIATRIC: No obvious anxiety/depression. no apparent hallucinations or other psychotic thought process. Diagnostic Tests Laboratory: Laboratory Results - last 72 hr 10/19/17 10/19/17 10/20/17 08:04 08:04 05:03 WBC 6.5 RBC 3.53 L Hgb 11.1 L Hct 32.5 L MCV 92.1 MCH 31.3 MCHC 34.0 RDW 15.9 Plt Count 189 MPV 7.6 Neut % (Auto) 71.3 H Lymph % (Auto) 14.1 [place] % (Auto) 11.8 H Eos % (Auto) 2.1 Baso % (Auto) 0.7 Neut # (Auto) 4.6 Lymph # (Auto) 0.9 L [place] # (Auto) 0.8 Eos # (Auto) 0.1 Baso # (Auto) 0.0 WBC Differential . Differential Comment Auto diff final Puncture Site Right radial Patient Temperature 98.6 O2 Saturation 89 L* ABG pH 7.27 L* ABG pCO2 66 H* ABG pO2 79 ABG HCO3 29 H ABG O2 Content 15.6 ABG Base Excess 2.9 H ABG Methemoglobin 1.2 Krishna Test Present Hemoglobin 12.4 Carboxyhemoglobin 1.7 O2 Delivery Device Nasal cannula Liter Flow 4.00 Inspired O2 21 Critical Value Yes Sodium 138 Potassium 3.9 Chloride 102 Carbon Dioxide 28.2 Anion Gap 8 BUN 14 Creatinine 0.64 Estimated GFR 88 L Random Glucose 81 Hemoglobin A1c Calcium 8.8 Phosphorus Magnesium Total Bilirubin 0.6 AST 30 ALT 21 Alkaline Phosphatase 208 H Troponin I Total Protein 6.5 Albumin 3.3 L TSH Free T4 Nasal Screen MRSA (PCR) 10/20/17 10/20/17 10/20/17 07:20 07:20 13:00 WBC 9.3 RBC 3.95 L Hgb 12.5 Hct 37.4 MCV 94.5 MCH 31.7 MCHC 33.6 RDW 16.7 Plt Count 179 MPV 8.5 Neut % (Auto) 90.7 H Lymph % (Auto) 2.7 L [place] % (Auto) 6.2 Eos % (Auto) 0.0 Baso % (Auto) 0.4 Neut # (Auto) 8.5 H Lymph # (Auto) 0.2 L [place] # (Auto) 0.6 Eos # (Auto) 0.0 Baso # (Auto) 0.0 WBC Differential . Differential Comment Auto diff final Puncture Site Patient Temperature O2 Saturation ABG pH ABG pCO2 ABG pO2 ABG HCO3 ABG O2 Content ABG Base Excess ABG Methemoglobin Krishna Test Hemoglobin Carboxyhemoglobin O2 Delivery Device Liter Flow Inspired O2 Critical Value Sodium 142 Potassium 3.7 Chloride 104 Carbon Dioxide 29.2 Anion Gap 9 BUN 22 H Creatinine 0.88 Estimated GFR 61 L Random Glucose 89 Hemoglobin A1c 5.0 Calcium 8.8 Phosphorus 4.1 Magnesium 1.5 Total Bilirubin 0.6 AST 43 H ALT 31 Alkaline Phosphatase 232 H Troponin I Total Protein 7.0 Albumin 3.5 TSH 6.360 H Free T4 1.00 Nasal Screen MRSA (PCR) 10/20/17 10/20/17 10/21/17 16:11 19:24 07:12 WBC 6.5 RBC 3.80 L Hgb 12.1 Hct 36.5 MCV 96.1 MCH 31.9 MCHC 33.2 RDW 16.7 Plt Count 174 MPV 7.8 Neut % (Auto) 77.9 H Lymph % (Auto) 10.5 [place] % (Auto) 11.1 H Eos % (Auto) 0.2 Baso % (Auto) 0.3 Neut # (Auto) 5.0 Lymph # (Auto) 0.7 L Nolan # (Auto) 0.7 Eos # (Auto) 0.0 Baso # (Auto) 0.0 WBC Differential . Differential Comment Auto diff final Puncture Site Patient Temperature O2 Saturation ABG pH ABG pCO2 ABG pO2 ABG HCO3 ABG O2 Content ABG Base Excess ABG Methemoglobin Krishna Test Hemoglobin Carboxyhemoglobin O2 Delivery Device Liter Flow Inspired O2 Critical Value Sodium Potassium Chloride Carbon Dioxide Anion Gap BUN Creatinine Estimated GFR Random Glucose Hemoglobin A1c Calcium Phosphorus Magnesium Total Bilirubin AST ALT Alkaline Phosphatase Troponin I 0.04 Total Protein Albumin TSH Free T4 Nasal Screen MRSA (PCR) Not detected 10/21/17 07:12 WBC RBC Hgb Hct MCV MCH MCHC RDW Plt Count MPV Neut % (Auto) Lymph % (Auto) [place] % (Auto) Eos % (Auto) Baso % (Auto) Neut # (Auto) Lymph # (Auto) Nolan # (Auto) Eos # (Auto) Baso # (Auto) WBC Differential Differential Comment Puncture Site Patient Temperature O2 Saturation ABG pH ABG pCO2 ABG pO2 ABG HCO3 ABG O2 Content ABG Base Excess ABG Methemoglobin Krishna Test Hemoglobin Carboxyhemoglobin O2 Delivery Device Liter Flow Inspired O2 Critical Value Sodium 144 Potassium 3.1 L Chloride 105 Carbon Dioxide 29.1 Anion Gap 10 BUN 24 H Creatinine 0.74 Estimated GFR 75 L Random Glucose 71 L Hemoglobin A1c Calcium 8.9 Phosphorus Magnesium 1.5 Total Bilirubin AST ALT Alkaline Phosphatase Troponin I Total Protein Albumin TSH Free T4 Nasal Screen MRSA (PCR) Result Diagrams: 10/21/17 07:12 10/21/17 07:12 Imaging: Chest X-Ray 10/20/17 00:00 CONCLUSION: Moderate congestive failure without effusion Minimal consolidative changes left base Head CT 10/20/17 04:56 CONCLUSION: 1. Stable senescent changes with periventricular white matter ischemic demyelination. 2. No acute intracranial abnormality. Report was called by Dr. Fishman to Dr. Singh at 0540 a.m.] Head CTA 10/20/17 04:56 CONCLUSION: 1. Unremarkable head CTA examination. 2. No evidence for large vessel occlusion or significant intracranial stenosis. Neck CTA 10/20/17 04:56 CONCLUSION: 1. No significant carotid artery flow-limiting stenosis. 2. Patent vertebral arteries bilaterally. 3. Small bilateral, left greater than right, pleural effusions. Patient/Family Conference Issues Discussed: * Palliative care role, purpose, approach * Additional medical, psychosocial, and spiritual history * Patients general health, functional status, and cognitive changes in the months leading up to the current hospitalization * Patient/family understanding of the current medical problems * Patient/family understanding of prognosis * Patients goals of care as best understood from advance directives and/or conversations and/or values * Current medical treatment options and benefits/burdens of those options * Likely scenarios comparing ongoing aggressive care with a transition to comfort measures only * Questions answered to the best of my ability * Palliative care contact information provided Assessment and Plan Pertinent Non-Medical Issues: Psychosocial: Spiritual: Legal: Ethical issues impacting care: Plan: * I will be meeting with the daughter and son at 3 PM to obtain more history and to discuss the prognosis and goals of care. Appreciation Thank you for the opportunity to participate in the care of Anaperez Tejada.
[2017-10-21] MEDS ORDERED: Metoprolol Inj 5 MG/5 ML Vial IV.PUSH ONE (14:30)
[2017-10-21] MEDS ORDERED: KCL 20 mEq/D5W/NaCl 0.9% Inj 1,000 ML IV.CONT SCH (16:07)
--- NOTE | 2017-10-21 16:58 | P.DS ---
Date of admission: 10/13/17 13:30 Primary care physician: Aguilar Barriga MD Anticipated date of discharge: 10/21/17 Brief History from admission: 86-year-old white female with a history of pericardial effusion, pleural effusion, COPD, hypertension who was recently discharged on September 29 for pericardial effusion pleural effusion on diuretics was brought to the emergency room by her daughter secondary to changes in her mental status as she has become more agitated and confused from her baseline. Due to her confused mental status, I am unable to get much history from the patient. Most of the history was gathered from discussing with the ED physician and reviewing medical records. Nursing staff states her daughter just left the emergency room. Per old medical records, patient had a recent admission for pericardial effusion and pleural effusion and was managed with diuretics and was sent home on Lasix, metolazone, and potassium supplements. At that time she was seen by Dr. Fitzgearld, binding dyer. DS: Diagnosis - Discharge Diagnosis (1) Acute metabolic encephalopathy Status: Acute (2) Acute hyponatremia Status: Acute (3) Acute hypokalemia Status: Acute DS: Summary Hospital Course: 86-year-old female admitted secondary to hyponatremia, hypokalemia, and encephalopathy. AMS/Metabolic encephalopathy - likely with some underlying baseline dementia Possible Seziure MS improved on this amn's exam Halicat/stroke alert called with possible seizure activity 10/20. EEG ordered, report pending Head CT stable with no acute intracranial abnormality Head CTA unremarkable Neck CTA with no significant stenosis Neurology consulted Given loading dose of IV Keppra. Continue on Keppra IV BID Oropharygenal dysphagia - speech therapy consulted for swallowing eval - will need NGT or PEG for nutritona and meds route if failed - will need to address this with family Essential Tremors- clinically - monitor - constant head bobbing EEG pending neurology was consulted Seizure and aspiration precautions Severe hyponatremia, resolved - MS improved Atrial fibrillation- rate 90s Uncontrolled HTN - patient not taking po- likely with dysphagia - speech consulted for evaluation - Cadriziem drip if needed Therapeutic Lovenox for now continuous cardiac monitoring HOld eliquis- patient not taking po Hypercapnic hypoxic respiratory failure-likely from IV ativan- good sats at room air- MS improved ABG reviewed O2 sats improved Continue supplemental oxygen as needed Continue to monitor respiratory status Hypokalemia, resolved Hypomagnesemia, resolved Monitor and replace as needed COPD Continue duo nebs Monitor respiratory status Hyperlipidemia Continue present treatment DVT prophylaxis Lovenox Discussed Condition With: Nursing staff, Per notes- patient is a DNR palliative care consulted to determine goals of care- possible hospice candidate told staff to call me when family/daughter arrives to discuss with them DC to hospice care facility today - Time Spent with Patient Total time spent providing and/or coordinating discharge services: Greater than 30 minutes - Quality: VTE Deep Vein Thrombosis/Pulmonary Embolism Present on Admission: No Exam Vital signs: Vital Signs 10/20/17 17:02 10/20/17 18:00 10/20/17 19:00 Temperature Pulse Rate 99 H 96 H Respiratory Rate 40 H 43 H 43 H Blood Pressure 139/68 142/78 H Pulse Oximetry 100 100 10/20/17 20:00 10/20/17 21:00 10/20/17 22:00 Temperature 98.1 F Pulse Rate 103 H 99 H Respiratory Rate 26 H 28 H 29 H Blood Pressure 127/87 125/78 Pulse Oximetry 98 97 93 L 10/20/17 22:01 10/20/17 23:00 10/21/17 00:00 Temperature 98.4 F Pulse Rate 160 H 86 78 Respiratory Rate 48 H 46 H 49 H Blood Pressure 147/87 H 128/69 125/78 Pulse Oximetry 96 97 97 10/21/17 01:00 10/21/17 02:00 10/21/17 04:00 Temperature Pulse Rate 80 83 109 H Respiratory Rate 46 H 37 H 32 H Blood Pressure 135/70 133/71 138/80 Pulse Oximetry 97 97 97 10/21/17 08:00 10/21/17 09:00 10/21/17 12:00 Temperature 97.6 F 97.7 F Pulse Rate 122 H 108 H 110 H Respiratory Rate 30 H 22 Blood Pressure 133/73 156/81 H Pulse Oximetry 94 L 96 Intake & Output 10/20/17 10/21/17 10/21/17 18:59 06:59 18:59 Intake Total 1205 / 1205 Output Total 700 / 700 Balance 505 / 505 Weight 68 kg Intake: IV 1205 / 1205 NS Inj 1,000 ML @ 42 mls/hr IV. 1000 / 1000 CONT .[id number] [facility] Rx#:[id number] Keppra Inj 500 MG In NS Inj 100 105 / 105 ML @ 400 mls/hr IV.SIG Q12H [facility] Rx#:[id number] Oral 0 / 0 Output: Urine 700 / 700 Other: # Incontinent Voids 3 Date of Last Bowel Movement 10/19/17 10/19/17 10/19/17 Results Procedures completed during hospitalization: NONE Labs on day of discharge: Labs from last 24 hours 10/21/17 10/21/17 10/20/17 07:12 07:12 19:24 WBC 6.5 RBC 3.80 L Hgb 12.1 Hct 36.5 MCV 96.1 MCH 31.9 MCHC 33.2 RDW 16.7 Plt Count 174 MPV 7.8 Neut % (Auto) 77.9 H Lymph % (Auto) 10.5 [place] % (Auto) 11.1 H Eos % (Auto) 0.2 Baso % (Auto) 0.3 Neut # (Auto) 5.0 Lymph # (Auto) 0.7 L [place] # (Auto) 0.7 Eos # (Auto) 0.0 Baso # (Auto) 0.0 WBC Differential . Differential Comment Auto diff final Sodium 144 Potassium 3.1 L Chloride 105 Carbon Dioxide 29.1 Anion Gap 10 BUN 24 H Creatinine 0.74 Estimated GFR 75 L Random Glucose 71 L Calcium 8.9 Magnesium 1.5 Troponin I 0.04 Nasal Screen MRSA (PCR) 10/20/17 16:11 WBC RBC Hgb Hct MCV MCH MCHC RDW Plt Count MPV Neut % (Auto) Lymph % (Auto) [place] % (Auto) Eos % (Auto) Baso % (Auto) Neut # (Auto) Lymph # (Auto) [place] # (Auto) Eos # (Auto) Baso # (Auto) WBC Differential Differential Comment Sodium Potassium Chloride Carbon Dioxide Anion Gap BUN Creatinine Estimated GFR Random Glucose Calcium Magnesium Troponin I Nasal Screen MRSA (PCR) Not detected - Impressions ITS Impressions Chest X-Ray 10/20/17 00:00 CONCLUSION: Moderate congestive failure without effusion Minimal consolidative changes left base Head CT 10/20/17 04:56 CONCLUSION: 1. Stable senescent changes with periventricular white matter ischemic demyelination. 2. No acute intracranial abnormality. Report was called by Dr. Fishman to Dr. Singh at 0540 a.m.] Head CTA 10/20/17 04:56 CONCLUSION: 1. Unremarkable head CTA examination. 2. No evidence for large vessel occlusion or significant intracranial stenosis. Neck CTA 10/20/17 04:56 CONCLUSION: 1. No significant carotid artery flow-limiting stenosis. 2. Patent vertebral arteries bilaterally. 3. Small bilateral, left greater than right, pleural effusions. Discharge Plan - Discharge Disposition Patient Disposition: [facility] Hospice/Med Facility - Discharge Condition Condition: Fair - Discharge Order Discharge Orders: Discharge Order (Routine); Ordered 10/21/17 Ordered By: Jose Livingston - Physicians Team Primary Care Provider: Aguilar Barriga Attending Provider: Jose Livingston Other Providers: [employer] ; [facility],[place] ; David Singh MD ; Mai Regalado MD
== END 2017-10-21 21:20 | disposition hospice, inpatient (51) ==
LOC: NEPC 10:31 → NEDA 13:30 → N05 16:00 → HIMC 10-20 16:28
PROVIDERS: ADMIT Internal Medicine; ATTEND Internal Medicine